=== PATIENT | female | born 1945 | race Caucasian/White ===

== ENCOUNTER 2020-01-22 08:00 | Outpatient (CLI) | payer MEDICARE, BC, SELFPAY ==
--- NOTE | ~2020-01-22 | US_ITS ---
US arterial ankle brachial ind INDICATION: Disorder of the capillaries TECHNIQUE: Segmental pressures and plethysmographic and Doppler waveforms of the brachial and lower e xtremity arteries were obtained. COMPARISON: 12/21/2014 FINDINGS: Right and left brachial artery pressures of 128 mm Hg and 135 mm Hg, respectively, are concordant (no rmal difference <= 30 mmHg). The right ankle-brachial index (JOHN) is 1.03 (normal >= 0.9-1.0). The right great toe-brachial index (TBI) is 0.84 (normal >= 0.60). The left JOHN is 1.14. The left TBI is 0.87. IMPRESSION: 1. Normal bilateral ankle and toe brachial indices. Reviewed, dictated and finalized at location A.
== END 2020-01-22 08:01 | disposition home or self-care (01) ==
LOC: ANHIMG 08:08
PROVIDERS: PCP Nurse Practitioner Adult Health; Visit Provider Nurse Practitioner Adult Health
DX: I79.8 Other disorders of arteries, arterioles and capillaries in diseases classified elsewhere (principal)
CPT/HCPCS: 93922

== ENCOUNTER 2020-10-03 10:18 | Inpatient (IN) | payer MEDICARE, BC, SELFPAY ==
[2020-10-03] VITALS (15 sets, daily range): BP systolic 99–150; BP diastolic 41–82; PULSE 56–70; RESP 16–29; TEMP 36.2–36.6; O2SAT 95–100
--- NOTE | ~2020-10-03 | US_ITS ---
EXAMINATION: US right upper quadrant EXAM DATE: 10/03/2020 12:43 INDICATION: N/V, transaminitis. TECHNIQUE: Multiple grayscale and Doppler images of the abdomen right upper quadrant were obtained (b y a technologist who performed the scan) and subsequently reviewed. There is no prior study for richa charles. FINDINGS: The pancreatic head and body are normal in appearance. The pancreatic tail is not visualized. The l iver has normal echogenicity and contour. There are no focal liver lesions identified. There is no evidence of intrahepatic biliary duct dilation. Portal venous flow was seen in the hepatopedal, nor mal direction and has normal Doppler waveform. No right-sided hydronephrosis. Common bile duct measures 4 mm, which is normal. The gallbladder fossa is unremarkable. IMPRESSION: 1. Unremarkable abdominal ultrasound exam. Reviewed, dictated and finalized at location A. RVISOR STONE
--- NOTE | ~2020-10-03 | CT_ITS ---
EXAMINATION: CTA chest PE protocol EXAM DATE: 10/03/2020 13:53 INDICATION: shortness of breath, elevated dimer, covid +. TECHNIQUE: Spiral CTA of the chest (pulmonary arteries) was performed with 100 cc Omnipaque 350 intr avenous contrast injection. Images were acquired during the pulmonary arterial phase. Coronal maxi mum intensity projection 3D-reconstructions were created by the technologist on dedicated workstation . Axial, coronal and sagittal reformatted images were reviewed. The dose-length product (DLP) for t his examination was 266.79 mGy-cm. The exposure was tailored according to patient size (auto mA exp osure control), and iterative reconstruction (ASIR) was used as additional dose reduction technique. There is no prior study for comparison. FINDINGS: There are no pulmonary emboli in the 1st through 3rd order (central and interlobar) pulmon gilbert arteries. Some loss of attenuation in the segmental pulmonary arteries due to respiratory motion , but no intraluminal filling defects suspected. No thoracic aortic dissection. Small to moderate bilateral patchy groundglass opacities Appearance is typical of early stage COVID 19. Less likely acute possibilities include influenza, pulmonary edema or hemorrhage. There are no pleural or pericardial effusions. Tracheobronchial tree is patent. There is no media stinal, hilar or axillary lymphadenopathy. There is no pneumothorax. Heart normal in size. Ther e is mild to moderate coronary arterial calcification, arterial sclerosis. There is small sliding gas troesophageal hiatal hernia. There is thoracic spondylosis without osteoblastic or osteolytic lesion s identified. IMPRESSION: 1. Limited segmental evaluation, but no pulmonary emboli are suspected. 2. Small to moderate amount of bilateral acute ground glass airspace disease, most likely COVID-19 p neumonia. Reviewed, dictated and finalized at location A. GHT CAR BUILDER IMPRESSION: 1. Limited segmental evaluation, but no pulmonary emboli are suspected. 2. Small to moderate amount of bilateral acute ground glass airspace disease, most likely COVID-19 pneumonia.
--- NOTE | ~2020-10-03 | XR_ITS ---
EXAMINATION: XR chest 1V portable DATE: 10/05/2020 15:42 INDICATION: Pneumonia presenting with cough and shortness of breath TECHNIQUE: frontal view of the chest was obtained. COMPARISON: Chest radiograph dated 10/03/2020 and 12/12/2016 FINDINGS: Chronic elevation of the anterior right hemidiaphragm. Interval increase in patchy bilateral airspace opacities throughout both lungs consistent with worsening pneumonia. The cardiomediastinal silhouett e is normal. Peripherally calcified 1.8 cm diameter fusiform splenic artery aneurysm without signific ant change since 12/12/2016. IMPRESSION: 1. Interval progression of patchy bilateral lung disease consistent with worsening pneumonia. 2. Chronic splenic artery aneurysm. Reviewed, dictated and finalized at location H. SAFETY ASSISTANT IMPRESSION: 1. Interval progression of patchy bilateral lung disease consistent with worsen ing pneumonia. 2. Chronic splenic artery aneurysm.
--- NOTE | ~2020-10-03 | US_ITS ---
EXAMINATION: US right upper quadrant DATE: 10/08/2020 09:29 INDICATION: Abnormal liver function tests. TECHNIQUE: Multiple grayscale and Doppler ultrasound images of the abdomen were obtained. COMPARISON: Ultrasound 10/03/2020, chest CT 10/03/2020 FINDINGS: The visualized portions of the head and body of the pancreas are normal. The liver is pascual l without focal lesion. There is normal flow in main portal vein. The gallbladder is absent. The comm on duct is normal and measures 7 mm. IMPRESSION: 1. Normal right upper quadrant ultrasound status post cholecystectomy. Reviewed, dictated and finalized at location A. TOGRAPHIC MACHINE OPERATOR
--- NOTE | ~2020-10-03 | US_ITS ---
EXAMINATION: US venous doppler LE EXAM DATE: 10/03/2020 13:17 INDICATION: Elevated d-dimer, shortness of breath. COVID exposure. TECHNIQUE: Multiple grayscale, color flow and Doppler images of the lower extremity deep venous syste ms bilaterally were obtained and reviewed. There is no prior study for comparison. FINDINGS: Right side: The right common femoral, femoral and profunda veins demonstrate normal color flow, respi ratory variation, augmentation and compressibility. Compressibility, color flow confirmed within the right popliteal, posterior tibial, peroneal, and greater saphenous veins. Left side: The left common femoral, femoral and profunda veins demonstrate normal color flow, respira tory variation, augmentation and compressibility. Compressibility, color flow confirmed within the l eft popliteal, posterior tibial, peroneal, and greater saphenous veins. IMPRESSION: No lower extremity deep venous thrombosis bilaterally. Reviewed, dictated and finalized at location A. AGE PICK UP MAN
--- NOTE | ~2020-10-03 | XR_ITS ---
EXAMINATION: XR chest 1V portable EXAM DATE: 10/03/2020 11:39 INDICATION: Shortness of breath. COVID + . TECHNIQUE: Portable AP frontal chest x-ray was obtained. Comparison is made to prior examination from 12/12/2016. FINDINGS: Small amount of somewhat linear bilateral midlung zone atelectasis or infection. The lungs are otherwise clear. There are no pleural effusions. The cardiomediastinal silhouette is within nor mal limits. There is no pneumothorax suspected. The bones and soft tissues are unremarkable. Chroni tino elevated right hemidiaphragm. IMPRESSION: Small amount of bilateral midlung zone atelectasis and/or infection. Reviewed, dictated and finalized at location A. TRIC ARC WELDER IMPRESSION: Small amount of bilateral midlung zone atelectasis and/or infection .
--- NOTE | ~2020-10-03 | XR_ITS ---
EXAMINATION: XR chest 1V portable DATE: 10/08/2020 09:35 INDICATION: COVID-19 pneumonia. TECHNIQUE: A single frontal view of the chest was obtained. COMPARISON: Chest single view 10/05/2020, 03/14/2012, chest CT 10/03/2020 FINDINGS: Again seen is eventration of anterior right hemidiaphragm. There are patchy airspace opacit ies in all lung zones bilaterally with a peripheral predominance with architectural distortion. No pl eural effusion or pneumothorax. The heart size is normal. There is a 1.9 cm rim calcified saccular an eurysm of splenic artery. IMPRESSION: 1. Diffuse lung disease with interval improvement, consistent with pneumonia. 2. 1.9 cm saccular aneurysm of splenic artery, stable from 03/14/2012. Reviewed, dictated and finalized at location A. RNMENT SERVICE EXECUTIVE
--- NOTE | 2020-10-03 10:26 | PC.NURSE ---
Tess Grewal. Daughter phone number ([phone])
--- NOTE | 2020-10-03 11:18 | ECG_ITS ---
Measurements Intervals [place] Rate: 60 P: 23 IL: 139 QRS: 15 QRSD: 81 T: 36 QT: 409 QTc: 411 Interpretive Statements SINUS RHYTHM BORDERLINE ST-T WAVE ABNORMALITY- ANTEROLAT/INF LEADS BASELINE ARTIFACT- I, II, III, AVR, AVL, AVF, V1-V6 BORDERLINE ECG Electronically Signed On 10-03-2020 17:13:05 PROCESS MECHANIC by Alex Garber D.O.
[2020-10-03 11:42] LABS: Basophils Percent Auto 0.5 % (0.2-1.2); Eosinophils Percent Auto 0.5 % (0-4.4); Hematocrit 40.3 % (37.0-47.0); Hemoglobin 13.7 g/dL (12.0-15.0); Immature Granulocyte Absolute 0.05 K/mm3 (0.00-0.031); Immature Granulocyte Percent A 0.9 % (0-0.5); Lymphocytes Absolute Auto 0.71 K/mm3 (0.9-3.2); Lymphocytes Percent Auto 12.9 % (18.3-44.2); Mean Corpuscular Hemoglobin 32.2 pg (26-34); Mean Corpuscular Volume 94.8 fl (80-100); Mean Platelet Volume 11.7 fl (7.4-10.4); Monocytes Absolute Auto 0.8 K/mm3 (0.1-0.6); Monocytes Percent Auto 13.6 % (2.6-8.5); Neutrophils Percent Auto 71.6 % (45.5-73.1); Platelet Count Result 161 k/mm3 (150-375); Red Blood Count 4.25 M/mm3 (4.2-5.4); Red Cell Distribution Width 14.9 % (11.5-14.5); White Blood Count 5.5 K/mm3 (4.5-10.0)
[2020-10-03 11:46] LABS: Carboxyhemoglobin 0.7 % THb (0-2.0); Fractional Inspired Oxygen 21 %; HCO3 ABG 21.6 mEq/l (22.0-26.0); Oxygen Content ABG 17.4 %vol (16.0-22.0); Oxygen Saturation ABG 92.8 % (95.0-100.0); Oxyhemoglobin 91.5 % THb (90.0-100.0); PCO2 ABG 33.4 mmHg (35.0-45.0); PO2 ABG 62.7 mmHg (80.0-100.0); PO2 FiO2 Ratio Arterial Blood 2.99 %; Reduced Hemoglobin 7.8 %THb (0-5.0); Total Hemoglobin 13.5 g/dL (12.0-18.0); pH ABG 7.428 (7.350-7.450)
[2020-10-03 11:47] LABS: Device ROOM AIR; Modified Allen's Test Pass; Site Drawn RIGHT RADIAL
[2020-10-03 11:51] LABS: INR 0.9; Prothrombin Time 12.8 Seconds (11.1-14.7)
[2020-10-03 11:52] LABS: Partial Thromboplastin Time 26.7 SECONDS (22.3-36.8)
[2020-10-03 11:54] LABS: Lactic Acid Reflex 0.9 mmol/L (0.7-2.1)
--- NOTE | 2020-10-03 11:54 | PC.NURSE ---
Called chemistry Rosalba added on bnp at 11:54.
--- NOTE | 2020-10-03 11:55 | ED.SOB ---
HPI - SOB/Dyspnea General Chief Complaint: Shortness of Breath/Dyspnea Stated Complaint: COVID +, SOB Time Seen by Provider: 10/03/20 11:21 Source: patient Mode of arrival: EMS Limitations: no limitations History of Present Illness HPI Narrative: This is a 74 year old female that present to the ER for weakness. Reports she was diagnosed with COVID about 8 days ago. Reports she was seen at an urgent care for this and has finished 5 days of steroid and a Z pac. Reports she has been weak, is having fever, cough and congestion. Also reports shortness of breath. She lives at home alone. Denies chest pain. Related Data Home Medications Medication Instructions Recorded Confirmed albuterol sulfate [ProAir HFA] INHALATION 10/03/20 10/03/20 amitriptyline 10/03/20 atorvastatin 10/03/20 benzonatate mg PO 10/03/20 ergocalciferol (vitamin D2) 10/03/20 esomeprazole magnesium mg 10/03/20 folic acid 10/03/20 irbesartan mg 10/03/20 montelukast mg 10/03/20 oxybutynin chloride mg PO 10/03/20 paroxetine HCl mg PO 10/03/20 Allergies Allergy/AdvReac Type Severity Reaction Status Date / Time latex Allergy Severe REDNESS,BLISTERS, Verified 10/03/20 11:20 RASH bacitracin Allergy Unknown RASH, Verified 10/03/20 11:20 REDNESS codeine Allergy Unknown THROAT Verified 10/03/20 11:20 SWEELING polymyxin B Allergy Unknown RASH, Verified 10/03/20 11:20 REDNESS buspirone AdvReac Mild STOMACH Verified 10/03/20 11:20 UPSET rofecoxib AdvReac Mild NAUSEA Verified 10/03/20 11:20 celecoxib AdvReac Unknown NAUSEA Verified 10/03/20 11:20 gabapentin AdvReac Unknown Verified 10/03/20 11:21 Review of Systems Review of Systems: Narrative: CONSTITUTIONAL: Reports fever ENT: Reports congestion, sore throat CARDIOVASCULAR: Denies chest pain or edema. RESPIRATORY: Reports cough and dyspnea. GASTROINTESTINAL: Reports nausea, vomiting GENITOURINARY: Denies dysuria NEUROLOGIC: Reports generalized weakness. All systems reviewed & are unremarkable except as noted in HPI and below PMFSH Past Medical History Medical History (Updated 10/03/20 @ 15:12 by Mouna Baker PA-C) History of coronary artery disease History of gastroesophageal reflux (GERD) History of hyperlipidemia History of hypertension Family History Family History (Updated 10/03/20 @ 16:16 by Melissa Guaman RN) Father Lung cancer Mother Alzheimer disease Social History Social History (Updated 10/03/20 @ 12:01 by Mouna Baker PA-C) Smoking status: Never smoker Alcohol intake: current Drinks per week: 1 Substance use: never Gender identity (if verbalized by the patient): Female Spiritual care concerns: No Exam Narrative: Exam Narrative: GENERAL: Elderly, well-nourished, and in no acute distress. HEAD: Normocephalic, atraumatic. EYES: PERRLA and EOMI. ENT: Nares clear, no rhinorrhea or epistaxis. Mucous membranes moist. Oropharynx without tonsillar hypertrophy exudate or other lesions. Bilateral TMs pearly bustos non-bulging NECK: Supple. No adenopathy or masses. CHEST: Clear to auscultation. No respiratory distress. No wheezes rales or rhonchi HEART: Regular rate and rhythm. No murmur heard. Normal peripheral pulses. ABDOMEN: Soft, nontender, nondistended, normal active bowel sounds. EXTREMITIES: Normal range of motion. No edema. SKIN: Warm, dry, no rash. NEURO: No focal deficits. Alert and oriented x3. PSYCH: Normal mood and affect Course Consultations Consultation #1: Spoke with hospitalist about patient and work-up accepts admission Date: 10/03/20 Time: 16:22 Vital Signs Vital signs: Vital Signs Temperature 97.1 F L 10/03/20 10:45 Pulse Rate 70 10/03/20 10:45 Respiratory Rate 26 H 10/03/20 10:45 Blood Pressure 150/61 H 10/03/20 10:45 Pulse Oximetry 97 10/03/20 10:45 Temperature 97.1 F L 10/03/20 10:45 Pulse Rate 65 10/03/20 15:25 Respiratory Rate 16 10/03/20 15:25 Blood Pressure 140/62
[2020-10-03 11:56] LABS: Anion Gap 8 mmol/L (8-16); Blood Urea Nitrogen 21 mg/dL (7-17); Calcium 8.8 mg/dL (8.4-10.2); Carbon Dioxide 28 mmol/L (22-30); Chloride 103 mmol/L (98-107); Estimated CRCL calculation 57 ml/min; Estimated Glomerular Filt Rate > 60; Glucose 117 mg/dL (65-105); Sodium 139 mmol/L (137-145)
[2020-10-03 11:57] LABS: Alanine Aminotransferase 152 U/L (4-35); Albumin Level 3.8 g/dL (3.5-5.1); Alkaline Phosphatase 187 U/L (38-126); Aspartate Amino Transferase 142 U/L (14-36); Bilirubin,Total 1.1 mg/dL (0.2-1.3); CRP 6.6 mg/dL (<1.0); Lactate Dehydrogenase 860 U/L (313-618)
--- NOTE | 2020-10-03 11:59 | PC.NURSE ---
called heme, Rose Marie, added on D Dimer [id number]
[2020-10-03] MEDS: ONDANSETRON INJ 4 MG/2 ML VIAL IV PUSH (12:15)
[2020-10-03] MEDS: SODIUM CHLORIDE 0.9% IV 500 ML BAG IV CONT (12:15)
[2020-10-03 12:17] LABS: D Dimer 0.82 ug/mL (<0.48)
[2020-10-03 12:27] LABS: NT Pro B Type Natriuretic Pept 136 PG/ML (5-100)
[2020-10-03] MEDS: DEXAMETHASONE SOD PHOS INJ 4 MG/ML VIAL 6 MG IV PUSH (15:07)
[2020-10-03] MEDS: ENOXAPARIN 40 MG/0.4 ML SYRINGE SUB-Q (15:08)
--- NOTE | 2020-10-03 16:05 | ADMGEN ---
This patient, Renee Fernandez, was admitted to 3 [facility] Surg Room 327-01. Patient/family oriented to hospital policies and general routines including ID bracelet, bed and alarms, visiting hours, pain management, procedures, bathroom and other care routines, personal items, smoking policy, room service/diet, and visiting hours. Information on how to activate the Rapid Response Team has been discussed. Patient/Family are encouraged to report perceived risks to care and to ask questions if they do not understand what they are told or what they should do.
--- NOTE | 2020-10-03 18:15 | PM.IMHP ---
H&P: HPI History of Present Illness Date/Time: 10/03/20 18:15 Chief complaint: COVID Pneumonia, Acute resp failure with hypoxia Narrative: Renee Fernandez is a 74 year old female with a past medical history of coronary artery disease hypertension GERD patient was initially seen at an urgent care 8 days ago and was positive for COVID-19 patient was started on short course of steroid and azithromycin completed 5 day course, patient states today she felt more tired short of breath and difficulty taking patient deep breath, presented emergency depart to further evaluate patient had a CTA of the chest is negative for pulmonary emboli but does show ground-glass appeared consistent with COVID-19, lower extremity Doppler was negative for DVT. Patient is started on dexamethasone, currently patient does not have fever, and requiring 2 L of oxygen per nasal cannula, will continue to monitor Review of Systems Review of Systems: All systems reviewed & are unremarkable except as noted in HPI and below PMFSH Past Medical History Medical History (Updated 10/03/20 @ 18:23 by Meliton Arrington MD) History of coronary artery disease History of gastroesophageal reflux (GERD) History of hyperlipidemia History of hypertension Family History Family History (Updated 10/03/20 @ 16:16 by Melissa Guaman RN) Father Lung cancer Mother Alzheimer disease Social History Social History (Updated 10/03/20 @ 12:01 by Mouna Baker PA-C) Smoking status: Never smoker Alcohol intake: current Drinks per week: 1 Substance use: never Gender identity (if verbalized by the patient): Female Spiritual care concerns: No Meds Home Medications and Allergies Home Medications Medication Instructions Recorded Confirmed Type albuterol sulfate [ProAir HFA] 2 puff INHALATION QID PRN 10/03/20 10/03/20 History alprazolam [Xanax] 0.25 mg PO DAILY PRN 10/03/20 10/03/20 History atorvastatin 10 mg PO DAILY 10/03/20 10/03/20 History esomeprazole magnesium 40 mg PO DAILY 10/03/20 10/03/20 History folic acid 1 mg PO DAILY 10/03/20 10/03/20 History irbesartan 300 mg PO DAILY 10/03/20 10/03/20 History methotrexate sodium 12.5 mg PO BID 10/03/20 10/03/20 History montelukast 10 mg PO DAILY 10/03/20 10/03/20 History oxybutynin chloride 5 mg PO DAILY 10/03/20 10/03/20 History paroxetine HCl 40 mg PO DAILY 10/03/20 10/03/20 History Allergies Allergy/AdvReac Type Severity Reaction Status Date / Time latex Allergy Severe REDNESS,BLISTERS, Verified 10/03/20 11:20 RASH bacitracin Allergy Unknown RASH, Verified 10/03/20 11:20 REDNESS codeine Allergy Unknown THROAT Verified 10/03/20 11:20 SWEELING polymyxin B Allergy Unknown RASH, Verified 10/03/20 11:20 REDNESS buspirone AdvReac Mild STOMACH Verified 10/03/20 11:20 UPSET rofecoxib AdvReac Mild NAUSEA Verified 10/03/20 11:20 celecoxib AdvReac Unknown NAUSEA Verified 10/03/20 11:20 gabapentin AdvReac Unknown Verified 10/03/20 11:21 Vital Signs Vital Signs - 24 hr 10/03/20 10:45 10/03/20 12:00 10/03/20 12:01 Temperature 97.1 F L Pulse Rate 70 62 62 Respiratory Rate 26 H Blood Pressure 150/61 H 116/81 118/60 Pulse Oximetry 97 10/03/20 12:02 10/03/20 12:16 10/03/20 13:01 Temperature Pulse Rate 64 61 63 Respiratory Rate 18 29 H Blood Pressure 101/59 L 113/55 L 150/65 H Pulse Oximetry 100 96 10/03/20 13:59 10/03/20 14:01 10/03/20 15:01 Temperature Pulse Rate 64 64 64 Respiratory Rate 23 H 22 H 29 H Blood Pressure 136/68 140/62 99/82 L Pulse Oximetry 99 100 10/03/20 15:25 10/03/20 16:45 10/03/20 16:53 Temperature 97.7 F Pulse Rate 65 56 L Respiratory Rate 16 18 Blood Pressure 140/62 142/41 H Pulse Oximetry 98 98 95 Exam Narrative: Exam Narrative: Patient is comfortable, NAD HEENT: eyes are clear and none icteric LUNGS: Bilateral fair entry with rhonchi HEART: RR S1S2 ABD: BS+, Soft and nontender Lower extremities: no
[2020-10-04] VITALS (11 sets, daily range): BP systolic 116–150; BP diastolic 59–72; PULSE 52–80; RESP 16–20; TEMP 36.4–37.2; O2SAT 93–97
[2020-10-04] MEDS: DEXAMETHASONE SOD PHOS INJ 4 MG/ML VIAL 6 MG IV PUSH (09:00)
[2020-10-04] MEDS: ENOXAPARIN 40 MG/0.4 ML SYRINGE SUB-Q (09:00)
[2020-10-04] MEDS: PARoxetine 20 MG TABLET 40 MG PO (09:02)
[2020-10-04] MEDS: FOLIC ACID 1 MG TABLET PO (09:02)
[2020-10-04] MEDS: PANTOPRAZOLE 40 MG TABLET PO (09:02)
[2020-10-04] MEDS: MONTELUKAST SODIUM 10 MG TABLET PO (09:03)
[2020-10-04] MEDS: ACETAMINOPHEN 325 MG TABLET 650 MG PO (13:44)
--- NOTE | 2020-10-04 15:12 | PM.IMPN ---
Progress Note: A&P Assessment and Plan (1) Pneumonia due to COVID-19 virus: Code(s): U07.1 - COVID-19; J12.89 - Other viral pneumonia Status: Acute Assessment and Plan: 10/04/20 15:12 Renee Fernandez is a 74 year old female with a past medical history of coronary artery disease hypertension GERD patient was initially seen at an urgent care 9 days ago and was positive for COVID-19 patient was started on short course of steroid and azithromycin completed 5 day course, patient stated upon arrival, she felt more tired, short of breath and difficulty taking patient deep breath, presented emergency depart to further evaluate patient had a CTA of the chest is negative for pulmonary emboli but does show ground-glass appeared consistent with COVID-19, lower extremity Doppler was negative for DVT. Patient is started on dexamethasone, today patient is stable feeling little better not as short of breath, currently patient does not have fever, and requiring 2 L of oxygen per nasal cannula, will continue to monitor, will have a PT OT evaluate the patient (2) History of hypertension: Code(s): Z86.79 - Personal history of other diseases of the circulatory system Status: Inactive Assessment and Plan: Will continue home regimen and monitor (3) History of gastroesophageal reflux (GERD): Code(s): Z87.19 - Personal history of other diseases of the digestive system Status: Inactive Assessment and Plan: Will continue PPI (4) History of coronary artery disease: Code(s): Z86.79 - Personal history of other diseases of the circulatory system Status: Inactive Assessment and Plan: Patient is clinically stable no complaint of chest pain Subjective Date/time seen: 10/04/20 15:12 Renee Fernandez is a 74 year old female with a past medical history of coronary artery disease hypertension GERD patient was initially seen at an urgent care 9 days ago and was positive for COVID-19 patient was started on short course of steroid and azithromycin completed 5 day course, patient stated upon arrival, she felt more tired, short of breath and difficulty taking patient deep breath, presented emergency depart to further evaluate patient had a CTA of the chest is negative for pulmonary emboli but does show ground-glass appeared consistent with COVID-19, lower extremity Doppler was negative for DVT. Patient is started on dexamethasone, today patient is stable feeling little better not as short of breath, currently patient does not have fever, and requiring 2 L of oxygen per nasal cannula, will continue to monitor, will have a PT OT evaluate the patient Review of Systems Review of Systems: All systems reviewed & are unremarkable except as noted in HPI and below Exam Narrative: Exam Narrative: Patient is comfortable, NAD HEENT: eyes are clear and none icteric LUNGS: Bilateral fair entry with rhonchi HEART: RR S1S2 ABD: BS+, Soft and nontender Lower extremities: no edema SKIN: nonjaundiced Neuro: grossly intact. Objective Data Vital Signs Vital Signs: Vital Signs - 24 hr 10/03/20 15:25 10/03/20 16:45 10/03/20 16:53 Temperature 97.7 F Pulse Rate 65 56 L Respiratory Rate 16 18 Blood Pressure 140/62 142/41 H Pulse Oximetry 98 98 95 10/03/20 20:00 10/03/20 21:44 10/04/20 00:00 Temperature 97.8 F 97.6 F Pulse Rate 65 61 60 Respiratory Rate 18 16 Blood Pressure 128/61 150/70 H Pulse Oximetry 96 96 93 10/04/20 04:00 10/04/20 08:00 10/04/20 09:00 Temperature 98.1 F 97.8 F Pulse Rate 57 L 63 Respiratory Rate 18 18 Blood Pressure 125/65 140/59 L Pulse Oximetry 97 97 97 10/04/20 11:07 10/04/20 12:00 10/04/20 13:00 Temperature 98.0 F Pulse Rate 70 Respiratory Rate 20 Blood Pressure 129/59 L Pulse Oximetry 93 96 96 Intake/Output Intake/Output: Intake & Output 10/01/20 10/02/20 10/03/20 10/04/20 23:59 23:59 23:59 23:59 Intake Total 540 240 Outp
[2020-10-04] MEDS: ATORVASTATIN 10 MG TABLET PO (20:04)
[2020-10-04] MEDS: IRBESARTAN 150 MG TABLET 300 MG PO (20:05)
[2020-10-04 23:12] LABS: Add Urine Microscopic? YES; Appearance Urine Clear (Clear); Bacteria Urine Trace /hpf; Bilirubin Urine Negative (Negative); Blood Urine Negative (Negative); Color Urine Yellow (Yellow); Glucose Urine UA Negative (Negative); Ketones Urine Negative (Negative); Leukocyte Esterase Ur Negative LEU/UL (Negative); Mucus Urine Rare /lpf; Nitrate Urine Negative (Negative); Protein Urine 2+ mg/dL (Negative); RBC Urine 0-2 /hpf (0-2); Squamous Epithelial Cell Urine Few /hpf (Few); WBC Urine 0-3 /hpf
[2020-10-04 23:17] LABS: Specific Grav Ur 1.031 (1.001-1.035)
[2020-10-04] MEDS: diphenhydrAMINE HCl INJ 50 MG/ML VIAL 25 MG IV PUSH (23:49)
[2020-10-05] VITALS (12 sets, daily range): BP systolic 105–145; BP diastolic 46–77; PULSE 58–77; RESP 16–22; TEMP 36.6–38.8; O2SAT 93–96
[2020-10-05] MEDS: ALPRAZolam (*CRX) 0.25 MG TABLET PO (00:27)
[2020-10-05] MEDS: ACETAMINOPHEN 325 MG TABLET 650 MG PO ×2 (01:12→08:25)
[2020-10-05 07:57] LABS: Basophils Percent Auto 0.3 % (0.2-1.2); Eosinophils Percent Auto 0.2 % (0-4.4); Hematocrit 32.3 % (37.0-47.0); Hemoglobin 11.1 g/dL (12.0-15.0); Immature Granulocyte Absolute 0.05 K/mm3 (0.00-0.031); Immature Granulocyte Percent A 0.8 % (0-0.5); Lymphocytes Absolute Auto 0.83 K/mm3 (0.9-3.2); Lymphocytes Percent Auto 12.9 % (18.3-44.2); Mean Corpuscular HGB Conc 34.4 g/dl (32-36); Mean Corpuscular Hemoglobin 32.4 pg (26-34); Mean Corpuscular Volume 94.2 fl (80-100); Mean Platelet Volume 11.2 fl (7.4-10.4); Monocytes Absolute Auto 0.7 K/mm3 (0.1-0.6); Monocytes Percent Auto 11.3 % (2.6-8.5); Neutrophils Absolute Auto 4.8 K/mm3 (1.3-6.7); Neutrophils Percent Auto 74.5 % (45.5-73.1); Platelet Count Result 159 k/mm3 (150-375); Red Blood Count 3.43 M/mm3 (4.2-5.4); Red Cell Distribution Width 14.6 % (11.5-14.5); White Blood Count 6.4 K/mm3 (4.5-10.0)
[2020-10-05 08:15] LABS: Alanine Aminotransferase 96 U/L (4-35); Albumin Level 3.1 g/dL (3.5-5.1); Alkaline Phosphatase 128 U/L (38-126); Anion Gap 5 mmol/L (8-16); Aspartate Amino Transferase 71 U/L (14-36); Bilirubin,Total 0.7 mg/dL (0.2-1.3); Blood Urea Nitrogen 26 mg/dL (7-17); CRP 3.9 mg/dL (<1.0); Calcium 8.3 mg/dL (8.4-10.2); Carbon Dioxide 31 mmol/L (22-30); Chloride 102 mmol/L (98-107); Estimated CRCL calculation 52 ml/min; Estimated Glomerular Filt Rate > 60; Glucose 89 mg/dL (65-105); Potassium 3.7 mmol/L (3.4-5.0); Sodium 138 mmol/L (137-145)
[2020-10-05] MEDS: ENOXAPARIN 40 MG/0.4 ML SYRINGE SUB-Q (08:27)
[2020-10-05] MEDS: DEXAMETHASONE SOD PHOS INJ 4 MG/ML VIAL 6 MG IV PUSH (08:27)
[2020-10-05] MEDS: PARoxetine 20 MG TABLET 40 MG PO (08:28)
[2020-10-05] MEDS: MONTELUKAST SODIUM 10 MG TABLET PO (08:28)
[2020-10-05] MEDS: FOLIC ACID 1 MG TABLET PO (08:28)
[2020-10-05] MEDS: PANTOPRAZOLE 40 MG TABLET PO (08:28)
[2020-10-05] MEDS: ONDANSETRON INJ 4 MG/2 ML VIAL IV PUSH (09:00)
--- NOTE | 2020-10-05 09:23 | PCOTNOTE ---
OT evaluation attempted. Per RN, hold this AM due to patient increased O2 needs and not feeling will. Will attempt as appropriate at later time.
--- NOTE | 2020-10-05 09:28 | PCPTNOTE ---
PT evaluation attempted. Per RN, hold this AM due to patient increased O2 needs and fever. Will attempt as appropriate at later time.
--- NOTE | 2020-10-05 14:53 | PM.IMPN ---
Progress Note: A&P Assessment and Plan (1) Pneumonia due to COVID-19 virus: Code(s): U07.1 - COVID-19; J12.89 - Other viral pneumonia Status: Acute Assessment and Plan: 10/05/20 14:53 Renee Fernandez is a 74 year old female with a past medical history of coronary artery disease hypertension GERD patient was initially seen at an urgent care 11 days ago and was positive for COVID-19 patient was started on short course of steroid and azithromycin completed 5 day course, patient stated upon arrival, she felt more tired, short of breath and difficulty taking patient deep breath, presented emergency depart to further evaluate patient had a CTA of the chest is negative for pulmonary emboli but does show ground-glass appeared consistent with COVID-19, lower extremity Doppler was negative for DVT. Patient is started on dexamethasone, on 10/04 patient complained of fever and was requiring 2 L of oxygen patient was started on azithromycin and Rocephin for possible secondary bacterial pneumonia, apparently patient developed rash and itchiness upon receiving Rocephin patient was given Benadryl, stopped Rocephin this morning patient still states feeling tired shortness of breath, denies any fever or chills, will repeat chest x-ray will continue present management, most likely patient is having slow recovery from COVID-19. (2) History of hypertension: Code(s): Z86.79 - Personal history of other diseases of the circulatory system Status: Inactive Assessment and Plan: Will continue home regimen and monitor (3) History of gastroesophageal reflux (GERD): Code(s): Z87.19 - Personal history of other diseases of the digestive system Status: Inactive Assessment and Plan: Will continue PPI (4) History of coronary artery disease: Code(s): Z86.79 - Personal history of other diseases of the circulatory system Status: Inactive Assessment and Plan: Patient is clinically stable no complaint of chest pain Subjective Date/time seen: 10/05/20 14:53 Renee Fernandez is a 74 year old female with a past medical history of coronary artery disease hypertension GERD patient was initially seen at an urgent care 11 days ago and was positive for COVID-19 patient was started on short course of steroid and azithromycin completed 5 day course, patient stated upon arrival, she felt more tired, short of breath and difficulty taking patient deep breath, presented emergency depart to further evaluate patient had a CTA of the chest is negative for pulmonary emboli but does show ground-glass appeared consistent with COVID-19, lower extremity Doppler was negative for DVT. Patient is started on dexamethasone, on 10/04 patient complained of fever and was requiring 2 L of oxygen patient was started on azithromycin and Rocephin for possible secondary bacterial pneumonia, apparently patient developed rash and itchiness upon receiving Rocephin patient was given Benadryl, stopped Rocephin this morning patient still states feeling tired shortness of breath, denies any fever or chills, will repeat chest x-ray will continue present management, most likely patient is having slow recovery from COVID-19. Review of Systems Review of Systems: All systems reviewed & are unremarkable except as noted in HPI and below Exam Narrative: Exam Narrative: Patient is comfortable, NAD HEENT: eyes are clear and none icteric LUNGS: Bilateral fair entry with rhonchi HEART: RR S1S2 ABD: BS+, Soft and nontender Lower extremities: no edema SKIN: nonjaundiced Neuro: grossly intact. Objective Data Vital Signs Vital Signs: Vital Signs - 24 hr 10/04/20 16:00 10/04/20 20:00 10/04/20 20:04 Temperature 98.9 F Pulse Rate 71 64 Respiratory Rate 20 Blood Pressure 124/62 Pulse Oximetry 94 95 10/04/20 20:25 10/05/20 00:00 10/05/20 01:12 Temperature 97.9 F 99.7 F H 101.8 F H Pulse Rate 80 77 Respiratory Rate 20 22 H Blood P
[2020-10-05] MEDS: ATORVASTATIN 10 MG TABLET PO (20:02)
[2020-10-05] MEDS: IRBESARTAN 150 MG TABLET 300 MG PO (20:02)
[2020-10-06] VITALS (9 sets, daily range): BP systolic 117–131; BP diastolic 47–81; PULSE 54–68; RESP 16–20; TEMP 36.6–38.1; O2SAT 94–98
[2020-10-06] MEDS: ACETAMINOPHEN 325 MG TABLET 650 MG PO ×3 (03:12→21:30)
[2020-10-06 07:55] LABS: Basophils Percent Auto 0.4 % (0.2-1.2); Eosinophils Percent Auto 0.1 % (0-4.4); Hematocrit 30.4 % (37.0-47.0); Hemoglobin 10.3 g/dL (12.0-15.0); Immature Granulocyte Absolute 0.05 K/mm3 (0.00-0.031); Immature Granulocyte Percent A 0.7 % (0-0.5); Lymphocytes Absolute Auto 0.75 K/mm3 (0.9-3.2); Lymphocytes Percent Auto 10.9 % (18.3-44.2); Mean Corpuscular HGB Conc 33.9 g/dl (32-36); Mean Corpuscular Hemoglobin 31.7 pg (26-34); Mean Corpuscular Volume 93.5 fl (80-100); Mean Platelet Volume 11.4 fl (7.4-10.4); Monocytes Absolute Auto 0.9 K/mm3 (0.1-0.6); Monocytes Percent Auto 13.4 % (2.6-8.5); Neutrophils Absolute Auto 5.1 K/mm3 (1.3-6.7); Neutrophils Percent Auto 74.5 % (45.5-73.1); Platelet Count Result 162 k/mm3 (150-375); Red Blood Count 3.25 M/mm3 (4.2-5.4); Red Cell Distribution Width 14.6 % (11.5-14.5); White Blood Count 6.9 K/mm3 (4.5-10.0)
[2020-10-06 08:18] LABS: Alanine Aminotransferase 123 U/L (4-35); Albumin Level 2.9 g/dL (3.5-5.1); Alkaline Phosphatase 118 U/L (38-126); Anion Gap 6 mmol/L (8-16); Aspartate Amino Transferase 89 U/L (14-36); Bilirubin,Total 0.7 mg/dL (0.2-1.3); Blood Urea Nitrogen 24 mg/dL (7-17); CRP 5.5 mg/dL (<1.0); Calcium 8.3 mg/dL (8.4-10.2); Carbon Dioxide 27 mmol/L (22-30); Chloride 105 mmol/L (98-107); Estimated CRCL calculation 57 ml/min; Estimated Glomerular Filt Rate > 60; Glucose 109 mg/dL (65-105); Sodium 138 mmol/L (137-145)
[2020-10-06] MEDS: DEXAMETHASONE SOD PHOS INJ 4 MG/ML VIAL 6 MG IV PUSH (08:41)
[2020-10-06] MEDS: ENOXAPARIN 40 MG/0.4 ML SYRINGE SUB-Q ×2 (08:41→21:28)
[2020-10-06] MEDS: FOLIC ACID 1 MG TABLET PO (08:41)
[2020-10-06] MEDS: MONTELUKAST SODIUM 10 MG TABLET PO (08:42)
[2020-10-06] MEDS: PARoxetine 20 MG TABLET 40 MG PO (08:42)
[2020-10-06] MEDS: PANTOPRAZOLE 40 MG TABLET PO (08:42)
[2020-10-06 09:07] LABS: Potassium 3.4 mmol/L (3.4-5.0)
[2020-10-06] MEDS: POTASSIUM CHLORIDE 20 MEQ PACKET (FOR LIQUID) 40 MEQ PO (12:42)
--- NOTE | 2020-10-06 13:25 | PM.IMPN ---
Progress Note: A&P Assessment and Plan (1) Pneumonia due to COVID-19 virus: Code(s): U07.1 - COVID-19; J12.89 - Other viral pneumonia Status: Acute Assessment and Plan: 10/06/20 13:25 Renee Fernandez is a 74 year old female with a past medical history of coronary artery disease hypertension GERD patient was initially seen at an urgent care 12 days ago and was positive for COVID-19 patient was started on short course of steroid and azithromycin completed 5 day course, patient stated upon arrival, she felt more tired, short of breath and difficulty taking patient deep breath, presented emergency depart to further evaluate patient had a CTA of the chest is negative for pulmonary emboli but does show ground-glass appeared consistent with COVID-19, lower extremity Doppler was negative for DVT. Patient is started on dexamethasone, on 10/04 patient complained of fever and was requiring 2 L of oxygen patient was started on azithromycin and Rocephin for possible secondary bacterial pneumonia, apparently patient developed rash and itchiness upon receiving Rocephin patient was given Benadryl, stopped Rocephin this morning patient still states feeling tired shortness of breath, denies any fever or chills. Patient still complains of fever and shortness of breath, is states was not able to sleep, patient has a low-grade intermittent fever is only requiring 2 L of oxygen, repeat x-ray 10/05 showed infiltrate patient was started on Levaquin patient is on dexamethasone, most likely patient is having slow recovery from COVID-19, patient also has history of rheumatoid arthritis and on methotrexate, patient was diagnosed 12 days ago, since patient was diagnosed with COVID-19, its too late now to start the patient on remdesivir will continue dexamethasone, levofloxcin and and monitor oxygen and fever and further recommendation to follow, I spoke with the patient's daughter and answered all her questions. (2) History of hypertension: Code(s): Z86.79 - Personal history of other diseases of the circulatory system Status: Inactive Assessment and Plan: Will continue home regimen and monitor (3) History of gastroesophageal reflux (GERD): Code(s): Z87.19 - Personal history of other diseases of the digestive system Status: Inactive Assessment and Plan: Will continue PPI (4) History of coronary artery disease: Code(s): Z86.79 - Personal history of other diseases of the circulatory system Status: Inactive Assessment and Plan: Patient is clinically stable no complaint of chest pain Subjective Date/time seen: 10/06/20 13:25 Renee Fernandez is a 74 year old female with a past medical history of coronary artery disease hypertension GERD patient was initially seen at an urgent care 12 days ago and was positive for COVID-19 patient was started on short course of steroid and azithromycin completed 5 day course, patient stated upon arrival, she felt more tired, short of breath and difficulty taking patient deep breath, presented emergency depart to further evaluate patient had a CTA of the chest is negative for pulmonary emboli but does show ground-glass appeared consistent with COVID-19, lower extremity Doppler was negative for DVT. Patient is started on dexamethasone, on 10/04 patient complained of fever and was requiring 2 L of oxygen patient was started on azithromycin and Rocephin for possible secondary bacterial pneumonia, apparently patient developed rash and itchiness upon receiving Rocephin patient was given Benadryl, stopped Rocephin this morning patient still states feeling tired shortness of breath, denies any fever or chills. Patient still complains of fever and shortness of breath, is states was not able to sleep, patient has a low-grade intermittent fever is only requiring 2 L of oxygen, repeat x-ray 10/05 showed infiltrate patient was started on Levaquin patient is on dexamethasone, most likely patie
[2020-10-06] MEDS: IRBESARTAN 150 MG TABLET 300 MG PO (21:28)
[2020-10-06] MEDS: ALPRAZolam (*CRX) 0.25 MG TABLET PO (21:28)
[2020-10-06] MEDS: ATORVASTATIN 10 MG TABLET PO (21:28)
[2020-10-06] MEDS: guaiFENesin/DEXTROMETHORPHAN 10 ML UDC PO (22:20)
[2020-10-06] MEDS: MELATONIN 5 MG TABLET PO (22:20)
[2020-10-07] VITALS (8 sets, daily range): BP systolic 95–135; BP diastolic 40–81; PULSE 54–801; RESP 16–28; TEMP 36.3–37.7; O2SAT 96–97
[2020-10-07] MEDS: guaiFENesin/DEXTROMETHORPHAN 10 ML UDC PO ×3 (02:24→17:43)
[2020-10-07] MEDS: ACETAMINOPHEN 325 MG TABLET 650 MG PO (05:05)
[2020-10-07 07:09] LABS: Basophils Percent Auto 0.2 % (0.2-1.2); Hematocrit 30.6 % (37.0-47.0); Hemoglobin 10.5 g/dL (12.0-15.0); Immature Granulocyte Absolute 0.08 K/mm3 (0.00-0.031); Lymphocytes Absolute Auto 0.65 K/mm3 (0.9-3.2); Mean Corpuscular HGB Conc 34.3 g/dl (32-36); Mean Corpuscular Hemoglobin 32.1 pg (26-34); Mean Corpuscular Volume 93.6 fl (80-100); Mean Platelet Volume 11.7 fl (7.4-10.4); Monocytes Absolute Auto 0.6 K/mm3 (0.1-0.6); Monocytes Percent Auto 7.2 % (2.6-8.5); Neutrophils Absolute Auto 6.8 K/mm3 (1.3-6.7); Neutrophils Percent Auto 83.6 % (45.5-73.1); Platelet Count Result 174 k/mm3 (150-375); Red Blood Count 3.27 M/mm3 (4.2-5.4); Red Cell Distribution Width 14.6 % (11.5-14.5); White Blood Count 8.1 K/mm3 (4.5-10.0)
[2020-10-07 07:42] LABS: Alanine Aminotransferase 178 U/L (4-35); Albumin Level 2.8 g/dL (3.5-5.1); Alkaline Phosphatase 134 U/L (38-126); Anion Gap 4 mmol/L (8-16); Aspartate Amino Transferase 123 U/L (14-36); Bilirubin,Total 0.8 mg/dL (0.2-1.3); Blood Urea Nitrogen 22 mg/dL (7-17); CRP 7.6 mg/dL (<1.0); Calcium 8.5 mg/dL (8.4-10.2); Carbon Dioxide 30 mmol/L (22-30); Chloride 104 mmol/L (98-107); Estimated CRCL calculation 57 ml/min; Estimated Glomerular Filt Rate > 60; Glucose 80 mg/dL (65-105); Potassium 3.6 mmol/L (3.4-5.0); Sodium 138 mmol/L (137-145)
[2020-10-07] MEDS: ALPRAZolam (*CRX) 0.25 MG TABLET PO ×2 (09:00→17:43)
[2020-10-07] MEDS: ENOXAPARIN 40 MG/0.4 ML SYRINGE SUB-Q ×2 (09:06→21:08)
[2020-10-07] MEDS: FOLIC ACID 1 MG TABLET PO (09:07)
[2020-10-07] MEDS: MONTELUKAST SODIUM 10 MG TABLET PO (09:07)
[2020-10-07] MEDS: PANTOPRAZOLE 40 MG TABLET PO (09:08)
[2020-10-07] MEDS: PARoxetine 20 MG TABLET 40 MG PO (09:09)
[2020-10-07] MEDS: DEXAMETHASONE SOD PHOS INJ 4 MG/ML VIAL 6 MG IV PUSH (11:23)
--- NOTE | 2020-10-07 15:25 | PM.IMPN ---
Progress Note: A&P Assessment and Plan (1) Pneumonia due to COVID-19 virus: Code(s): U07.1 - COVID-19; J12.89 - Other viral pneumonia Status: Acute Assessment and Plan: 10/07/20 15:25 Renee Fernandez is a 74 year old female with a past medical history of coronary artery disease hypertension GERD patient was initially seen at an urgent care 12 days ago and was positive for COVID-19 patient was started on short course of steroid and azithromycin completed 5 day course, patient stated upon arrival, she felt more tired, short of breath and difficulty taking patient deep breath, presented emergency depart to further evaluate patient had a CTA of the chest is negative for pulmonary emboli but does show ground-glass appeared consistent with COVID-19, lower extremity Doppler was negative for DVT. Patient is started on dexamethasone, on 10/04 patient complained of fever and was requiring 2 L of oxygen patient was started on azithromycin and Rocephin for possible secondary bacterial pneumonia, apparently patient developed rash and itchiness upon receiving Rocephin patient was given Benadryl, stopped Rocephin this morning patient still states feeling tired shortness of breath, denies any fever or chills. Patient still complains of fever and shortness of breath, is states was not able to sleep, patient has a low-grade intermittent fever is only requiring 2 L of oxygen, repeat x-ray 10/05 showed infiltrate patient was started on Levaquin patient is on dexamethasone, most likely patient is having slow recovery from COVID-19, patient also has history of rheumatoid arthritis and on methotrexate, patient was diagnosed 12 days ago, since patient was diagnosed with COVID-19, its too late now to start the patient on remdesivir will continue dexamethasone, levofloxcin and and monitor oxygen and fever and further recommendation to follow, I spoke with the patient's daughter and answered all her questions. today 10/07 patient has been fever free for 2 days now and only requiring 2 L of oxygen, however patient has history of anxiety and goes into panic attacks with tachypnea, patient after talking to her family, we have started the patient on Xanax 0.25 mg every 8 hours as needed, patient is liver enzymes are elevated most likely secondary to COVID-19 inflammation will order acute hepatitis pain and liver ultrasound, will continue to monitor, will continue to monitor if she remains clinically stable, possibly discharge patient home tomorrow will do the home O2 eval. (2) History of hypertension: Code(s): Z86.79 - Personal history of other diseases of the circulatory system Status: Inactive Assessment and Plan: Will continue home regimen and monitor (3) History of gastroesophageal reflux (GERD): Code(s): Z87.19 - Personal history of other diseases of the digestive system Status: Inactive Assessment and Plan: Will continue PPI (4) History of coronary artery disease: Code(s): Z86.79 - Personal history of other diseases of the circulatory system Status: Inactive Assessment and Plan: Patient is clinically stable no complaint of chest pain Subjective Date/time seen: 10/07/20 15:25 Renee Fernandez is a 74 year old female with a past medical history of coronary artery disease hypertension GERD patient was initially seen at an urgent care 12 days ago and was positive for COVID-19 patient was started on short course of steroid and azithromycin completed 5 day course, patient stated upon arrival, she felt more tired, short of breath and difficulty taking patient deep breath, presented emergency depart to further evaluate patient had a CTA of the chest is negative for pulmonary emboli but does show ground-glass appeared consistent with COVID-19, lower extremity Doppler was negative for DVT. Patient is started on dexamethasone, on 10/04 patient complained of fever and was requiring 2 L of oxygen patient was sta
[2020-10-07] MEDS: MELATONIN 5 MG TABLET PO (21:08)
[2020-10-07] MEDS: IRBESARTAN 150 MG TABLET 300 MG PO (21:08)
[2020-10-07] MEDS: ATORVASTATIN 10 MG TABLET PO (21:08)
[2020-10-08] VITALS (11 sets, daily range): BP systolic 100–112; BP diastolic 41–61; PULSE 55–69; RESP 16–22; TEMP 36.4–37.7; O2SAT 85–98
[2020-10-08 06:37] LABS: Basophils Percent Auto 0.2 % (0.2-1.2); Eosinophils Percent Auto 0.2 % (0-4.4); Hematocrit 30.9 % (37.0-47.0); Hemoglobin 10.6 g/dL (12.0-15.0); Immature Granulocyte Percent A 1.1 % (0-0.5); Lymphocytes Absolute Auto 0.86 K/mm3 (0.9-3.2); Lymphocytes Percent Auto 9.8 % (18.3-44.2); Mean Corpuscular HGB Conc 34.3 g/dl (32-36); Mean Corpuscular Hemoglobin 32.6 pg (26-34); Mean Corpuscular Volume 95.1 fl (80-100); Monocytes Absolute Auto 0.8 K/mm3 (0.1-0.6); Monocytes Percent Auto 8.7 % (2.6-8.5); Platelet Count Result 197 k/mm3 (150-375); Red Blood Count 3.25 M/mm3 (4.2-5.4); Red Cell Distribution Width 14.6 % (11.5-14.5); White Blood Count 8.8 K/mm3 (4.5-10.0)
[2020-10-08 06:55] LABS: Alanine Aminotransferase 148 U/L (4-35); Albumin Level 2.8 g/dL (3.5-5.1); Alkaline Phosphatase 135 U/L (38-126); Anion Gap 5 mmol/L (8-16); Aspartate Amino Transferase 83 U/L (14-36); Bilirubin,Total 0.9 mg/dL (0.2-1.3); Blood Urea Nitrogen 23 mg/dL (7-17); Calcium 8.6 mg/dL (8.4-10.2); Carbon Dioxide 29 mmol/L (22-30); Chloride 103 mmol/L (98-107); Estimated CRCL calculation 57 ml/min; Estimated Glomerular Filt Rate > 60; Glucose 79 mg/dL (65-105); Potassium 3.9 mmol/L (3.4-5.0); Sodium 137 mmol/L (137-145)
[2020-10-08 07:03] LABS: CRP 12.5 mg/dL (<1.0)
[2020-10-08 07:53] LABS: Hepatitis B Surface Antigen Negative (Negative)
[2020-10-08 07:59] LABS: HAV RESULT Negative (Negative); Hepatitis B Core IgM Result Negative (Negative)
[2020-10-08 08:10] LABS: Hepatitis C Virus Antibody Negative (Negative)
[2020-10-08] MEDS: FOLIC ACID 1 MG TABLET PO (08:55)
[2020-10-08] MEDS: ENOXAPARIN 40 MG/0.4 ML SYRINGE SUB-Q (08:55)
[2020-10-08] MEDS: DEXAMETHASONE SOD PHOS INJ 4 MG/ML VIAL 6 MG IV PUSH (08:55)
[2020-10-08] MEDS: MONTELUKAST SODIUM 10 MG TABLET PO (08:56)
[2020-10-08] MEDS: guaiFENesin/DEXTROMETHORPHAN 10 ML UDC PO (08:56)
[2020-10-08] MEDS: PANTOPRAZOLE 40 MG TABLET PO (08:56)
[2020-10-08] MEDS: PARoxetine 20 MG TABLET 40 MG PO (08:56)
--- NOTE | 2020-10-08 13:06 | HOMEO2EVAL ---
Home Oxygen Evaluation RC: Home Oxygen (O2) Evaluation Start: 10/08/20 08:23 Freq: ONCE Status: Active Protocol: RPE Activity Type Activity Date Activity User E-Sign Co-Sign Detail Recorded Client Recorded Date Recorded By Document 10/08/20 11:00 [email or web address] 10/08/20 13:06 HARVEY Document 10/08/20 11:03 [email or web address] [email or web address] 10/08/20 13:06 HARVEY Document 10/08/20 11:05 [email or web address] [email or web address] 10/08/20 13:06 HARVEY Document 10/08/20 11:07 [email or web address] [email or web address] 10/08/20 13:06 HARVEY Document 10/08/20 11:09 [email or web address] [email or web address] 10/08/20 13:06 HARVEY Document 10/08/20 11:11 [email or web address] [email or web address] 10/08/20 13:06 HARVEY Document 10/08/20 11:15 [email or web address] [email or web address] 10/08/20 13:06 HARVEY 10/08/20 10/08/20 10/08/20 11:00 11:03 11:05 Home O2 Evaluation Test Phase Resting Resting Resting Oxygen Delivery Room Air High Flow Nasal High Flow Nasal Cannula Cannula Oxygen Flow Rate (L/min) 2 3 Pulse Oximetry (90-100 %) 85 L 86 L 90 Home Oxygen Evaluation Comments 10/08/20 10/08/20 10/08/20 11:07 11:09 11:11 Home O2 Evaluation Test Phase Exercise Exercise Exercise Oxygen Delivery High Flow Nasal High Flow Nasal High Flow Nasal Cannula Cannula Cannula Oxygen Flow Rate (L/min) 3 4 5 Pulse Oximetry (90-100 %) 87 L 87 L 90 Home Oxygen Evaluation Comments 10/08/20 11:15 Home O2 Evaluation Test Phase Resting Oxygen Delivery High Flow Nasal Cannula Oxygen Flow Rate (L/min) 3 Pulse Oximetry (90-100 %) Home Oxygen Evaluation Comments PT REQUIRES 3 L REST AND 5L WITH EXERTION
--- NOTE | 2020-10-08 14:01 | PM.DS ---
DS: Admitting Diagnosis Admitting Diagnosis Admitting Diagnosis: COVID Pneumonia, Acute resp failure with hypoxia DS: Discharge Diagnosis Discharge Diagnosis (1) Pneumonia due to COVID-19 virus: Code(s): U07.1 - COVID-19; J12.89 - Other viral pneumonia Status: Acute Assessment and Plan: 10/07/20 15:25 Renee Fernandez is a 74 year old female with a past medical history of coronary artery disease hypertension GERD patient was initially seen at an urgent care 12 days ago and was positive for COVID-19 patient was started on short course of steroid and azithromycin completed 5 day course, patient stated upon arrival, she felt more tired, short of breath and difficulty taking patient deep breath, presented emergency depart to further evaluate patient had a CTA of the chest is negative for pulmonary emboli but does show ground-glass appeared consistent with COVID-19, lower extremity Doppler was negative for DVT. Patient is started on dexamethasone, on 10/04 patient complained of fever and was requiring 2 L of oxygen patient was started on azithromycin and Rocephin for possible secondary bacterial pneumonia, apparently patient developed rash and itchiness upon receiving Rocephin patient was given Benadryl, stopped Rocephin this morning patient still states feeling tired shortness of breath, denies any fever or chills. Patient still complains of fever and shortness of breath, is states was not able to sleep, patient has a low-grade intermittent fever is only requiring 2 L of oxygen, repeat x-ray 10/05 showed infiltrate patient was started on Levaquin patient is on dexamethasone, most likely patient is having slow recovery from COVID-19, patient also has history of rheumatoid arthritis and on methotrexate, patient was diagnosed 12 days ago, since patient was diagnosed with COVID-19, its too late now to start the patient on remdesivir will continue dexamethasone, levofloxcin and and monitor oxygen and fever and further recommendation to follow, I spoke with the patient's daughter and answered all her questions. today 10/07 patient has been fever free for 2 days now and only requiring 2 L of oxygen, however patient has history of anxiety and goes into panic attacks with tachypnea, patient after talking to her family, we have started the patient on Xanax 0.25 mg every 8 hours as needed, patient is liver enzymes are elevated most likely secondary to COVID-19 inflammation will order acute hepatitis pain and liver ultrasound, will continue to monitor, will continue to monitor if she remains clinically stable, possibly discharge patient home tomorrow will do the home O2 eval. (2) History of hypertension: Code(s): Z86.79 - Personal history of other diseases of the circulatory system Status: Inactive Assessment and Plan: Will continue home regimen and monitor (3) History of gastroesophageal reflux (GERD): Code(s): Z87.19 - Personal history of other diseases of the digestive system Status: Inactive Assessment and Plan: Will continue PPI (4) History of coronary artery disease: Code(s): Z86.79 - Personal history of other diseases of the circulatory system Status: Inactive Assessment and Plan: Patient is clinically stable no complaint of chest pain DS: Summary Hospital Course Reason for hospitalization: Chief complaint: COVID Pneumonia, Acute resp failure with hypoxia Narrative: Renee Fernandez is a 74 year old female with a past medical history of coronary artery disease hypertension GERD patient was initially seen at an urgent care 8 days ago and was positive for COVID-19 patient was started on short course of steroid and azithromycin completed 5 day course, patient states today she felt more tired short of breath and difficulty taking patient deep breath, presented emergency depart to further evaluate patient had a CTA of the chest is negative for pulmonary emboli but does show ground-glass
--- NOTE | 2020-10-08 14:38 | HOMEO2EVAL ---
Home Oxygen Evaluation RC: Home Oxygen (O2) Evaluation Start: 10/08/20 08:23 Freq: ONCE Status: Active Protocol: RPE Activity Type Activity Date Activity User E-Sign Co-Sign Detail Recorded Client Recorded Date Recorded By Document 10/08/20 11:00 [email or web address] [email or web address] 10/08/20 13:06 AHRVEY Document 10/08/20 11:03 [email or web address] [email or web address] 10/08/20 13:06 HARVEY Document 10/08/20 11:05 [email or web address] [email or web address] 10/08/20 13:06 HARVEY Document 10/08/20 11:07 [email or web address] [email or web address] 10/08/20 13:06 HARVEY Document 10/08/20 11:09 [email or web address] [email or web address] 10/08/20 13:06 HARVEY Document 10/08/20 11:11 [email or web address] [email or web address] 10/08/20 13:06 HARVEY Document 10/08/20 11:15 [email or web address] [email or web address] 10/08/20 13:06 HARVEY 10/08/20 10/08/20 10/08/20 11:00 11:03 11:05 Home O2 Evaluation Test Phase Resting Resting Resting Oxygen Delivery Room Air High Flow Nasal High Flow Nasal Cannula Cannula Oxygen Flow Rate (L/min) 2 3 Pulse Oximetry (90-100 %) 85 L 86 L 90 Home Oxygen Evaluation Comments 10/08/20 10/08/20 10/08/20 11:07 11:09 11:11 Home O2 Evaluation Test Phase Exercise Exercise Exercise Oxygen Delivery High Flow Nasal High Flow Nasal High Flow Nasal Cannula Cannula Cannula Oxygen Flow Rate (L/min) 3 4 5 Pulse Oximetry (90-100 %) 87 L 87 L 90 Home Oxygen Evaluation Comments 10/08/20 11:15 Home O2 Evaluation Test Phase Resting Oxygen Delivery High Flow Nasal Cannula Oxygen Flow Rate (L/min) 3 Pulse Oximetry (90-100 %) Home Oxygen Evaluation Comments PT REQUIRES 3 L REST AND 5L WITH EXERTION
--- NOTE | 2020-10-08 14:38 | PCRCNOTE ---
HOME O2 EVAL DONE, PT NEEDS 3 AT REST AND 5 WITH ACTIVITY. TANK IN ROOM AND READY FOR DISCHARGE. DME AWARE PT IS STAYING WITH DAUGHTER IN [place] AND THEY HAVE ADDRESS.
== END 2020-10-08 17:30 | disposition home or self-care (01) | DRG 177 ==
LOC: ANHED 15:12 → ANH3MEDSUR 15:12
PROVIDERS: Physician Assistant; Admitting Provider Family Medicine; Emergency Provider Emergency Medicine; PCP Nurse Practitioner Adult Health; Visit Provider Family Medicine
DX: U07.1 COVID-19 (principal); J96.01 Acute respiratory failure with hypoxia; J12.89 Other viral pneumonia; I10 Essential (primary) hypertension; I25.10 Atherosclerotic heart disease of native coronary artery without angina pectoris; E78.5 Hyperlipidemia, unspecified; K21.9 Gastro-esophageal reflux disease without esophagitis; M06.9 Rheumatoid arthritis, unspecified; F41.0 Panic disorder [episodic paroxysmal anxiety]; R74.8 Abnormal levels of other serum enzymes; Z79.899 Other long term (current) drug therapy
CPT/HCPCS: 36415; 36600; 71045; 71275; 76705; 80048; 80053; 80074; 80076; 81001; 82375; 82728; 82805; 83050; 83605; 83615; 83880; 85025; 85380; 85610; 85730; 86140; 93005; 93970; 96374; 97161; 97165; 99285; A9270; J0456; J0696; J1100; J1200; J1650; J1956; J2405; J7040; Q9967

== ENCOUNTER 2020-11-01 12:43 | Outpatient (CLI) | payer MEDICARE, BC, SELFPAY ==
--- NOTE | 2020-11-01 | ECHO_ITS ---
Patient Info Name: Renee Fernandez Age: 75 years : 1945 Gender: Female Ht: 65 in Wt: 185 lbs BSA: 1.99 m2 HR: 65 bpm BP: 138 / 58 mmHg Heart Rhythm: Sinus Rhythm Technical Quality: Fair Exam Date: 11/01/2020 1:03 PM Exam Location: [facility] Patient Status: Outpatient Admit Date: 11/01/2020 Staff Ordering Physician: FabianoMarti NP Lan Analyst: Marian Madera RDCS Attending Provider: BerryMarti NP Exam Type: CA echo doppler color flow Study Info Indications U07.1 - COVID 19 Complete two-dimensional, color flow and Doppler transthoracic echocardiogram is performed. Summary 1. Complete two-dimensional, color flow and Doppler transthoracic echocardiogram is performed. 2. Normal left and right ventricular systolic function. 3. Moderate left atrial enlargement. 4. Small amount of mitral and tricuspid regurgitation. 5. Enlarged right ventricle. Left Ventricle Left ventricular chamber dimension is normal. Left ventricular systolic function is normal, estimated at 60-65%. The left ventricular diastolic function is grade I diastolic dysfunction. Right Ventricle Right ventricular chamber dimension is mildly enlarged. Left Atria Left atrial chamber dimension is moderately enlarged. Right Atria Right atrial chamber dimension is normal. Aortic Valve The aortic valve is trileaflet. There is mild aortic valve sclerosis. Pulmonic Valve The pulmonic valve is normal. Mitral Valve The mitral valve has normal leaflets. There is trace mitral valve regurgitation. Tricuspid Valve The tricuspid valve leaflets are normal. Pericardium/Pleural The pericardium appears normal. Aorta The aortic root size at the sinus of Valsalva is normal. Left Ventricular Outflow Tract Name Value Normal LVOT 2D LVOT Diameter 2.0 cm LVOT Doppler LVOT Peak Gradient 7 mmHg LVOT Mean Gradient 4 mmHg LVOT VTI 29 cm LVOT VTI/AV VTI Ratio 0.8 LVOT Stroke Volume 90 ml LVOT CO 5.7 l/min LVOT CI 2.9 l/min/m2 Pulmonic Valve Name Value Normal RVOT Doppler RVOT Peak Gradient 2 mmHg PV Doppler PV Peak Gradient 3 mmHg Mitral Valve Name Value Normal MV Doppler MV Decel Freestone 624 cm/s2 MV PHT 38 ms
--- NOTE | ~2020-11-01 | US_ITS ---
EXAMINATION: US venous doppler [facility] DATE: 11/01/2020 14:11 INDICATION: Left lower limb pain TECHNIQUE: Paris scale images without and with compression and Doppler images of the left lower extrem ity veins were obtained. COMPARISON: 10/03/2020 FINDINGS: The left common femoral vein, profunda femoral vein, femoral vein, popliteal vein, peroneal trunk, posterior tibial veins, and greater saphenous vein are patent. IMPRESSION: 1. Patent left lower extremity veins. No evidence of deep venous thrombosis. Reviewed, dictated and finalized at location A. SCOPIC ENGINEERING TECHNICIAN
--- NOTE | ~2020-11-01 | CT_ITS ---
EXAMINATION: CTA chest PE protocol DATE: 11/01/2020 14:50 INDICATION: Shortness of breath, recovery from COVID 19 TECHNIQUE: Computed tomography angiography (CTA) of the chest was performed with 100 mL Omnipaque-350 intravenous contrast timed to evaluate the pulmonary arteries. Coronal maximum intensity projection 3D-reconstructions were created by the technologist. The dose-length product (DLP) was 344.83 mGy-cm. Automated exposure control and iterative reconstruction technique were employed. COMPARISON: 10/03/2020 FINDINGS: The pulmonary arteries are well-opacified. No pulmonary embolism is identified. Patchy grou ndglass opacities are present which demonstrate interval improvement compared to the prior CT, consis tent with resolving COVID 19 pneumonia. No new superimposed airspace opacities are identified. There is no pleural effusion or pneumothorax. The heart size is normal. There is improved right hilar lymph adenopathy, likely reactive. Calcified coronary artery atherosclerosis is noted. Punctate calcificati ons in an otherwise normal spleen likely represent healed granulomatous disease. The gallbladder is s urgically absent. There is mild enlargement of the common bile duct and central intrahepatic ducts wh ich is likely due to post cholecystectomy state. There is a 1.6 cm cyst of the liver. There is mild t horacic spondylosis. IMPRESSION: 1. No pulmonary embolism or acute cardiopulmonary abnormality. 2. Findings consistent with resolving COVID 19 pneumonia. Reviewed, dictated and finalized at location A. RANS REHABILITATION COUNSELOR
== END 2020-11-01 12:44 | disposition home or self-care (01) ==
LOC: ANHCARD 12:44
PROVIDERS: PCP Nurse Practitioner Adult Health; Visit Provider Nurse Practitioner Adult Health
DX: U07.1 COVID-19 (principal); R06.02 Shortness of breath; I51.7 Cardiomegaly
CPT/HCPCS: 71275; 93306; 93971; Q9967

== ENCOUNTER 2020-11-19 12:34 | Outpatient (CLI) | payer MEDICARE, BC, SELFPAY ==
--- NOTE | 2020-11-20 14:03 | WPDSIXMINUTE ---
Six Minute Walk This is a 6 minutes walk for exertional dyspnea. Findings: The patient's resting room air oxygen saturation measured by pulse oximetry was 97% and her heart rate was 59 bpm. Patient ambulated for 365.7 meters and oxygen saturation remained 89 to 95%. Heart rate at the end of the study was 71 bpm. There are no prior studies for comparison.
--- NOTE | 2020-11-20 14:06 | P.PCNPFT_ITS ---
PFT Interpretation This is a pulmonary function test with pre and post-bronchodilator spirometry, plethysmography and diffusing capacity. The test was performed and results interpreted in accordance with the 2019 and 2005 ATS/ERS Task Force guidelines respectively using the Félix/Isauro reference equations. Findings: Spirometry: The contour of the inspiratory and expiratory flow tracing are normal. The pre-bronchodilator FVC is 4.63 L, 94% predicted. The pre- bronchodilator FEV1 is 3.38 L, 89% predicted. The FEV1:FVC ratio is 73%. The post bronchodilator FVC is 4.71 L, representing a 2% increase. The post bronchodilator FEV1 is 3.53 L, representing a 4% increase. Plethysmography: The total lung capacity is 5.21 L, 80% predicted. The functional residual capacity is 2.23 L, 65% predicted. The residual volume is 0.59 L, 32% predicted Diffusing capacity: The absolute diffusing capacity is 26.1, 93% predicted. The diffusing capacity corrected for alveolar volume is 4.85, 110% predicted. Impression: The spirometry is normal without evidence of an obstructive abnormality. There is no significant improvement after inhaling a single dose of albuterol. There is a reduction in the residual volume and functional residual capacity with a normal total lung capacity. This is an abnormal but nonspecific lung volume pattern. The diffusing capacity is normal. There are no prior studies for comparison
--- NOTE | 2020-11-20 14:10 | PFT_ITS ---
The below report was completed in error on this patient and should be disregarded. PFT Interpretation This is a pulmonary function test with pre and post-bronchodilator spirometry, plethysmography and diffusing capacity. The test was performed and results interpreted in accordance with the 2019 and 2005 ATS/ERS Task Force guidelines respectively using the Félix/Polkoeb reference equations. Findings: Spirometry: The contour of the inspiratory and expiratory flow tracing are normal. The pre-bronchodilator FVC is 4.63 L, 94% predicted. The pre- bronchodilator FEV1 is 3.38 L, 89% predicted. The FEV1:FVC ratio is 73%. The post bronchodilator FVC is 4.71 L, representing a 2% increase. The post bronchodilator FEV1 is 3.53 L, representing a 4% increase. Plethysmography: The total lung capacity is 5.21 L, 80% predicted. The functional residual capacity is 2.23 L, 65% predicted. The residual volume is 0.59 L, 32% predicted Diffusing capacity: The absolute diffusing capacity is 26.1, 93% predicted. The diffusing capacity corrected for alveolar volume is 4.85, 110% predicted. Impression: The spirometry is normal without evidence of an obstructive abnormality. There is no significant improvement after inhaling a single dose of albuterol. There is a reduction in the residual volume and functional residual capacity with a normal total lung capacity. This is an abnormal but nonspecific lung volume pattern. The diffusing capacity is normal. There are no prior studies for comparison Report Initialized date/time: José Ann MD 11/20/20 / 0 Electronically signed by: José Ann MD 11/20/20 141 [facility]
== END 2020-11-19 12:35 | disposition home or self-care (01) ==
PROVIDERS: PCP Nurse Practitioner Adult Health; Visit Provider Nurse Practitioner Adult Health
DX: Z99.81 Dependence on supplemental oxygen (principal)
CPT/HCPCS: 94618

== ENCOUNTER 2021-02-18 08:52 | Outpatient (CLI) | payer MEDICARE, BC, SELFPAY ==
--- NOTE | ~2021-02-18 | CT_ITS ---
EXAMINATION: CT diagnostic chest wo con EXAM DATE: 02/18/2021 09:14 INDICATION: Dyspnea. Shortness of breath since COVID in September 2020. Cough. History of skin cancer. TECHNIQUE: Spiral CT of the chest without contrast. Axial, coronal and sagittal images were reviewe d. Coronal maximum intensity pixel images of chest reviewed. The dose-length product (DLP) for this examination was 210.59 mGy-cm. The exposure was tailored according to patient size (auto mA exposur e control), and iterative reconstruction (ASIR) was used as additional dose reduction technique. Comp arison is made to prior examination from 11/01/2020. FINDINGS: Resolution of previously seen COVID pneumonia. There is mild bronchiectasis and emphysema. There are several right upper lobe nodules measuring up to 3 mm in size unchanged, noncalcified gran ulomata. Trace pericardial effusion. Tracheobronchial tree is patent. There is no mediastinal, hil ar or axillary lymphadenopathy. There is no pneumothorax. Heart normal in size. There is modera te coronary arterial calcification, arterial sclerosis. There is small sliding gastroesophageal hiata l hernia. 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 There is mild thoracic spondylosis without osteoblastic or osteolytic lesions identified. IMPRESSION: 1. 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 2. Resolution of previously seen COVID pneumonia. 3. Mild emphysema and bronchiectasis. Reviewed, dictated and finalized at location A. IMPRESSION: 1. Splenic artery 2.2 cm saccular aneurysm, large enough to consider prophylac tic treatment. 2. Resolution of previously seen COVID pneumonia. 3. Mild emphysema and bronchiectasis.
== END 2021-02-18 08:53 | disposition home or self-care (01) ==
PROVIDERS: PCP Nurse Practitioner Adult Health; Visit Provider Nurse Practitioner Adult Health
DX: R06.00 Dyspnea, unspecified (principal); I72.8 Aneurysm of other specified arteries; J43.9 Emphysema, unspecified; J47.9 Bronchiectasis, uncomplicated; Z86.16 Personal history of COVID-19
CPT/HCPCS: 71250

== ENCOUNTER 2021-05-24 16:56 | Emergency (ER) | payer MEDICARE, BC, SELFPAY ==
--- NOTE | ~2021-05-24 | CT_ITS ---
EXAMINATION: CT abdomen pelvis w con EXAM DATE: 05/24/2021 19:12 INDICATION: Abdominal pain. Bilateral lower abdominal pain, cramping. Generalized weakness, dry heavi ng. Known aneurysm. TECHNIQUE: Spiral CT of the abdomen and pelvis was performed following intravenous injection of 100 m L Omnipaque 350. Axial, coronal and sagittal images of the abdomen and pelvis were reviewed. The do se-length product (DLP) for this examination was 932.63 mGy-cm. The exposure was tailored according to patient size (auto mA exposure control), and iterative reconstruction (ASIR) was used as additiona l dose reduction technique. Correlation is made to pulmonary CT 11/01/2020. FINDINGS: There is a 2.0 cm splenic artery aneurysm, does not appear changed compared to a pulmonary CT from last year. The liver, spleen, adrenal glands and pancreas are unremarkable. There are cholec ystectomy clips. Portal and splenic veins are patent. Kidneys enhance symmetrically. There is no h ydronephrosis. There is a punctate 2 mm left inferior calyceal stone. The uterus is unremarkable. The bladder is undistended at time of imaging. There is no retroperitoneal or pelvic lymphadenopathy . There is mild scattered arteriosclerotic disease. There are no findings to suggest appendicitis. Moderate sigmoid diverticulosis and possible mild unco mplicated diverticulitis. There is small sliding gastroesophageal hiatal hernia. There is expected a mount of colonic stool. No free intraperitoneal gas. The heart is normal in size. There are no p ericardial or pleural effusions. The lung bases are unremarkable. There are no osteoblastic or oste olytic lesions identified. IMPRESSION: 1. Moderate sigmoid diverticulosis with possible acute uncomplicated diverticulitis.. 2. Stable 2 cm splenic artery aneurysm. 3. Small hiatal hernia. 4. Punctate left nephrolithiasis. Reviewed, dictated and finalized at location A. IMPRESSION: 1. Moderate sigmoid diverticulosis with possible acute uncomplicated diverticu litis.. 2. Stable 2 cm splenic artery aneurysm. 3. Small hiatal hernia. 4. Punctate left nephrolithiasis.
[2021-05-24 17:07] VITALS: BP 124/69; PULSE 69; RESP 18; TEMP 36.4; O2SAT 96
--- NOTE | 2021-05-24 17:30 | ED.GENADULT ---
HPI - General Adult General Chief complaint: Abdominal Pain Stated complaint: abd pain Time Seen by Provider: 05/24/21 17:25 Source: patient History of Present Illness HPI narrative: Patient is a 75 y/o female complaining of intermittent lower abdominal pain for several months. She describes her pain as sharp and rates it as 8/10. She states that having a BM sometimes helps with her abdominal pain. She has no vomiting, diarrhea or dysuria. She states that her pain was so severe early today that she felt like she could not drive. She had to call her daughter for help. Related Data Home Medications Medication Instructions Recorded Confirmed alprazolam [Xanax] 0.25 mg PO DAILY PRN 10/03/20 10/03/20 atorvastatin 10 mg PO DAILY 10/03/20 10/03/20 esomeprazole magnesium 40 mg PO DAILY 10/03/20 10/03/20 folic acid 1 mg PO DAILY 10/03/20 10/03/20 irbesartan 300 mg PO DAILY 10/03/20 10/03/20 montelukast 10 mg PO DAILY 10/03/20 10/03/20 oxybutynin chloride 5 mg PO DAILY 10/03/20 10/03/20 paroxetine HCl 40 mg PO DAILY 10/03/20 10/03/20 aspirin 81 mg tablet,delayed 81 mg PO DAILY 11/22/20 release biotin 10,000 mcg capsule mcg PO 11/22/20 loratadine 10 mg tablet 10 mg PO DAILY 11/22/20 Allergies Allergy/AdvReac Type Severity Reaction Status Date / Time latex Allergy Severe REDNESS,BLISTERS, Verified 05/24/21 17:38 RASH ceftriaxone [From Rocephin] Allergy Intermediate Itching Verified 05/24/21 17:38 bacitracin Allergy Unknown RASH, Verified 05/24/21 17:38 REDNESS codeine Allergy Unknown THROAT Verified 05/24/21 17:38 SWEELING polymyxin B Allergy Unknown RASH, Verified 05/24/21 17:38 REDNESS buspirone AdvReac Mild STOMACH Verified 05/24/21 17:38 UPSET rofecoxib AdvReac Mild NAUSEA Verified 05/24/21 17:38 celecoxib AdvReac Unknown NAUSEA Verified 05/24/21 17:38 gabapentin AdvReac Unknown Verified 05/24/21 17:38 Review of Systems Constitutional: Constitutional: Denies chills, Denies fever(s), Denies headache(s) and Denies weakness Eyes: Eyes: Denies blurry vision ENT: Denies headache(s) and Denies neck pain Cardiovascular: Cardiovascular: Denies chest pain and Denies dyspnea Respiratory: Respiratory: Denies cough and Denies dyspnea Gastrointestinal: Gastrointestinal: Reports abdominal pain, Denies diarrhea, Denies nausea and Denies vomiting Genitourinary: Genitourinary: Denies hematuria and Denies dysuria Musculoskeletal: Musculoskeletal: Denies back pain and Denies neck pain Neurologic: Denies headache(s) and Denies weakness PMFSH Past Medical History Medical History History of coronary artery disease History of gastroesophageal reflux (GERD) History of hyperlipidemia History of hypertension Family History Family History Father Lung cancer Mother Alzheimer disease Social History Social History Smoking status: Never smoker Alcohol intake: current Drinks per week: 1 Substance use: never Gender identity (if verbalized by the patient): Female Spiritual care concerns: No Exam Const: General: no acute distress and well developed Orientation/consciousness: oriented to person, oriented to place, oriented to time and patient oriented x3 HENMT: Head: normocephalic Ears: external ears normal General nose exam: Normal external nose present Eyes: General: appearance normal, both eyes and all related structures Conjunctivae: conjunctivae normal Neck: Neck: normal visual inspection and full ROM Chest: Chest palpation & inspection: normal inspection of the chest and no tenderness Resp: Effort & Inspection: normal respiratory effort Auscultation: clear to auscultation bilaterally Cardio: Rate: regular rate Rhythm: regular rhythm GI: GI Palp: No abdominal tenderness and Yes Soft to palpation Skin: General skin exam
[2021-05-24 17:32] VITALS: BP 138/61; PULSE 73; RESP 22; TEMP 37; O2SAT 100
[2021-05-24 18:05] LABS: Hematocrit 41.9 % (37.0-47.0); Hemoglobin 13.4 g/dL (12.0-15.0); Immature Platelet Fraction Pct 8.6 % (0.9-11.2); Mean Corpuscular Hemoglobin 31.6 pg (26-34); Mean Corpuscular Volume 98.8 fl (80-100); Mean Platelet Volume 11.3 fl (7.4-10.4); Platelet Count Result 128 k/mm3 (150-375); Red Blood Count 4.24 M/mm3 (4.2-5.4); White Blood Count 13.1 K/mm3 (4.5-10.0)
[2021-05-24] MEDS: DICYCLOMINE HCL INJ 20 MG/2 ML VIAL IM (18:13)
[2021-05-24 18:24] LABS: Alanine Aminotransferase 18 U/L (4-35); Albumin Level 4.2 g/dL (3.5-5.1); Alkaline Phosphatase 117 U/L (38-126); Anion Gap 6 mmol/L (8-16); Aspartate Amino Transferase 37 U/L (14-36); Blood Urea Nitrogen 22 mg/dL (7-17); Calcium 9.5 mg/dL (8.4-10.2); Carbon Dioxide 23 mmol/L (22-30); Chloride 108 mmol/L (98-107); Estimated CRCL calculation 47 ml/min; Estimated Glomerular Filt Rate 54; Glucose 150 mg/dL (65-105); Lipase 202 U/L (23-300); Potassium 4.7 mmol/L (3.4-5.0); Sodium 137 mmol/L (137-145)
[2021-05-24 18:35] LABS: Band Neutrophils Percent 3 % (0-6); Lymphocytes Absolute Manual 0.91 K/mm3 (1.1-4.5); Monocytes Absolute Manual 0.65 K/mm3 (0.1-0.90); Monocytes Percent Manual 5 % (3-9); Neutrophils Absolute Manual 11.52 K/mm3 (1.7-7.2); Neutrophils Percent Manual 85 % (46-73); Total Cells Counted 100
[2021-05-24 18:36] LABS: Platelet Estimate Decreased (Adequate)
[2021-05-24 18:56] LABS: Add Urine Microscopic? YES; Amorphous Sediment Urine Moderate; Appearance Urine Cloudy (Clear); Bacteria Urine 3+ /hpf; Bilirubin Urine 1+ (Negative); Blood Urine 1+ (Negative); Color Urine Amber (Yellow); Glucose Urine UA Negative (Negative); Ketones Urine Trace mg/dL (Negative); Leukocyte Esterase Ur 1+ LEU/UL (Negative); Mucus Urine Rare /lpf; Nitrate Urine Negative (Negative); Protein Urine 2+ mg/dL (Negative); Squamous Epithelial Cell Urine Occasional /hpf (Few); WBC Urine 16-20 /hpf
[2021-05-24 19:16] VITALS: BP 142/57; PULSE 81; RESP 19; O2SAT 100
[2021-05-24 21:28] VITALS: BP 144/65; PULSE 70; RESP 20; TEMP 36.7; O2SAT 100
== END 2021-05-24 21:29 | disposition home or self-care (01) ==
PROVIDERS: Emergency Provider Emergency Medicine; PCP Nurse Practitioner Adult Health
DX: N39.0 Urinary tract infection, site not specified (principal); K57.92 Diverticulitis of intestine, part unspecified, without perforation or abscess without bleeding; I25.10 Atherosclerotic heart disease of native coronary artery without angina pectoris; K21.9 Gastro-esophageal reflux disease without esophagitis; E78.5 Hyperlipidemia, unspecified; I10 Essential (primary) hypertension
CPT/HCPCS: 36415; 51701; 74177; 80053; 81001; 83690; 85025; 85055; 87077; 87086; 87088; 87186; 96372; 99284; J0500; Q9967

== ENCOUNTER 2021-06-13 09:22 | Outpatient (CLI) | payer MEDICARE, BC, SELFPAY ==
--- NOTE | ~2021-06-13 | US_ITS ---
EXAMINATION: US thyroid DATE: 06/13/2021 10:04 INDICATION: Abnormal thyroid function tests. Hypothyroidism. TECHNIQUE: Multiple ultrasound images of the thyroid were obtained. COMPARISON: None. FINDINGS: The right thyroid lobe measures 4.7 x 1.5 x 1.6 cm. The left thyroid lobe measures 4.4 x 1.7 x 1.3 c m. In the right thyroid lobe, there is a 5 mm almost completely cystic nodule (TI-RADS TR1). IMPRESSION: 1. Small thyroid nodule, likely not clinically significant. No follow-up is needed. Reviewed, dictated and finalized at location A. IMPRESSION: 1. Small thyroid nodule, likely not clinically significant. No follow-up is nee ded.
== END 2021-06-13 09:23 | disposition home or self-care (01) ==
PROVIDERS: PCP Nurse Practitioner Adult Health; Visit Provider Nurse Practitioner Adult Health
DX: R94.6 Abnormal results of thyroid function studies (principal); E04.1 Nontoxic single thyroid nodule
CPT/HCPCS: 76536

== ENCOUNTER 2021-08-27 17:56 | Emergency (ER) | payer MEDICARE, BC, SELFPAY ==
[2021-08-27] VITALS (17 sets, daily range): BP systolic 105–160; BP diastolic 50–100; PULSE 74–85; RESP 18–26; TEMP 37.4–37.8; O2SAT 91–100
--- NOTE | ~2021-08-27 | CT_ITS ---
EXAMINATION: CTA chest PE abdomen pel DATE: 08/28/2021 11:36 CDT INDICATION: Chest and back pain. Elevated d-dimer. TECHNIQUE: Computed tomographic angiography (CTA) of the chest was performed with 100 mL Omnipaque-35 0 intravenous contrast. The dose-length product was 1307.29 mGy-cm. Maximum intensity projection 3D-r econstructions of the aorta and other arteries were constructed by the technologist on a separate wor kstation. Automated exposure control and iterative reconstruction technique were employed. COMPARISON: CT dated 05/24/2021. FINDINGS: Study is technically adequate without evidence for pulmonary embolism. No evidence for thor acic aortic aneurysm or dissection. Cardiomegaly. There is atherosclerosis. No significant pleural or pericardial effusion. Mildly enlarged right hilar lymph node measures 12 mm, likely reactive. Small hiatal hernia. Bibasilar dependent atelectasis. No focal airspace consolidation. IMPRESSION: 1. No evidence for pulmonary embolism. No acute cardiopulmonary disease. Reviewed, dictated and finalized at location A.
--- NOTE | ~2021-08-27 | XR_ITS ---
EXAMINATION: XR chest 2V DATE: 08/27/2021 19:01 INDICATION: Fever and chills. Chest pain. TECHNIQUE: Frontal and lateral views of the chest were obtained. COMPARISON: Chest single view 10/08/2020 FINDINGS: There is chronic elevation of right hemidiaphragm. No pneumonia, pleural effusion, or pneum othorax. The heart size is normal. There are old healed right rib fractures. Again seen is a 1.9 cm r im calcified saccular aneurysm of splenic artery. IMPRESSION: 1. No acute cardiopulmonary disease. Reviewed, dictated and finalized at location A.
--- NOTE | 2021-08-27 18:13 | ECG_ITS ---
Measurements Intervals [place] Rate: 83 P: 59 KS: 140 QRS: 21 QRSD: 94 T: 45 QT: 360 QTc: 425 Interpretive Statements SINUS RHYTHM POSSIBLE LEFT ATRIAL ENLARGEMENT INCOMPLETE RIGHT BUNDLE BRANCH BLOCK BASELINE ARTIFACT- I, II, III, AVR, AVL, AVF, V3-V6 BORDERLINE ECG Electronically Signed On 08-28-2021 6:29:09 CDT by Alex Garber D.O.
[2021-08-27 18:55] LABS: Basophils Absolute Auto 0.1 K/mm3 (0.0-0.1); Basophils Percent Auto 0.6 % (0.2-1.2); Eosinophils Absolute Auto 0.1 K/mm3 (0-0.3); Eosinophils Percent Auto 1.1 % (0-4.4); Hematocrit 37.1 % (37.0-47.0); Hemoglobin 12.5 g/dL (12.0-15.0); Immature Granulocyte Absolute 0.05 K/mm3 (0.00-0.031); Immature Granulocyte Percent A 0.6 % (0-0.5); Lymphocytes Absolute Auto 0.32 K/mm3 (0.9-3.2); Lymphocytes Percent Auto 3.6 % (18.3-44.2); Mean Corpuscular HGB Conc 33.7 g/dl (32-36); Mean Corpuscular Hemoglobin 33.2 pg (26-34); Mean Corpuscular Volume 98.4 fl (80-100); Mean Platelet Volume 11.1 fl (7.4-10.4); Monocytes Absolute Auto 0.8 K/mm3 (0.1-0.6); Monocytes Percent Auto 8.5 % (2.6-8.5); Neutrophils Absolute Auto 7.6 K/mm3 (1.3-6.7); Neutrophils Percent Auto 85.6 % (45.5-73.1); Platelet Count Result 164 k/mm3 (150-375); Red Blood Count 3.77 M/mm3 (4.2-5.4); White Blood Count 8.9 K/mm3 (4.5-10.0)
[2021-08-27 19:06] LABS: INR 0.9
[2021-08-27 19:09] LABS: Anion Gap 7 mmol/L (8-16); Blood Urea Nitrogen 21 mg/dL (7-17); Calcium 9.6 mg/dL (8.4-10.2); Carbon Dioxide 30 mmol/L (22-30); Chloride 102 mmol/L (98-107); Estimated CRCL calculation 49 ml/min; Estimated Glomerular Filt Rate 54; Glucose 110 mg/dL (65-110); Potassium 4.7 mmol/L (3.4-5.0); Sodium 139 mmol/L (137-145)
[2021-08-27 19:13] LABS: Prothrombin Time 12.2 Seconds (11.1-14.7)
--- NOTE | 2021-08-27 19:17 | PC.NURSE ---
Report received from AARON Chavez. Assumed care of patient at this time.
[2021-08-27 19:20] LABS: Troponin I < 0.012 ng/mL (0.000-0.034)
[2021-08-27] MEDS: ONDANSETRON INJ 4 MG/2 ML VIAL IV PUSH (19:42)
[2021-08-27] MEDS: SODIUM CHLORIDE 0.9% IV 1,000 ML 999 ML IV CONT (19:42)
--- NOTE | 2021-08-27 19:46 | ED.GENADULT ---
HPI - General Adult General Chief complaint: Chest Pain Stated complaint: uti, chills, back pain, nausea Time Seen by Provider: 08/27/21 19:01 Source: patient, RN notes reviewed and old records reviewed Mode of arrival: ambulatory Limitations: no limitations History of Present Illness HPI narrative: This is a 75 year old female who presents for evaluation of epigastric pain and low back pain. Patient states approximately 2 months ago she developed epigastric pain and lower back pain. She was evaluated in ER at that time and she was diagnosed with diverticulitis. She states she had improvement in her back pain and epigastric pain after treatment but she still has this pain intermittent. She developed severe mid back pain today after she was raking the leaves. She is unsure if her back pain is worse or better with anything. She denies lower abdominal pain with her back pain but she has been having intermittent epigastric pain. This pain has been occurring intermittently for weeks. She last experienced epigastric pain 30 minutes ago and she states it lasted 5 minutes. She denies pain worse with exertion. She has noticed she had subjective fever today, and she was found to have fever in triage. She also complains of dysuria, increased frequency and urgency for 1 week, and she was started macrobid yesterday. She has chronic cough since her diagnosis of covid pneumonia in September 2020. She denies chest pain or shortness of breath. she does have nausea. Related Data Home Medications Medication Instructions Recorded Confirmed alprazolam [Xanax] 0.25 mg PO DAILY PRN 10/03/20 10/03/20 atorvastatin 10 mg PO DAILY 10/03/20 10/03/20 esomeprazole magnesium 40 mg PO DAILY 10/03/20 10/03/20 folic acid 1 mg PO DAILY 10/03/20 10/03/20 irbesartan 300 mg PO DAILY 10/03/20 10/03/20 montelukast 10 mg PO DAILY 10/03/20 10/03/20 oxybutynin chloride 5 mg PO DAILY 10/03/20 10/03/20 paroxetine HCl 40 mg PO DAILY 10/03/20 10/03/20 aspirin 81 mg tablet,delayed 81 mg PO DAILY 11/22/20 release biotin 10,000 mcg capsule mcg PO 11/22/20 loratadine 10 mg tablet 10 mg PO DAILY 01/11/21 Allergies Allergy/AdvReac Type Severity Reaction Status Date / Time latex Allergy Severe REDNESS,BLISTERS, Verified 05/24/21 17:38 RASH ceftriaxone [From Rocephin] Allergy Intermediate Itching Verified 05/24/21 17:38 bacitracin Allergy Unknown RASH, Verified 05/24/21 17:38 REDNESS codeine Allergy Unknown THROAT Verified 05/24/21 17:38 SWEELING polymyxin B Allergy Unknown RASH, Verified 05/24/21 17:38 REDNESS buspirone AdvReac Mild STOMACH Verified 05/24/21 17:38 UPSET rofecoxib AdvReac Mild NAUSEA Verified 05/24/21 17:38 celecoxib AdvReac Unknown NAUSEA Verified 05/24/21 17:38 gabapentin AdvReac Unknown Verified 05/24/21 17:38 Review of Systems Review of Systems: All systems reviewed & are unremarkable except as noted in HPI and below PMFSH Past Medical History Medical History (Updated 08/28/21 @ 02:21 by Lauryn Daly MD) DVT (deep venous thrombosis) History of coronary artery disease History of gastroesophageal reflux (GERD) History of hyperlipidemia History of hypertension Pulmonary embolism Surgical History Surgical History (Updated 08/27/21 @ 19:55 by Lauryn Daly MD) History of coronary artery stent placement Family History Family History Father Lung cancer Mother Alzheimer disease Social History Social History Smoking status: Never smoker Alcohol intake: current Drinks per week: 1 Substance use: never Gender identity (if verbalized by the patient): Female Spiritual care concerns: No Exam Const: General: alert; No diaphoretic Orientation/consciousness: patient oriented x3 Other: appears uncomfortable HENMT: Head: normocephalic and atraumatic Face and sinus: face symme
[2021-08-27 20:03] LABS: Lactic Acid Reflex 2.2 mmol/L (0.7-2.1)
[2021-08-27 20:14] LABS: Alanine Aminotransferase 24 U/L (4-35); Albumin Level 4.3 g/dL (3.5-5.1); Alkaline Phosphatase 128 U/L (38-126); Aspartate Amino Transferase 39 U/L (14-36); Bilirubin,Total 0.7 mg/dL (0.2-1.3); Lipase 140 U/L (23-300); Magnesium 1.8 mg/dL (1.6-2.3)
[2021-08-27 20:35] LABS: D Dimer 10.11 ug/mL (<0.48)
[2021-08-27 20:59] LABS: Add Urine Microscopic? YES; Appearance Urine Clear (Clear); Bacteria Urine Trace /hpf; Bilirubin Urine Negative (Negative); Blood Urine Negative (Negative); Color Urine Yellow (Yellow); Glucose Urine UA Negative (Negative); Ketones Urine Negative (Negative); Leukocyte Esterase Ur 1+ LEU/UL (Negative); Nitrate Urine Negative (Negative); Protein Urine Negative (Negative); RBC Urine 0-2 /hpf (0-2); Specific Grav Ur 1.013 (1.001-1.035); Squamous Epithelial Cell Urine Rare /hpf (Few)
[2021-08-27 22:11] LABS: Troponin I < 0.012 ng/mL (0.000-0.034)
[2021-08-27 22:48] LABS: Reflex Lactic Acid Yes or No Add Lactic
[2021-08-28] VITALS (8 sets, daily range): BP systolic 104–117; BP diastolic 81–95; PULSE 70–79; RESP 20–25; TEMP 36.7; O2SAT 92–95
[2021-08-28 00:49] LABS: Lactic Acid 0.9 mmol/L (0.7-2.1)
[2021-08-28 01:27] LABS: Troponin I < 0.012 ng/mL (0.000-0.034)
[2021-08-28] MEDS: ONDANSETRON INJ 4 MG/2 ML VIAL IV PUSH (01:48)
[2021-08-28] MEDS: traMADol HCL (*CRX) 50 MG TABLET PO (01:48)
[2021-08-29 18:52] LABS: SARS-CoV-2 RNA PCR Negative
== END 2021-08-28 02:43 | disposition home or self-care (01) ==
PROVIDERS: Emergency Provider General Practice; PCP Nurse Practitioner Adult Health
DX: N39.0 Urinary tract infection, site not specified (principal); M79.10 Myalgia, unspecified site; R10.13 Epigastric pain; Z20.822 Contact with and (suspected) exposure to COVID-19; I25.10 Atherosclerotic heart disease of native coronary artery without angina pectoris; K21.9 Gastro-esophageal reflux disease without esophagitis; E78.5 Hyperlipidemia, unspecified; I10 Essential (primary) hypertension; Z86.718 Personal history of other venous thrombosis and embolism; Z86.711 Personal history of pulmonary embolism; Z95.5 Presence of coronary angioplasty implant and graft; I45.10 Unspecified right bundle-branch block; R94.31 Abnormal electrocardiogram [ECG] [EKG]; Z79.01 Long term (current) use of anticoagulants
CPT/HCPCS: 36415; 71046; 71275; 74177; 80048; 80076; 81001; 83605; 83690; 83735; 84484; 85025; 85380; 85610; 85730; 87086; 87088; 93005; 96361; 96374; 96375; 96376; 99284; A9270; C9803; J0131; J2405; J7030; Q9967; U0003; U0005

== ENCOUNTER 2021-10-03 14:48 | Outpatient (CLI) | payer MEDICARE, BC, SELFPAY ==
--- NOTE | ~2021-10-03 | US_ITS ---
EXAMINATION: US venous doppler [facility] DATE: 10/03/2021 15:24 INDICATION: Left lower limb pain. TECHNIQUE: Grayscale ultrasound images without and with compression and Doppler ultrasound images of the left lower extremity veins were obtained. COMPARISON: Ultrasound 11/01/2020 FINDINGS: The visualized portions of left common femoral vein, profunda (deep) femoral vein, femoral vein, popl iteal vein, peroneal veins, posterior tibial veins, and greater saphenous vein outflow are patent. Th ere is thrombus in a superficial vein in the medial calf. IMPRESSION: 1. No deep venous thrombosis. 2. Thrombosis of a superficial vein in medial left calf. Reviewed, dictated and finalized at location B. ALS REFEREE
== END 2021-10-03 14:49 | disposition home or self-care (01) ==
LOC: ANHIMG 14:54
PROVIDERS: PCP Nurse Practitioner Adult Health; Visit Provider Nurse Practitioner Adult Health
DX: R22.40 Localized swelling, mass and lump, unspecified lower limb (principal); I82.812 Embolism and thrombosis of superficial veins of left lower extremity
CPT/HCPCS: 93971

== ENCOUNTER 2022-05-01 00:35 | Day surgery (SDC) | payer MEDICARE, BC, SELFPAY ==
[2022-04-14 13:22] VITALS: BMI 31.3
--- NOTE | 2022-04-28 14:14 | PM.HPGS ---
History of Present Illness History of Present Illness Consent: Risks, benefits, and alternatives have been discussed and questions answered. Patient agrees to proceed with procedure. Chief complaint: esophageal obstruction, hx of colon polyps Narrative: Renee Fernandez is a 76 year old female with dysphagia. About 3 years ago she was investigated for dysphagia for pills and sometimes choking on solid food. She has s Recently had a great difficulty getting pills to go down. Food is not so much of a problem, but at times she will have both diarrhea and in a twisting feeling in her epigastric area. When that happens she may vomit or bring up a large amount of air, belching.There were no abnormality seen on the modified barium swallow that she states she had many years ago. She also has a history of colon polyps. No new polyps were seen at the time of her last colonoscopy which was 5 years ago. Review of Systems Review of Systems: All systems reviewed & are unremarkable except as noted in HPI and below PMFSH Past Medical History Medical History DVT (deep venous thrombosis) History of coronary artery disease History of gastroesophageal reflux (GERD) History of hyperlipidemia History of hypertension Pulmonary embolism Surgical History Surgical History History of coronary artery stent placement History of tubal ligation Family History Family History Father Lung cancer Mother Alzheimer disease Social History Social History Smoking status: Never smoker Alcohol intake: current Drinks per week: 2 Substance use: current Substance use type: marijuana Other substance usage details: topical cream Living arrangements: alone Gender identity (if verbalized by the patient): Female Spiritual care concerns: No Meds Home Medications and Allergies Home Medications Medication Instructions Recorded Confirmed Type atorvastatin 10 mg tablet 10 mg PO DAILY 10/03/20 04/14/22 History esomeprazole magnesium 40 mg 40 mg PO DAILY 10/03/20 04/14/22 History capsule,delayed release irbesartan 300 mg tablet 300 mg PO DAILY 10/03/20 04/14/22 History montelukast 10 mg tablet 10 mg PO DAILY 10/03/20 04/14/22 History oxybutynin chloride 5 mg 5 mg PO DAILY 10/03/20 04/14/22 History tablet,extended release 24 hr paroxetine HCl 40 mg tablet 40 mg PO DAILY 10/03/20 04/14/22 History aspirin 81 mg tablet,delayed 81 mg PO DAILY 11/22/20 04/14/22 History release sodium sul 1.479 gram-potas ch See Rx Instructions PO PER PKG DIR 03/28/22 Rx 0.188 gram-magnes sul 0.225 gram #24 tabs tablet (Sutab) amitriptyline 50 mg tablet 50 mg PO DAILY 04/14/22 04/14/22 History estradiol 0.01% (0.1 mg/gram) 1 applic vaginal DAILY PRN other 04/14/22 04/14/22 History vaginal cream lemborexant 5 mg tablet (Dayvigo) 5 mg PO DAILY 04/14/22 04/14/22 History mirabegron 25 mg tablet,extended 25 mg PO DAILY 04/14/22 04/14/22 History release 24 hr (Myrbetriq) Allergies Allergy/AdvReac Type Severity Reaction Status Date / Time latex Allergy Severe REDNESS,BLISTERS, Verified 05/01/22 09:44 RASH ceftriaxone [From Rocephin] Allergy Intermediate Itching Verified 05/01/22 09:44 bacitracin Allergy Unknown RASH, Verified 05/01/22 09:44 REDNESS codeine Allergy Unknown THROAT Verified 05/01/22 09:44 SWEELING polymyxin B Allergy Unknown RASH, Verified 05/01/22 09:44 REDNESS pregabalin [From Lyrica] Allergy Rash Verified 05/01/22 09:44 buspirone AdvReac Mild STOMACH Verified 05/01/22 09:44 UPSET rofecoxib AdvReac Mild NAUSEA Verified 05/01/22 09:44 celecoxib AdvReac Unknown NAUSEA Verified 05/01/22 09:44 gabapentin AdvReac Unknown Verified 05/01/22 09:44 Exam Const: General: alert Orientat
--- NOTE | 2022-05-01 07:21 | WPDANESEPPF ---
Anes - Initial Pre Proc Eval Procedure: Operation Date: 05/01/22 09:30 Proposed Procedures p Esophagogastroduodenoscopy & Screening Colonoscopy - Nelson Norris MD Date/Time: 05/01/22 07:21 Surgeon: Nelson Norris MD Pre Op Diagnosis: esophageal obstruction, hx of colon polyps Patient Data Age: 76 Gender: F Height: 1.68 m Weight: 88 kg Allergies Allergy/AdvReac Type Severity Reaction Status Date / Time latex Allergy Severe REDNESS,BLISTERS, Verified 05/01/22 09:44 RASH ceftriaxone [From Rocephin] Allergy Intermediate Itching Verified 05/01/22 09:44 bacitracin Allergy Unknown RASH, Verified 05/01/22 09:44 REDNESS codeine Allergy Unknown THROAT Verified 05/01/22 09:44 SWEELING polymyxin B Allergy Unknown RASH, Verified 05/01/22 09:44 REDNESS pregabalin [From Lyrica] Allergy Rash Verified 05/01/22 09:44 buspirone AdvReac Mild STOMACH Verified 05/01/22 09:44 UPSET rofecoxib AdvReac Mild NAUSEA Verified 05/01/22 09:44 celecoxib AdvReac Unknown NAUSEA Verified 05/01/22 09:44 gabapentin AdvReac Unknown Verified 05/01/22 09:44 Home Medications Medication Instructions Recorded Confirmed Type atorvastatin 10 mg tablet 10 mg PO DAILY 10/03/20 04/14/22 History esomeprazole magnesium 40 mg 40 mg PO DAILY 10/03/20 04/14/22 History capsule,delayed release irbesartan 300 mg tablet 300 mg PO DAILY 10/03/20 04/14/22 History montelukast 10 mg tablet 10 mg PO DAILY 10/03/20 04/14/22 History oxybutynin chloride 5 mg 5 mg PO DAILY 10/03/20 04/14/22 History tablet,extended release 24 hr paroxetine HCl 40 mg tablet 40 mg PO DAILY 10/03/20 04/14/22 History aspirin 81 mg tablet,delayed 81 mg PO DAILY 11/22/20 04/14/22 History release sodium sul 1.479 gram-potas ch See Rx Instructions PO PER PKG DIR 03/28/22 Rx 0.188 gram-magnes sul 0.225 gram #24 tabs tablet (Sutab) amitriptyline 50 mg tablet 50 mg PO DAILY 04/14/22 04/14/22 History estradiol 0.01% (0.1 mg/gram) 1 applic vaginal DAILY PRN other 04/14/22 04/14/22 History vaginal cream lemborexant 5 mg tablet (Dayvigo) 5 mg PO DAILY 04/14/22 04/14/22 History mirabegron 25 mg tablet,extended 25 mg PO DAILY 04/14/22 04/14/22 History release 24 hr (Myrbetriq) Patient hx anesthesia problems: none Family hx anesthesia problems: none Results Review: All pre-operative results and documents have been reviewed as part of the pre-operative evaluation. PMFSH Past Medical History Medical History DVT (deep venous thrombosis) History of coronary artery disease History of gastroesophageal reflux (GERD) History of hyperlipidemia History of hypertension Pulmonary embolism Surgical History Surgical History History of coronary artery stent placement History of tubal ligation Family History Family History Father Lung cancer Mother Alzheimer disease Social History Social History Smoking status: Never smoker Alcohol intake: current Drinks per week: 2 Substance use: current Substance use type: marijuana Other substance usage details: topical cream Living arrangements: alone Gender identity (if verbalized by the patient): Female Spiritual care concerns: No Anes - Eval Final PreProcedure Day of Procedure 05/01/22 07:21 Patient weight: obese Heart: regular rate and rhythm Lungs: clear to auscultation Airway: Mallampati scale class II Neurological: alert and oriented Last oral intake: >/= 8 hours ASA classification: III Emergent: no Anesthetic plan: proceed Anesthesia type and monitoring: general GIVS and standard monitoring Results Review: All pre-operative results and documents have been reviewed as part of the pre-operative evaluation. Informed Consent: The patient's anesthetic pl
[2022-05-01 09:45] VITALS: BP 132/81; PULSE 65; RESP 20; TEMP 36.6; O2SAT 99
[2022-05-01] MEDS: LACTATED RINGERS 1,000 ML 150 ML IV CONT (10:03)
--- NOTE | 2022-05-01 10:13 | SUR.OPER ---
EGD: [id number] COLON: [id number]
[2022-05-01 10:46] VITALS: BP 146/77; PULSE 72; RESP 22; O2SAT 97
[2022-05-01 10:56] VITALS: BP 128/67; PULSE 69; RESP 26; O2SAT 98
[2022-05-01 11:06] VITALS: BP 124/66; PULSE 72; RESP 22; O2SAT 97
== END 2022-05-01 11:17 | disposition home or self-care (01) ==
PROVIDERS: PCP Nurse Practitioner Adult Health; Visit Provider Internal Medicine Gastroenterology
PROC: 0DJ08ZZ Inspection of Upper Intestinal Tract, Via Natural or Artificial Opening Endoscopic (ICD-10-PCS; CPT 43235; principal; 2022-05-01 09:30)
DX: Z12.11 Encounter for screening for malignant neoplasm of colon (principal); K57.30 Diverticulosis of large intestine without perforation or abscess without bleeding; R13.10 Dysphagia, unspecified; Z86.010 Personal history of colon polyps; Z79.82 Long term (current) use of aspirin; Z86.718 Personal history of other venous thrombosis and embolism; Z95.5 Presence of coronary angioplasty implant and graft; I25.10 Atherosclerotic heart disease of native coronary artery without angina pectoris; K21.9 Gastro-esophageal reflux disease without esophagitis; E78.5 Hyperlipidemia, unspecified; I10 Essential (primary) hypertension; I26.99 Other pulmonary embolism without acute cor pulmonale; F12.90 Cannabis use, unspecified, uncomplicated; E66.9 Obesity, unspecified; Z68.32 Body mass index [BMI] 32.0-32.9, adult; R13.12 Dysphagia, oropharyngeal phase; K44.9 Diaphragmatic hernia without obstruction or gangrene
CPT/HCPCS: 43450; G0105; J2704; J7120

== ENCOUNTER 2023-01-23 08:45 | Outpatient (RCR) | payer MEDICARE, BC, SELFPAY ==
--- NOTE | 2023-01-03 14:09 | OTOPDC ---
Assessment and note entered by WHIT Orellana/Pastor, CHT Evaluation Information Assessment Status Evaluation & Discharge Diagnosis Ataxia Onset Unknown Subjective Information Patient reporting dropping items, such as cups. She states she tends to veer to the right when walking. Right hand dominant and reports no change in her handwriting. 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 She is off work right now, has been off since Nov 13, 2022, after she was hospitalized after a fall. Subjectively reports she feels weak. She reports she is scheduled for an EMG for her UEs to see if she has neuropathy. She has confirmed neuropathy in bilateral feet. Reported Pain Level Pain Score 0: Self Report Additional Pain Score Comments Reports low back pain with prolonged standing. Assessment OT Clinical Summary Renee is referred to outpatient OT with dx of ataxia. Assessments today reveal UE/hand strength and coordination that is symmetrical and WFL. She is currently independent with ADLs and household tasks. No further skilled OT indicated at this time. Plan of Care OT Services Indicated No
--- NOTE | 2023-01-03 14:45 | PTOPEVAL1 ---
Assessment and note entered by Cheryl Curtis, PT Evaluation Information Assessment Status Evaluation Diagnosis ataxia Onset Oct 2022 Subjective Information hospitalized in Nov 2022 due to RSV; have had 2 falls- feet got tangled up when she was walking in her home, dark and setting out her trash-lost balance; feel pretty steady with walking, no longer use the walker or cane; GOAL: to find out what is wrong with me and if this is something that can be fixed or not; be able to walk better and get back to working; Reported Pain Level Pain Score 0: Self Report Additional Pain Score Comments intermittent back pain Additional Pain Score Comments Reports low back pain with prolonged standing. Assessment PT Clinical Summary Ann-Marie has the diagnosis of ataxia. She has had a recent hospitalization due to RSV and 2 rounds of COVID. Her R side was weaker and when in the hospital, had MRI and all testing was negative for stroke, TIA; Does have neuropathy of her feet. In the past year has had 2 falls. She lives alone and is doing all her self and home care. Has not yet returned to work--which involves mostly sitting tasks. With the evaluation: she has decreased strength of R and L hip abduction and control with ankle circles; Baker balance score of 50/56 and 2 minute walking test distance of 450'. Skilled PT services are indicated to increase LE strength, balance and gait skills, to decrease risk for falls, increase activity level and be able to return to work. Education for home exercise progression and safety with mobility. Plan of Care Interventions Neuro Re-education,Patient/Caregiver Education, Therapeutic Activities,Therapeutic Exercise PT Services Indicated Yes Treatment Frequency and 2x/wk for 3 weeks Duration These treatments will address the objective and functional deficits as defined above. The patient will be advanced safely and appropriately in order for the patient to progress towards his/her prior level of function. Additional exercises will be introduced and as well as a comprehensive home exercise program upon discharge, if needed, ?to ensure carryover of functional gains achieved in the clinic. This treatment plan has been reviewed and agreement upon by the patient.
--- NOTE | 2023-01-23 09:31 | PTOPDC ---
Assessment and note entered by Cheryl Curtis, PT Evaluation Information Assessment Status Discharge Diagnosis ataxia Onset Oct 2022 Subjective Information Kaya reports: doing better, have not had any falls or trips, stronger; feel steady with walking, feel really good; doing all the exercises at home and they have helped alot; no problems on stairs any longer; ready for therapy to be done; Reported Pain Level Pain Score Self Report Assessment PT Clinical Summary Kaya has received 6 PT sessions. Compared to the initial evaluation: improved in all areas: strength of R and L LE; Baker balance score by 2 points; 2 minute walking test by 50'; dynamic gait balance; transfer from floor indep; she has not had any falls, is more comfortable with her stair and walking ability and has been educated on a home exercise program. Goals were all improved and were partially achieved. Discharge PT services. Plan of Care PT Services Indicated No
== END 2023-02-08 09:29 | disposition home or self-care (01) ==
LOC: ANHPT 08:45
PROVIDERS: PCP Nurse Practitioner Adult Health
DX: R27.0 Ataxia, unspecified (principal)
CPT/HCPCS: 97110; 97112; 97161; 97166; 97530

== ENCOUNTER 2023-10-22 16:45 | Outpatient (CLI) | payer MEDICARE, BC, SELFPAY ==
--- NOTE | ~2023-10-22 | XR_ITS ---
EXAMINATION: XR ribs LT 2V DATE: 10/22/2023 17:06 INDICATION: Pleurodynia TECHNIQUE: 3 views of the left ribs were obtained. COMPARISON: Chest CT dated 08/27/2021 FINDINGS: No rib fractures identified. Mild linear discoid atelectasis at the medial and lateral left lung base . Remainder of the left lung is clear. No pulmonary edema or left-sided pleural effusion or pneumotho rax. Heart size is normal. 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 IMPRESSION: 1. Mild left basilar atelectasis. No rib fracture or acute cardiopulmonary disease. 2. Unchanged rim calcified 2.2 cm splenic artery aneurysm. Reviewed, dictated and finalized at location A. AD DRAWER IMPRESSION: 1. Mild left basilar atelectasis. No rib fracture or acute cardiopulmonary dise ase. 2. Unchanged rim calcified 2.2 cm splenic artery aneurysm.
--- NOTE | ~2023-10-22 | XR_ITS ---
EXAMINATION: XR shoulder RT min 2V DATE: 10/22/2023 17:06 INDICATION: Right shoulder pain post fall TECHNIQUE: AP internally and externally rotated, AP oblique externally rotated and transscapular Y vi ews of the right shoulder were obtained. COMPARISON: None FINDINGS: Old healed fracture deformity of the right fifth rib. Alignment is otherwise normal. No acute fractur e..Mild right glenohumeral osteoarthritis with prominent marginal osteophytes along the posterior inf erior glenoid. 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 There are also small subacromial spurs. Visualized portion of the lungs are clear. So ft tissues are unremarkable. IMPRESSION: 1. Moderate to severe right acromio clavicular and mild glenohumeral osteoarthritis. 2. Chronic fracture deformity of the right fifth rib. No acute osseous abnormality. Reviewed, dictated and finalized at location A. EL WORKER IMPRESSION: 1. Moderate to severe right acromio clavicular and mild glenohumeral osteoarthr itis. 2. Chronic fracture deformity of the right fifth rib. No acute osseous abnormal ity.
== END 2023-10-22 16:46 | disposition home or self-care (01) ==
PROVIDERS: PCP Nurse Practitioner Adult Health; Visit Provider Nurse Practitioner Adult Health
DX: R07.81 Pleurodynia (principal); M25.511 Pain in right shoulder; M19.011 Primary osteoarthritis, right shoulder; W19.XXXA Unspecified fall, initial encounter; J98.11 Atelectasis; I72.8 Aneurysm of other specified arteries
CPT/HCPCS: 71100; 73030

== ENCOUNTER 2023-11-16 08:25 | Outpatient (CLI) | payer MEDICARE, BC, SELFPAY ==
--- NOTE | ~2023-11-16 | XR_ITS ---
EXAMINATION: XR fl inj shoulder RT - MR/CT DATE: 11/16/2023 10:09 INDICATION: Right shoulder pain post fall one month prior TECHNIQUE: A time-out was performed to verify the patient's name, date of , and procedure to b e performed. The procedure including the risks, benefits, and alternatives was discussed with the pat ient. Risks discussed included bleeding and infection. The patient understood the risks and agreed to proceed. The skin overlying the rotator cuff interval of the right glenohumeral joint was prepped a nd draped in usual sterile fashion. Anesthetic was administered with 1% lidocaine subcutaneously. A 22 G needle was advanced under fluoroscopic guidance into the joint. Injectate consisting of 9 mL of a 1:1:1 mixture of sterile saline:Omnipaque 240:1% lidocaine was injected with intra-articular admi nistration confirmed with intermittent fluoroscopy. The needle was removed and the entry site was miriam aned and dressed. There were no immediate complications. Fluoroscopy exposure time was 0.3 minutes. The total number of images was 4. FINDINGS: Real-time fluoroscopy demonstrates the needle in the right glenohumeral joint. IMPRESSION: 1. Successful right glenohumeral joint injection of an iodinated contrast mixture for subsequent CT a rthrogram which will be dictated separately. Reviewed, dictated and finalized at location A. TATION ASSOCIATE IMPRESSION: 1. Successful right glenohumeral joint injection of an iodinated contrast mixtu re for subsequent CT arthrogram which will be dictated separately.
--- NOTE | ~2023-11-16 | CT_ITS ---
EXAMINATION: CT shoulder RT w con DATE: 11/16/2023 10:00 INDICATION: Right shoulder pain post fall one month prior TECHNIQUE: High resolution computed tomography (CT) of the right shoulder was performed with intra-ar ticular contrast but without intravenous contrast. Details of the joint injection and contrast mixtur e have been dictated separately. Additional sagittal and coronal reconstructions were performed. Auto mated exposure control and iterative reconstruction technique were employed. The dose-length product was 361.16 mGy-cm. COMPARISON: Right shoulder radiographs dated 10/22/2023 FINDINGS: Old healed fracture deformities at the posterolateral right fifth-seventh ribs. Bone alignment is oth erwise normal. No acute fracture. Moderate to severe right acromioclavicular osteoarthritis with smal l inferiorly directed marginal osteophytes. The acromion undersurface is curved in morphology (type I I) with small anterior subacromial spur. Mild right glenohumeral osteoarthritis with mild partial-thi ckness cartilage loss along the superior glenoid and posterior inferior humeral head. There is subtle scattered chondral surface irregularity. Contrast extends into a tear at the 10:30-12:00 position of the posterosuperior glenoid labrum. There is a partial thickness articular sided tear of the suprasp inatus tendon with tear margin position approximately 2 cm medial to the superior facet footplate ove rlying the apex of the humeral head. At the level of the tear margin the tear measures 3 mm AP. The l ateral margin of the tear is unable to be identified, potentially tearing along the footplate. The te ar appears to involve no greater than one third of the tendon thickness. There is a thin plane of int rasubstance contrast extending posteriorly into the conjoined portion of the supraspinatus and more p osterior infraspinatus tendon. The intrasubstance contrast extends laterally to the level of the midd le facet footplate. There is mild fatty atrophy of the supraspinatus and infraspinatus muscle bellies . The intra-articular long head biceps tendon is not visualized and there appear to be a suture ancho rs at the cephalad aspect of the intertubercular groove location suggesting prior bicipital tenodesis . 5 mm right middle lobe nodule. No pathologically enlarged lymphadenopathy at the right axilla, righ t hilum or visualized right side of the mediastinum. IMPRESSION: 1. Mild right glenohumeral osteoarthritis with tear at the posterior superior glenoid labrum. 2. Small mild partial-thickness articular sided tear at the supraspinatus tendon with more posterior extension as an intrasubstance split tear in the distal infraspinatus and conjoined supraspinatus and infraspinatus tendons. 3. 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 Reviewed, dictated and finalized at location A. LING BOX PERSON IMPRESSION: 1. Mild right glenohumeral osteoarthritis with tear at the posterior superior g lenoid labrum. 2. Small mild partial-thickness articular sided tear at the supraspinatus tendo n with more posterior extension as an intrasubstance split tear in the distal i nfraspinatus and conjoined supraspinatus and infraspinatus tendons. 3. 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
[2023-11-16 11:03] LABS: Basophils Absolute Auto 0.1 K/mm3 (0.0-0.1); Eosinophils Absolute Auto 0.3 K/mm3 (0-0.3); Eosinophils Percent Auto 3.4 % (0-4.4); Hematocrit 42.8 % (37.0-47.0); Hemoglobin 13.4 g/dL (12.0-15.0); Immature Granulocyte Absolute 0.05 K/mm3 (0.00-0.031); Immature Granulocyte Percent A 0.6 % (0-0.5); Lymphocytes Absolute Auto 1.94 K/mm3 (0.9-3.2); Lymphocytes Percent Auto 21.9 % (18.3-44.2); Mean Corpuscular HGB Conc 31.3 g/dl (32-36); Mean Corpuscular Hemoglobin 30.8 pg (26-34); Mean Corpuscular Volume 98.4 fl (80-100); Monocytes Absolute Auto 0.9 K/mm3 (0.1-0.6); Monocytes Percent Auto 10.5 % (2.6-8.5); Neutrophils Absolute Auto 5.5 K/mm3 (1.3-6.7); Neutrophils Percent Auto 62.6 % (45.5-73.1); Platelet Count Result 259 k/mm3 (150-375); Red Blood Count 4.35 M/mm3 (4.2-5.4); Red Cell Distribution Width 13.2 % (11.5-14.5); White Blood Count 8.8 K/mm3 (4.5-10.0)
[2023-11-16 11:12] LABS: Appearance Urine Cloudy (Clear); Bacteria Urine Rare /hpf; Bilirubin Urine Negative (Negative); Blood Urine Negative (Negative); Color Urine Dark Yellow (Yellow); Glucose Urine UA Negative (Negative); Ketones Urine Negative (Negative); Leukocyte Esterase Ur 1+ LEU/UL (NEGATIVE); Nitrate Urine Negative (Negative); Non Pathogenic Casts 0-2; Protein Urine Trace mg/dL (Negative); RBC Urine 0-2 /hpf (0-2); Specific Grav Ur 1.024 (1.001-1.035); Squamous Epithelial Cell Urine Few /hpf (Few)
[2023-11-16 11:18] LABS: Anion Gap 12 mmol/L (8-16); Blood Urea Nitrogen 28 mg/dL (7-17); Calcium 9.1 mg/dL (8.4-10.2); Carbon Dioxide 24 mmol/L (22-30); Chloride 104 mmol/L (98-107); Cholesterol 157 mg/dL (0-200); Estimated Glomerular Filt Rate 48; Glucose 84 mg/dL (65-110); HDL Direct 61 mg/dL; Potassium 4.3 mmol/L (3.4-5.0); Sodium 140 mmol/L (137-145); Triglycerides 95 mg/dL (<150)
[2023-11-16 11:27] LABS: Add Urine Microscopic? YES
[2023-11-16 11:28] LABS: LDL Cholesterol Direct 69 mg/dL
== END 2023-11-16 08:26 | disposition home or self-care (01) ==
LOC: ANHIMG 08:43
PROVIDERS: PCP Nurse Practitioner Adult Health; Visit Provider Orthopaedic Surgery
DX: M19.011 Primary osteoarthritis, right shoulder (principal); S43.431A Superior glenoid labrum lesion of right shoulder, initial encounter; M75.101 Unspecified rotator cuff tear or rupture of right shoulder, not specified as traumatic; I10 Essential (primary) hypertension; R32 Unspecified urinary incontinence
CPT/HCPCS: 23350; 36415; 73201; 77002; 80048; 80061; 81001; 85025; Q9966; Q9967

== ENCOUNTER 2024-03-13 13:40 | Outpatient (CLI) | payer MEDICARE, BC, SELFPAY ==
[2024-03-13 19:30] LABS: Appearance Urine Clear (Clear); Bacteria Urine 1+ /hpf; Bilirubin Urine Negative (Negative); Blood Urine Negative (Negative); Color Urine Yellow (Yellow); Glucose Urine UA Negative (Negative); Ketones Urine Negative (Negative); Leukocyte Esterase Ur 2+ LEU/UL (Negative); Nitrate Urine Negative (Negative); Non Pathogenic Casts 0-2; Protein Urine Negative (Negative); RBC Urine 0-2 /hpf (0-2); Specific Grav Ur 1.017 (1.001-1.035); Squamous Epithelial Cell Urine Moderate /hpf (Few)
[2024-03-13 19:33] LABS: Add Urine Microscopic? YES
[2024-03-13 19:35] LABS: Anion Gap 6 mmol/L (4-12); Blood Urea Nitrogen 22 mg/dL (7-17); Calcium 9.2 mg/dL (8.4-10.2); Carbon Dioxide 28 mmol/L (22-30); Chloride 104 mmol/L (98-107); Estimated Glomerular Filt Rate 48; Glucose 83 mg/dL (65-110); Potassium 4.5 mmol/L (3.4-5.0); Sodium 138 mmol/L (137-145)
== END 2024-03-13 13:41 | disposition home or self-care (01) ==
PROVIDERS: PCP Nurse Practitioner Adult Health; Visit Provider Nurse Practitioner Adult Health
DX: R32 Unspecified urinary incontinence (principal); R39.9 Unspecified symptoms and signs involving the genitourinary system; N28.9 Disorder of kidney and ureter, unspecified
CPT/HCPCS: 36415; 80048; 81001; 87086; 87088

== ENCOUNTER 2024-04-17 10:37 | Outpatient (CLI) | payer MEDICARE, BC, SELFPAY ==
[2024-04-17 20:12] LABS: Appearance Urine Cloudy (Clear); Bacteria Urine 1+ /hpf; Bilirubin Urine Negative (Negative); Blood Urine Negative (Negative); Budding Yeast Urine Present /hpf; Color Urine Yellow (Yellow); Glucose Urine UA Negative (Negative); Ketones Urine Negative (Negative); Leukocyte Esterase Ur 1+ LEU/UL (Negative); Need Manual Microscopic Reviewed; Nitrate Urine Negative (Negative); Non Pathogenic Casts 0-2; Protein Urine Negative (Negative); RBC Urine 51-100 /hpf (0-2); Specific Grav Ur 1.017 (1.001-1.035); Squamous Epithelial Cell Urine Few /hpf (Few); Urobilinogen Urine 0.2 mg/dL (<2.0); pH Urine 6.5 (5.0-9.0)
[2024-04-17 20:18] LABS: Add Urine Microscopic? YES
== END 2024-04-17 10:38 | disposition home or self-care (01) ==
PROVIDERS: PCP Nurse Practitioner Adult Health; Visit Provider Nurse Practitioner Adult Health
DX: R32 Unspecified urinary incontinence (principal)
CPT/HCPCS: 81001

== ENCOUNTER 2024-04-29 13:46 | Outpatient (CLI) | payer MEDICARE, BC, SELFPAY ==
[2024-04-29 19:15] LABS: Appearance Urine Cloudy (Clear); Bacteria Urine 1+ /hpf; Bilirubin Urine Negative (Negative); Blood Urine Negative (Negative); Color Urine Yellow (Yellow); Glucose Urine UA Negative (Negative); Ketones Urine Negative (Negative); Leukocyte Esterase Ur 3+ LEU/UL (Negative); Need Manual Microscopic Reviewed; Nitrate Urine Negative (Negative); Protein Urine Trace mg/dL (Negative); RBC Urine 0-2 /hpf (0-2); Specific Grav Ur 1.015 (1.001-1.035); Squamous Epithelial Cell Urine Moderate /hpf (Few); Urobilinogen Urine 0.2 mg/dL (<2.0); WBC Urine 51-100 /hpf (0-3)
[2024-04-29 19:16] LABS: Add Urine Microscopic? NO
== END 2024-04-29 13:47 | disposition home or self-care (01) ==
PROVIDERS: PCP Nurse Practitioner Adult Health; Visit Provider Nurse Practitioner Adult Health
DX: R39.9 Unspecified symptoms and signs involving the genitourinary system (principal)
CPT/HCPCS: 81003; 87077; 87086; 87088; 87186

== ENCOUNTER 2024-08-06 15:01 | Outpatient (CLI) | payer MEDICARE, BC, SELFPAY ==
[2024-08-06 18:34] LABS: Basophils Absolute Auto 0.1 K/mm3 (0.0-0.1); Basophils Percent Auto 1.3 % (0.2-1.2); Eosinophils Absolute Auto 0.3 K/mm3 (0-0.3); Eosinophils Percent Auto 4.2 % (0-4.4); Hematocrit 40.5 % (37.0-47.0); Hemoglobin 13.1 g/dL (12.0-15.0); Immature Granulocyte Absolute 0.02 K/mm3 (0.00-0.031); Immature Granulocyte Percent A 0.3 % (0-0.5); Lymphocytes Absolute Auto 1.87 K/mm3 (0.9-3.2); Lymphocytes Percent Auto 30.4 % (18.3-44.2); Mean Corpuscular HGB Conc 32.3 g/dl (32-36); Mean Corpuscular Hemoglobin 31.3 pg (26-34); Mean Corpuscular Volume 96.7 fl (80-100); Mean Platelet Volume 11.8 fl (7.4-10.4); Monocytes Absolute Auto 0.7 K/mm3 (0.1-0.6); Monocytes Percent Auto 11.5 % (2.6-8.5); Neutrophils Absolute Auto 3.2 K/mm3 (1.3-6.7); Neutrophils Percent Auto 52.3 % (45.5-73.1); Platelet Count Result 218 k/mm3 (150-375); Red Blood Count 4.19 M/mm3 (4.2-5.4); Red Cell Distribution Width 13.5 % (11.5-14.5); White Blood Count 6.2 K/mm3 (4.5-10.0)
[2024-08-06 19:37] LABS: Alanine Aminotransferase 17 U/L (6-35); Albumin Level 4.1 g/dL (3.5-5.1); Alkaline Phosphatase 100 U/L (38-126); Anion Gap 9 mmol/L (4-12); Aspartate Amino Transferase 50 U/L (14-36); Bilirubin,Total 0.7 mg/dL (0.2-1.3); Blood Urea Nitrogen 21 mg/dL (7-17); Calcium 9.2 mg/dL (8.4-10.2); Carbon Dioxide 27 mmol/L (22-30); Chloride 102 mmol/L (98-107); Cholesterol 152 mg/dL (0-200); Estimated Glomerular Filt Rate 48; Glucose 106 mg/dL (65-110); HDL Direct 53 mg/dL; Potassium 4.5 mmol/L (3.4-5.0); Sodium 138 mmol/L (137-145); Triglycerides 113 mg/dL (<150)
[2024-08-06 19:49] LABS: LDL Cholesterol Direct 71 mg/dL
== END 2024-08-06 15:02 | disposition home or self-care (01) ==
LOC: ANHBWCLAB 15:03
PROVIDERS: PCP Nurse Practitioner Adult Health; Visit Provider Nurse Practitioner Adult Health
DX: E78.5 Hyperlipidemia, unspecified (principal)
CPT/HCPCS: 36415; 80053; 80061; 85025

== ENCOUNTER 2025-02-03 13:42 | Outpatient (CLI) | payer MEDICARE, BC, SELFPAY ==
--- NOTE | ~2025-02-03 | XR_ITS ---
XR hip BI wo pelvis 02/03/2025 14:23 Indication: Hip pain Procedure: 2 views each hip Comparison: No prior studies for comparison. Findings: There is moderate osteoarthritis of the hips. No fracture or traumatic malalignment. Pelvic structures are grossly unremarkable. No focal soft tissue abnormality. No foreign bodies. Impression: 1: Moderate osteoarthritis of the hips. Reviewed, dictated and finalized at location A. Impression: 1: Moderate osteoarthritis of the hips.
--- OUTSIDE RECORDS SUMMARY | 2025-02-03 15:58 | XMS_ITS | CONTINUITY OF CARE DOCUMENT ---
Author Name ana, ana Address Unknown Organization [facility] Address [address] [place] [address] Phone [phone] Care Team Providers Care Medical Transport Specialist Name Role Phone Nathan LE, Balwinder Unavailable Fabiano MARTINEZ, Carlos Unavailable Fabiano MARTINEZ, Carlos Unavailable PROBLEMS Condition Status Date Provider Notes Splenic aneurysm--CTA chest 1.6 cm 08/2023 active 2022 Dontae Granger Frequent falls active Balwinder Evans MD Mitral regurgitation, mild, Diast dysfn , RVSP 30 mm hg 04/2022 , nl sleep study 06/2021 active To sasha Evans MD Exposure to COVID-19 coronav irus - pneumonia , hospitalized , needed 02 active Balwinder Evans MD Fibromyalgia active Balwinder Evans MD CAD- s/p 2.5 by 12 resolute stent in LAD 2014, nml stress nuc 06/2021 active Balwinder Evans MD Former smoker, quit >30 yrs active Balwinder rojas MD Chronic pain active Balwinder Evans MD GERD active Balwinder Evans MD Anxiety active Balwinder Evans MD Anemia active Balwinder Evans MD Hyperlipidemia active Balwinder Evans MD Hypertension--Echo ef 60%, 04/2022 active Andrew joeyuday Milliedeb ENCOUNTERS Date Type Provider Location Encounter Diag nosis - In-person encounter Office Visit Balwinder Evans MD [facility] Splenic aneurysm--CTA chest 1.6 cm 08/2023 - In-person encounter Office Visit Balwinder Evans MD [facility] Frequent falls - In-person encounter Office Visit Balwinder Evans MD [facility] Mitral regurgitation, mild, Diast dysfn , RVSP 30 mm hg 04/2022 , nl sleep study 06/2021 - In-person encounter Office Visit Balwinder Evans MD [facility] Hypertension--Echo ef 60%, 04/2022 - In-person encounter Office Visit Balwinder Evans MD [facility] Hypertension--Echo ef 60%, 04/2022 - In-person encounter Office Visit Balwinder Evans MD [facility] - In-person encounter Office Visit Balwinder Evans MD [facility] CAD- s/p 2.5 by 12 resolute stent in LAD 2013, nml stress nuc 06/2021Mitral regurgitation, mild, Diast dysfn , RVSP 30 mm hg 04/2022 , nl sleep study 06/2021 - In-person encounter Office Visit Balwinder Evans MD [facility] Exposure to COVID-19 coronavirus - pneumonia , hospitalized , needed 02 - In-person encounter Office Visit Balwinder Evans MD [facility] Fibromyalgia - In-person encounter Office Visit Balwinder Evans MD [facility] Hypertension--Echo ef 60%, AD- s/p 2.5 by 12 resolute stent in LAD 2013, nml stress nuc 06/2021 - In-person encounter Office Visit Balwinder Evans MD [facility] Hypertension--Echo ef 60%, 04/2022Hyperlipidemia AnemiaAnxietyGERDChro chantale painFormer smoker, quit >30 yrsCAD- s/p 2.5 by 12 resolute stent in LAD 2013, nml stress nuc 06/2021 VITAL SIGNS Date Observation Value Provider Body Mass Index (Ratio) 33.11 kg/m2 Fabio Evans MD blood pressure, diastolic -1 mm[Hg] Scarlet middletonLoggonzalez blood pressure, systolic 148 mm[Hg] [facility] blood pressure, diastolic 59 mm[Hg] curt Sal blood pressure, systolic 148 mm[Hg] She rrhéctor Sal oxygen saturation, oximetry 95 % Abbey Sal weight E&M 199 [lb_av] Abbey Sal pulse rate 75 /min Abbey Sal respiratory rate E&M 18 /min Abbey Sal blood pressure, cuff size regular curt Sal height E&M 65 [in_i] Abbey Sal Body Mass Index (Ratio) 33.08 kg/m2 Fabio Evans MD blood pressure, cuff size regular curt Sal blood pressure, diastolic 82 mm[Hg] curt Sal blood pressure, systolic 128 mm[Hg] She rrhéctor Sal oxygen saturation, oximetry 98 % Abbey Sal pulse rate 66 /min Abbey Sal respiratory rate E&M 18 /min Abbey Sal weight E&M 198.8 [lb_av] Abbey Jonelle height E&M 65 [in_i] Abbey Jonelle Body Mass Index (Ratio) 33.54 kg/m2 Fabio Evans MD blood pressure, diastolic 69 mm[Hg] Scarlet middletonLoggonzalez blood pressure, systolic 141 mm[Hg] [facility], cuff size large Ayush Bhakta blood pressure, diastolic 69 mm[Hg] Ayush march [place] blood pressure, systolic 141 mm[Hg] Elgin montgomery [place] pulse rate 75 /min Isa [place] weight E&M 201.6 [lb_av] Isa [place] respiratory rate E&M 16 /min Isa [place] oxygen saturation, oximetry 96 % Isa [place] height E&M 65 [in_i] Isa [place] Body Mass Index (Ratio) 33.61 kg/m2 Fabio Evans MD blood pressure, systolic 153 mm[Hg] Keegan yudydenise Narvaez respiratory rate E&M 18 /min Keeganalexgregoria dejesus Brice pulse rate 65 /min Agnieszkajuanjelani hawkins oxygen saturation, oximetry 97 % Diamond Narvaez weight E&M 202 [lb_av] Diamond hawkins blood pressure, cuff size regular Radha Narvaez height E&M 65 [in_i] Diamond hawkins Body Mass Index (Ratio) 32.61 kg/m2 Fabio Evans MD blood pressure, cuff size large Ke rri Aj blood pressure, diastolic 72 mm[Hg] Ke rri Michaeluenedewayne blood pressure, systolic 112 mm[Hg] Ker ri Aj oxygen saturation, oximetry 98 % Rachel Aj respiratory rate E&M 16 /min Rachel G janice pulse rate 64 /min Rachel Odell bonner weight E&M 196 [lb_av] Rachel Grvijaynenfgregoria bonnerer height E&M 65 [in_i] Rachel Gruenenfgregoria [facility] Body Mass Index (Ratio) 32.98 kg/m2 Fabio Evans MD blood pressure, diastolic 70 mm[Hg] Scarlet nkLogic blood pressure, systolic 126 mm[Hg] Susu kLogic blood pressure, diastolic 70 mm[Hg] Melody Feliz blood pressure, systolic 126 mm[Hg] Laury Feliz oxygen saturation, oximetry 92 % Marcello Fleiz respiratory rate E&M 16 /min Marion Feliz pulse rate 64 /min Marcello moya weight E&M 198.2 [lb_av] Marcello magallaneson height E&M 65 [in_i] Marcello moya blood pressure, cuff size regular Ayush pompa Trell blood pressure, diastolic 76 mm[Hg] Ayush pompa Trell blood pressure, systolic 120 mm[Hg] Be montana Trell Body Mass Index (Ratio) 32.11 kg/m2 Fabio Evans MD blood pressure, diastolic 80 mm[Hg] Juan Lion blood pressure, systolic 122 mm[Hg] Madison Lion oxygen saturation, oximetry 97 % Aida Lion pulse rate 64 /min Aida Dias weight E&M 193 [lb_av] Aida Dias blood pressure, resting Yes Maik Lion height E&M 65 [in_i] Aidalayne Urbina- Arun Body Mass Index (Ratio) 32.28 kg/m2 Fabio Evans MD blood pressure, cuff size regular Cy cheo Cade blood pressure, diastolic 80 mm[Hg] Grupo Cade blood pressure, systolic 138 mm[Hg] Ashlee Cade oxygen saturation, oximetry 96 % Laura Cade respiratory rate E&M 16 /min Laura Cade pulse rate 65 /min Laura figueroa height E&M 65 [in_i] Laura figueroa weight E&M 194 [lb_av] Laura figueroa ALLERGIES Allergy Name Onset Date Reaction Criticality Status LYRICA Low Criticality active GABAPENTIN Low Criticality active LATEX GLOVES Low Criticality active NEOSPORIN ORIGINAL Low Criticality a ctive LOTENSIN Low Criticality active CODEINE SULFATE Low Criticality acti ve CELEBREX Low Criticality active HISTORY OF MEDICATION USE Medication Status Instructions Dates Provider Indications Com ments atorvastatin 10 mg tablet active TAKE 1 TABLET DAILY Dontae Granger atorvastatin 10 mg tablet completed Take 1 tablet by mouth once a day - Dontae Granger Gemtesa 75 mg tablet active Julita Ventimiglia PRACTICE PERFORMANCE MANAGER atorvastatin 10 mg tablet completed TAKE 1 TABLET DAILY - Rachel Rocha dicyclomine 10 mg capsule completed TAKE 1 CAPSULE BY MOUTH 4 TIMES A DAY NEEDED - Julita Ramirezmiglia PRACTICE PERFORMANCE MANAGER paroxetine HCl 40 mg tablet active Balwinder Evans MD folic acid 1 mg tablet completed - Balwinder Evans MD Dayvigo 5 mg tablet completed - Julita Ramirezctodell [facility] esomeprazole magnesium 40 mg capsule,delayed release(DR/EC) active Balwinder Evans MD amitriptyline 50 mg tablet active 1 tablet by mouth once a day Marcello Feliz #90, 90 days supply, Prescribed by CARLOS AMARAL, Filled 04/01/2019 ATORVASTATIN CALCIUM 10 MG ORAL TABLET completed one tab daily - Marcello Feliz VITAMIN D (CHOLECALCIFERO L) TABLET completed TAke 1 tab once a week - Marcello Feliz alprazolam 0.25 mg tablet,disinteg rating completed Take 1 tablet by mouth once a day - Julita Valladaresglia [facility] aspirin 81 mg tablet,delayed release (DR/EC) active Take 1 tablet by mouth once a day Laura Rayo irbesartan 300 mg tablet active Take 1 tablet by mouth once a day Laura Rayo Paxil 30 mg tablet completed Take 1 tablet by mouth once a day - Julitaclinton Ramirezmiglia PRACTICE PERFORMANCE MANAGER biotin 1 mg tablet completed Take 1 tablet by mouth once a day - Julita Ramirezmiglia PRACTICE PERFORMANCE MANAGER Nasonex 50 mcg/actuation spray,non-aeros ol active Take 2 spray into both nostrils once a day as needed Laura Rayo montelukast 10 mg tablet active Take 1 tablet by mouth once a day Laura Cade oxybutynin chloride 5 mg tablet completed Take 1 tablet by mouth once a day - Julitaclinton Ramirezmiglia [facility] SOCIAL HISTORY Date Observation Value Provider drug use no Julitaclinton Ramirezmig cristian [facility] alcohol use, average drinks per day social Julita Ventimiglia [facility] alcohol use yes Julitaclinton Ramirezmig cristian [facility] smoking status Never smoker Julita Richard igljoey [facility] social history reviewed E&M revi ewed - no changes required Dontae Granger smoking status Never smoker Abbey Sal social history reviewed E&M revi ewed - no changes required Dontae Granger smoking status Never smoker Isa Bhakta social history reviewed E&M revi ewed - no changes required Balwinder Evans MD social history reviewed E&M revi ewed - no changes required Dontae Granger Exercise counseling yes Fernando Narvaez social history reviewed E&M revi ewed - no changes required Dontae Granger social history reviewed E&M revi ewed - no changes required Dontae Svetlanaflako social history E&M S moking History: Anthony beltrán is a former smoker. Dontae Ahflako smoking history, tot al pack/day 1 PPD Rachel Tiannfelder cigarette use yes Rachel Tiannf elder smoking status Former smoker Rachel Tian nfelder social history reviewed E&M revi ewed - no changes required Balwinder Evans MD social history E&M S moking History: Anthony beltrán is a former smoker. Balwinder Evans MD social history reviewed E&M revi ewed - no changes required Balwinder Evans MD smoking history, tot al pack/day 1 PPD Marcello Feliz cigarette use yes Marcello rios smoking status Former smoker Marcello Ponce giselle social history E&M S moking History: Anthony beltrán is a former smoker. Mariaelena Cai smoking history, tot al pack/day 1 PPD Mariaelena Trell cigarette use yes Ayushewon Trell smoking status Former smoker Mariaelena Trell social history reviewed E&M revi ewed - no changes required Mariaelena Cai social history E&M S moking History: Anthony beltrán is a former smoker. Balwinder Evans MD smoking history, tot al pack/day 1 PPD Aida Urbina-Arun cigarette use yes Aida Urbina -Arun smoking status Former smoker Aida Daniels on-Arun social history reviewed E&M revi ewed - no changes required Aida Urbina-Arun social history E&M S moking History: Anthony beltrán is a former smoker. Balwinder Evans MD social history reviewed E&M revi ewed - no changes required Balwinder Evans MD smoking history, tot al pack/day 1 PPD Laura Rayo cigarette use yes Laura Saenz shiv smoking status Former smoker Laura casiano FUNCTIONAL STATUS Date Observation Value Provider HRA, CV Assess/Plan, Angina (inactive) Management Plan continue current therapy Julita Ventimiglia PRACTICE PERFORMANCE MANAGER HRA, CV Assess/Plan, Angina (inactive) Management Plan continue current therapy Dontae Ahmedzai HRA, CV Assess/Plan, Angina (inactive) Management Plan continue current therapy Dontae Ahmedzai HRA, CV Assess/Plan, Angina (inactive) Management Plan continue current therapy Dontae Ahmedzai HRA, CV Assess/Plan, Angina (inactive) Management Plan continue current therapy Dontae Ahmedzai HRA, CV Assess/Plan, Angina (inactive) Management Plan continue current therapy Dontae Ahmedzai HRA, CV Assess/Plan, Angina (inactive) Management Plan continue current therapy Dontae Ahmedzai HRA, CV Assess/Plan, Angina (inactive) Management Plan continue current therapy Balwinder Evans MD HRA, CV Assess/Plan, Angina (inactive) Management Plan continue current therapy Mariaelena Cai HRA, CV Assess/Plan, Angina (inactive) Management Plan continue current therapy Balwinder Evans MD INSURANCE PROVIDERS Payer name Policy type / Coverage type [place] red democrat ID [facility] [id number] 1 [place] Medicare [id number] ADVANCE DIRECTIVES Name Date DISCUSSED - NO DECISION MADE TREATMENT PLAN Date Name Performer [id number],S, Dontae Paredesza i [id number],S, Dontae Motamedza i [id number],S, Dontae Paredesza i [id number],S, Dontae Pinto i [id number],S, Dontae Paredesza i [id number],S, Julitaclinton foley [facility] [id number],S, [facility] ashleygrisel [facility] [id number],S,o n statin therpay H er updated medication list for this problem includes: Atorvastatin 10 Mg Tablet (Atorvastatin) ..... Take 1 tablet daily [facility] [id number],S,B P 148/59 w ill continue present medication regimen p atient will monitor BP at home H er updated medication list for this problem includes: Irbesartan 300 Mg Tablet (Irbesartan) ..... Take 1 tablet by mouth once a day Aspirin 81 Mg Tablet,delayed Release (dr/ec) (Aspirin) ..... Take 1 tablet by mouth once a day [facility] [id number],S,E F 60% on last echo w ill continue f/[facility] [id number],C,S he has chronic SOB post covid and RSV S he is increasing activity n o chest pain S tress test negative for ischemia and last echo normal EF W ill continue medical management at this time [facility] [id number],S, Dontae Motamedza i [id number],S, Dontae Svetlanamedza i [id number],S, Dontae Svetlanamedza i [id number],S, Dontae Svetlanamedza i [id number],S, Dontae Svetlanamedza i [id number],S, Dontae Svetlanamedza i [id number],S, Dontae Ahmedza i [id number],S, Dontae Ahmedza i [id number],S, Dontae Ahmedza i [id number],S, Dontae Ahmedza i [id number],S, Dontae Ahmedza i [id number],S, Dontae Ahmedza i [id number],S, Dontae Ahmedza i [id number],S, Dontae Ahmedza i [id number],S, Dontae Ahmedza i [id number],S, Dontae Ahmedza i [id number],S, Dontae medza i [id number],S, Dontae medza i [id number],S, Dontae medza i [id number],S, Dontae medza i [id number],S, Dontae medza i [id number],S, [facility] [id number],S, Balwinder Evans MD [id number],S, Balwinder Evans MD [id number],B, Balwinder Evans MD [id number],W, Balwinder Evans MD Telehealth Dontae Ahmedzai Telehealth Dontaeuday Paredeszadeb Telehealth Dontae Ahmedzai Telehealth Dontae Ahmedzai Telehealth Dnotae medzai Cardiology Julita Ventimigl ia PRACTICE PERFORMANCE MANAGER Cardiology Julita Ventimigl ia PRACTICE PERFORMANCE MANAGER Cardiology:on statin therpay H er updated medication list for this problem includes: Atorvastatin 10 Mg Tablet (Atorvastatin) ..... Take 1 tablet daily Julita Hernandez [facility] Cardiology:BP 148/59 w ill continue present medication regimen p atient will monitor BP at home H er updated medication list for this problem includes: Irbesartan 300 Mg Tablet (Irbesartan) ..... Take 1 tablet by mouth once a day Aspirin 81 Mg Tablet,delayed Release (dr/ec) (Aspirin) ..... Take 1 tablet by mouth once a day Julitaclinton Hernandez [facility] Cardiology:EF 60% on last echo w ill continue f/u echo Julitaclniton Hernandez [facility] Cardiology:She has c hronic SOB post covid and RSV S he is increasing activity n o chest pain S tress test negative for ischemia and last echo normal EF W ill continue medical management at this time Julita Hernandez [facility] Cardiology Dontae Ahmedzai Cardiology Dontae Ahmedzai Cardiology Dontae Ahmedzai Cardiology Dontae Ahmedzai Cardiology Dontae Ahmedzai Cardiology Dontae Ahmedzai Cardiology Dontae Ahmedzai Cardiology Dontae Ahmedzai Cardiology Dontae Ahmedzai Cardiology Dontae Ahmedzai Cardiology Dontae Ahmedzai Cardiology Dontae Ahmedzai Cardiology Dontae Ahmedzai Cardiology Dontae Ahmedzai Cardiology Dontae Ahmedzai Cardiology Dontae Ahmedzai Cardiology Dontae Ahmedzai Cardiology Dontae Ahmedzai Cardiology Dontae Ahmedzai Cardiology Dontae Ahmedzai Cardiology Dontae Ahmedzai Cardiology Dontae Granger Cardiology Balwinder Evans MD Cardiology Balwinder Evans MD Cardiology Balwinder Evans MD Cardiology Balwinder Evans MD Cardiology - review, cpoe, elham Evans MD Cardiology - review, cpoe, elham Evans MD Cardiology - review, cpoe, elham Evans MD Cardiology - review, cpoe, elham Evans MD Cardiology - review, cpoe, elham Evans MD Cardiology Balwinder Evans MD Cardiology Balwinder Evans MD Cardiology Balwinder Evans MD Cardiology Balwinder Evans MD Cardiology Balwinder Evans MD Cardiology New Patient Keyshawnielvie best MD Cardiology New Patient Toniya Shani best MD Cardiology New Patient Toniya Shani best MD Cardiology New Patient Keyshawnielvie best MD Cardiology New Patient Keyshawnielvie best MD Date Name CT Angio, abdomen an d pelvis CT Angio Chest (Aort a) Stress Regadenoson Complete Echo Sleep Study Home Stress Regadenoson Complete Echo Stress Regadenoson Complete Echo HISTORY OF PROCEDURES Procedure Date Procedure Name Provider Procedure Notes S tatus EKG Balwinder Evans MD completed EKG Balwinder Evans MD completed EKG Balwinder Evans MD completed Schedule Followup Balwinder Evans MD 1 year TS co mpleted Regadenoson, 4 units Balwinder Evans MD completed Cardiolite, 2 units Balwinder Evans MD completed SPECT Images Balwinder Evans MD complet ed Stress EKG Balwinder Evans MD completed EKG Balwinder Evans MD completed
--- OUTSIDE RECORDS SUMMARY | 2025-02-03 15:58 | XMS_ITS | Encounter Summary ---
Author Organization [facility] Address [address] [place] [address] Care Team Providers Care Spin Table Operator Name Role Phone Unavailable Primary Care Provider Unavailabl e Encounter Details Date Type Department Care Team (Late st Contact Info) Description 11/20/2024 Lab Requisition [facility] - DermPath Lab [address] [place] [address] Ellen Lui MD [address] [place] [address] Social History Tobacco Use Types Packs/Day Years Used Date Smoking Tobacco: Former Cigarettes 0.8 20 Smokeless Tobacco: Never Comments:quit 25 yrs ago Alcohol Use Standard Drinks/Week Comments Yes 0 (1 standard drink = 0.6 oz pur e alcohol) 1 per week Sex and Gender Information Value Date Recorded Sex Assigned at Not on file Gender Identity Female 09/28/2017 8:52 AM ETL SOFTWARE ENGINEER Sexual Orientation Not on file documented as of this encounter Plan of Treatment Not on file documented as of this encounter Procedures Procedure Name Priority Date/Time Associated Diagnosis Comments DERMATOPATHOLOGY Routine 11/20/2024 3:10 PM ETL SOFTWARE ENGINEER documented in this encounter Results * DERMATOPATHOLOGY (11/20/2024 3:10 PM ETL SOFTWARE ENGINEER) Case Report Dermatopathology Report Case: [id number] Authorizing Provider: Ellen Lui MD Collected: 11/20/2024 03:10 PM Ordering Location: [facility] - Received: 11/24/2024 01:32 PM [facility]erm[facility] Lab Pathologist: Pepito Landaverde MD Specimen: Skin, left distal lateral leg 3:27 PM [facility] Amended Report At the request of the clinician's office, the clinical history is changed from SCCIS proven to SCC . At the request of the clinician's office, the site is changed from Left distal leg to Left distal lateral leg 3:27 PM [facility] Final Diagnosis Specimen A. 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) NOT PRESENT AT MARGIN 3:27 PM ETL SOFTWARE ENGINEER DERMATOPATHOLOGY LABORATORY Amendment electronically signed by Pepito Landaverde MD on 12/03/2024 at 3:27 PM Amendment electronically signed by Pepito Landaverde MD on 11/28/2024 at 4:56 PM Clinical History SCC 3:27 PM [facility] Gross Description Specimen A: Received is one formalin filled container labeled with the patient's name and designated left distal lateral leg.The specimen consists of an ellipse measuring [id number] mm and is oriented with the suture/notch at the 12 o'clock position labeled on the requisition as notched. The 12 to 6 o'clock margin is inked green. The 6 o'clock to 12 o'clock margin is inked red. The 12 o'clock tip is submitted in cassette 1. The 6 o'clock tip is submitted in cassette 2. The remainder of the ellipse is serially sectioned and submitted in cassettes 3 -4. Jar 0. 3:27 PM [facility] Microscopic Description Specimen A. SKIN, left distal lateral leg: The epidermis shows parakeratosis, full thickness disorderly maturation of keratinocytes, mitoses at different levels, and dyskeratotic cells. This lesion is not present at the margin of the specimen. 3:27 PM [facility] Disclaimer An external and internal positive and negative controls are appropriate for the histochemical, immunohistochemical and immunofluorescence stain(s) in this case (if any), except where stated explicitly. The performance characteristics of the stain(s) cited in this report were developed and its performance characteristic determined by the Dermatopathology Laboratory at [facility], directed by Dr. Mateus Landaverde. These tests need not be, and therefore are not, approved by the [place] Food and Drug Administration. The tests are used for clinical purposes. Billing Codes Specimen Charges Stain Charges 51248 1 5 3:27 PM ETL SOFTWARE ENGINEER DERMATOPATHOLOGY LABORATORY Embedded Images 5 3:27 PM ETL SOFTWARE ENGINEER DERMATOPATHOLOGY LABORATORY Pathology/Cytolo gy TISSUE SPECIMEN FROM SKIN / Unknown 11/20/2024 3:10 PM ETL SOFTWARE ENGINEER 11/24/2024 1:32 PM ETL SOFTWARE ENGINEER Ellen Lui MD LAB - PATHOLOGY/CYTO LOGY ORDERABLES DERMATOPATHOLOGY LABORATORY [facility] - Department of Dermatology [facility] Medicine [address] [place] [address], [address] [phone] documented in this encounter Visit Diagnoses Not on filedocumented in this encounter
--- OUTSIDE RECORDS SUMMARY | 2025-02-03 15:58 | XMS_ITS | Clinical Summary ---
Author Organization [facility] Address [address] [place] [address] Care Team Providers Care Learning Support Aide Name Role Phone Bayron Rich MD Primary Care Provider [phone] Allergies Active Allergy Reactions Criticality Noted Date Comments Adhesive Tape-Silicones Rash,Other (See comments) Medium Reaction: Hypersensitivity, Rash, Gloves, Latex With Aloe Vera Rash Medium 04/28/2019 Benazepril Cough Low 08/12/2015 Reaction: Cough, Buspirone Nausea only,Nausea And Vomiting,Unknown Low 08/12/2015 Reaction: Nausea, Celecoxib Nausea only,Unknown,Other (See comments) Low 08/12/2015 Reaction: Nausea, Codeine Other (See comments),Anaphylax is High Reaction: Unknown, , , Reaction: Anaphylaxis, Gabapentin Unknown,Nausea only Low Latex Rash,Other (See comments) Medium 08/12/2015 Reaction: Unknown, , Reaction: Rash, Nitrofurantoin Other (See comments) High 03/18/2024 Elevated bili, LFTs, DILI Xcuhlvay-Ncxqhubuav-Dlaqb yxin Unknown,Hives Medium 08/12/2015 Neosporin (Neomycin-Polymyx) Hives Medium Reaction: Hives, Pregabalin Unknown Low Rofecoxib Nausea only,Unknown,Other (See comments) Low 08/12/2015 Reaction: Nausea, Medications nitroglycerin (NITROSTAT) 0.[address] 1 tablet (0.4 mg total) under the tongue every 5 (five) minutes as needed for chest pain Active PARoxetine (PAXIL) 40 mg tabletIndicatio ns:Anxiety Take 1 tablet (40 mg total) by mouth every morning 30 tablet 11 3 Active amitriptyline (ELAVIL) 75 mg tabletIndicatio ns:Peripheral nerve disease Take 1 tablet (75 mg total) by mouth nightly 90 tablet 3 3 Active Myrbetriq 25 mg tablet extended release 24 hr Take 1 tablet (25 mg total) by mouth daily [address] (NexIUM) 40 mg capsule Take 1 capsule (40 mg total) by mouth daily before breakfast 4 Active scopolamine 1 mg over 3 days patch [address] 1 patch on the skin once 4 Active aspirin 81 mg enteric coated tablet Take 1 tablet (81 mg total) by mouth nightly Active atorvastatin (LIPITOR) 10 mg tablet Take 1 tablet (10 mg total) by mouth nightly Active montelukast (SINGULAIR) 10 mg tablet Take 1 tablet (10 mg total) by mouth every morning Active docusate sodium (DOK) 100 mg tabletIndicatio ns:constipation Take 1 tablet (100 mg total) by mouth nightly Active benzocaine-ment hoL (CHLORASEPTIC) 6-10 mg lozenge Take 1 lozenge by mouth every 3 (three) hours as needed for sore throat 60 tablet 1 4 Active Additional Information Patient not taking.Reported on 05/19/2024 benzonatate (TESSALON) 100 mg capsuleIndicati ons:Cough Take 1 capsule (100 mg total) by mouth 3 (three) times a day as needed for cough 20 capsule 1 4 Active Additional Information Patient not taking.Reported on 05/19/2024 irbesartan (AVAPRO) 150 mg tablet Take 1 tablet (150 mg total) by mouth nightly 30 tablet 1 4 Active triamcinolone (KENALOG) 0.1 % cream Apply topically 2 (two) times a day as needed for irritation (itching related to stasis dermatitis) 30 g 1 4 Active furosemide (LASIX) 20 mg tablet Take 1 tablet (20 mg total) by mouth daily as needed (leg swelling) 14 tablet 1 4 Active oxyBUTYnin (DITROPAN) 5 mg tablet Take 1 tablet (5 mg total) by mouth 2 (two) times a day 4 Active ALPRAZolam (XANAX) 0.5 mg tablet Take 1 tablet (0.5 mg total) by mouth 2 (two) times a day as needed 4 Active benzonatate (TESSALON) 100 mg capsuleIndicati ons:Cough Take 1 capsule (100 mg total) by mouth every 8 (eight) hours 21 capsule 4 Active Active Problems Problem Noted Date Diagnosed Date Disorientation 03/17/2024 Lower extremity cellulitis 03/17/2024 Stroke-like symptoms 03/17/2024 Hypotension 03/17/2024 Transaminitis 04/27/2023 Overview (04/27/2023): Elevated liver enzymes while receiving antibiotics. Likely related to antibiotics as it down trended and continues to down trend, possibly related to some underlying RIZVI, or heart failure though recent CT scan did not show changes in hepatic architecture. -Repeat CMP today. Orthopnea 04/27/2023 Overview (04/27/2023): Endorses some dyspnea with exertion, orthopnea, and PND in the last several weeks. Denies chest pain. No edema in bilateral legs. Given elevated BMI and other ris factors will get TTE. If negative for heart failure will consider stress imaging for inducible ischemia. -TTE ordered Carpal tunnel syndrome 12/12/2022 Deep venous thrombosis of lower extremity 2022 Peripheral nerve disease 12/12/2022 Overview (12/12/2022): Unclear etiology of neuropathy. Reported to be confirmed by EMG studies but no records available from studies. Has negative SPEP, RPR, normal folate, normal B12, normal A1c, has low B6. Assessment & Plan (12/12/2022 2:02 PM TRESTLEMAN): [] Given phone number to make appointment with neurology [] EMG ordered [] Continuing amitriptyline for neuropathy [] PT/OT referral placed to assist in regaining functional skills with walking. Pulmonary embolism 12/12/2022 Urge incontinence of urine 12/12/2022 Vitamin D deficiency 12/12/2022 Overview (04/27/2023): History of Vit D deficiency requiring supplementation. Will send repeat VitD level due to recent fatigue. Ataxia 11/13/2022 Hypertension 08/31/2021 Overview (12/12/2022): History of HTN. On [id number] at home Assessment & Plan (12/12/2022 1:51 PM TRESTLEMAN): [] Refileld irbesartan Assessment & Plan (08/31/2021 4:32 AM CDT): A/P: continue home irbesartan 300 mg qdaily Thyroid nodule 10/22/2020 Anxiety 04/28/2019 Overview (12/12/2022): Significant anxiety and concern regarding her aging. On paroxetine 40 mg, amitriptyline 75 mg for mood and neuropathy symptoms. 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 Assessment & Plan (12/12/2022 1:53 PM TRESTLEMAN): [] Provided extensive counseling in the office visit with an attending [] WIll continue current regimen. Assessment & Plan (08/31/2021 4:31 AM CDT): A/P: continue home paxil, low dose PRN alprazolam, TCA Coronary arteriosclerosis 04/28/2019 Overview (12/12/2022): Stent to LAD in 2013. On Aspirin monotherapy Assessment & Plan (12/12/2022 1:54 PM TRESTLEMAN): [] Continue asa 81 and atorvastatin. Refills sent to pharmacy Gastroesophageal reflux disease 04/28/2019 Aneurysm of splenic artery 03/24/2019 History of nonmelanoma skin cancer 09/03/2017 Eczema 02/22/2017 Ascending aortic aneurysm 06/29/2016 Overview (12/12/2022): Thoracic aortic aneurysm without rupture Osteoarthritis 03/20/2016 Positive antinuclear antibody 01/07/2016 Overview (12/12/2022): Positive ISIS with negative autoimmune workup otherwise. Reportedly has a history of RA but this is unconfirmed Hand X ray negative for inflammatory joint disease Assessment & Plan (12/12/2022 2:00 PM TRESTLEMAN): [] ccp sent [] Hand X rays today Fibromyalgia 01/07/2016 Inflamed seborrheic keratosis 12/24/2015 Ascending aortic aneurysm 06/25/2015 Overview (02/16/2017): Ascending aortic aneurysm Basal cell carcinoma (BCC) of lower extremity Venous stasis dermatitis 11/16/2014 Actinic keratosis 10/03/2013 Squamous cell carcinoma of skin of lower extremi ty 04/29/2012 Basal cell carcinoma (BCC) of skin of lip 2011 Skin neoplasm 03/26/2012 Resolved Problems Problem Noted Date Diagnosed Date Resolved Date Drug-induced liver injury 09/04/2021 Overview (09/04/2021): Patient received macrobid for UTi as outpatient that resulted in DILI and rash. Both of which improved during stay. Non-intractable vomiting 08/31/2021 Fever 08/31/2021 12/12/2022 Assessment & Plan (08/31/2021 4:47 AM CDT): A: ongoing intermittently for weeks with several high grade temperatures over the last few days, Tm 102.7. Started prior to macrobid exposure. Also with weeks of intermittent abdominal pain (epigastric and lower abdominal), nausea, and now with 1 day of non-blanching erythematous macular rash on lower extremities, elevated LFTs. No evidence of lymphadenopathy on CT C/A/P and head/neck lymph nodes normal. Notes intermittent chest pain/dyspnea. Reports previous diagnosis with rheumatoid arthritis. History of esophageal strictures requiring intermittent dilation. Could represent subacute infectious endocarditis, other infections, lymphoma, vasculitis, etc. P: -Blood cultures X 2 sent in ED, urine culture sent, CT w/o evidence of PNA, RVP negative, hepatitis panel ordered -CRP, ESR ordered -If highly elevated and blood culture no growth consider autoimmune evaluation (C3, C4, ISIS, ANCA, cryoglobulins, RF/anti-CCP) -Consider TTE Abdominal pain 08/31/2021 03/17/2024 Assessment & Plan (08/31/2021 4:53 AM CDT): A: intermittent, sharp stabbing pain mid and upper abdomen. Currently with mild epigastric pain. Carnett sign positive (no reduction in abdominal pain with rectus abdominus activation). Reports distention and sensation of her intestines flipping with these episodes, symptoms typically improve after vomiting. Previously told she had diverticulitis. Could represent MSK pain, IBS, gastritis in setting of NSAID exposure, vasculitis, less likely due to chronic choledocholithiasis, volvulus, mesenteric ischemia, etc. P: -Monitor clinically, await infectious/inflammatory workup -Consider PPI trial if epigastric pain persists -If workup negative consider MRCP for evaluation of chronic biliary dilation (likely physiologic post-cholecystectomy), additional abdominal evaluation Chronic hypoxemic respiratory failure 08/31/2021 12/12/2022 Assessment & Plan (08/31/2021 4:24 AM CDT): A: requiring 1-2L NC at rest post-COVID P: continue 2L NC Dysuria 08/31/2021 03/17/2024 Assessment & Plan (08/31/2021 4:33 AM CDT): A: urinary frequency, dysuria, sensation of incomplete voiding, ongoing for weeks. Not improving with macrobid. CT with thick walled bladder. No hematuria. Remote smoking hx. Could represent MDR UTI, interstitial cystitis, bladder cancer, etc. P: -Awaiting urine culture -Continue CTX 1g q24h for now -Consider OP Urology evaluation if urine culture no growth/polymicrobial -Continue home oxybutinin 5 mg qdaily Elevated LFTs 08/31/2021 12/12/2022 Assessment & Plan (08/31/2021 4:29 AM CDT): A: largely hepatocellular pattern with AST/ALT 2X ULN and mild bilirubin elevation. In setting of recent exposure to macrobid. Ongoing non-blancing erythematous macular rash and intermittent fever. Not taking large amounts of tylenol. Could be chronic liver injury from NAFLD, acute injury due to macrobid but onset of liver injury relatively rapid for acute macrobid reaction. Other possibilities include viral hepatitis, autoimmune hepatitis, other systemic disease P: -Avoid macrobid, repeat LFTs -Acute hepatitis panel -If worsening and hepatitis panel negative consider sending autoimmune hepatitis labs Non-intractable vomiting 08/31/2021 Keratosis, senilis 09/03/2017 Pain in shoulder 02/21/2017 12/12/2022 Asteatotic eczema 02/01/2017 12/12/2022 Nummular eczema 12/24/2015 12/12/2022 Pain of foot 08/31/2015 12/12/2022 Pain in extremity 12/23/2014 12/12/2022 Overview (02/16/2017): Pain in limb Milia 02/12/2014 12/12/2022 Rash 03/03/2013 12/12/2022 Assessment & Plan (08/31/2021 4:21 AM CDT): A: 1 day of non-blanching, macular erythematous rash on BL LE. Also with faint, erythematous blanching macular rash over abdomen. May be drug reaction to macrobid, other possibilities include other drug reactions, vasculitis P: continue to monitor, consider Dermatology consult if worsening or labs consistent with vascultiis Dermatitis venenata 01/27/2013 12/12/19 23 Scar 07/04/2012 12/12/2022 Postoperative infection 05/20/201211/14 Immunizations Immunization Administration Dates Next Due Influenza, Quadrivalent, Hig h Dose, Preservative Free, Intrr 12/12/2022,09/02/2021 Surgical History Surgery Date Site/Laterality Comments OTHER SURGICAL HISTORY coronary artery disease: coronary stent CHOLECYSTECTOMY Cholecystectomy APPENDECTOMY Medical History Medical History Date Comments Hx Other Medical ascending aorti c aneurysm; Comments: [facility] 06/25/2015 - Hypertension Hypertension Hx Other Medical cataracts; Comm ents: [facility] 06/25/2015 - Hx Other Medical coronary artery disease; Comments: [facility] 06/25/2015 - Hypercholesterolemia High choles terol; Comments: [facility] 06/25/2015 - Hx Other Medical hx DVT; Comment s: [facility] 06/25/2015 - Hx Other Medical chronic sinus c ondition; Comments: [facility] 06/25/2015 - Arthritis Arthritis; Comme nts: [facility] 06/25/2015 - Family History Medical History Relation Name Comments Hypertension Son Hypertension; Relation Name Status Comments Son Social History Tobacco Use Types Packs/Day Years Used Date Smoking Tobacco: Former Smokeless Tobacco: Never Alcohol Use Standard Drinks/Week Comments Yes 0 (1 standard drink = 0.6 oz pur e alcohol) [facility] Utilities Answer Date Recorded In the past 12 months has e electric, gas, oil, or water company threatened to shut off services in your home? No 03/18/2024 Social Connection and Isolat ion Panel [NHANES] Answer Date Recorded In a typical week, how many times do you talk on the phone with family, friends, or neighbors? More than three times a week 03/18/2024 How often do you get togethe r with friends or relatives? More than three times a week 03/18/2024 How often do you attend chur ch or confucianism services? More than 4 times per year 03/18/2024 Do you belong to any clubs o r organizations such as confucianism groups, unions, fraternal or athletic groups, or school groups? No 03/18/2024 How often do you attend meet ings of the clubs or organizations you belong to? Never 03/18/2024 Are you , , di vorced, , never , or living with a partner? 03/18/2024 AUDIT-C Answer Date Recorded Q1: How often do you have a drink containing alc ohol? Never 11/14/2022 Average Number of Drinks Not on file 023 Q3: How often do you have si x or more drinks on one occasion? Never 11/14/2022 Overall Financial Resource Strain (CARDIA) Answe r Date Recorded How hard is it for you to pa y for the very basics like food, housing, medical care, and heating? Not very hard 03/18/2024 Hunger Vital Sign Answer Date Recorded Within the past 12 months, y ou worried that your food would run out before you got the money to buy more. Never true 03/18/20 24 Within the past 12 months, t he food you bought just didn't last and you didn't have money to get more. Never true 03/18/2024 PRAPARE - Transportation Answer Date Re corded In the past 12 months, has l ack of transportation kept you from medical appointments or from getting medications? No 05/2024 In the past 12 months, has l ack of transportation kept you from meetings, work, or from getting things needed for daily living? No 03/18/2024 Housing Stability Vital Sign Answer Shubham e Recorded In the last 12 months, was t here a time when you were not able to pay the mortgage or rent on time? No 03/18/2024 In the last 12 months, how many places have you lived? 1 03/18/2024 In the last 12 months, was t here a time when you did not have a steady place to sleep or slept in a fpc (including now)? No 03/18/2024 Personal Safety Answer Date Recorded Have you ever been in or are you currently in a harmful physical or emotional relationship or is someone making you feel afraid or unsafe? Denies 05/19/2024 Comments No Sex and Gender Information Value Date Recorded Sex Assigned at Not on file Legal Sex Female 2:25 AM TRESTLEMAN Gender Identity Not on file Sexual Orientation Not on file Obstetrics History Last Filed Vital Signs Vital Sign Reading Time Taken Comments Blood Pressure 150/100 05/19/2024 11:30 PM CDT Pulse 77 05/20/2024 12:10 AM CDT Temperature 36.7 C (98.1 F) 05/19/2024 6:58 PM CDT Respiratory Rate 27 05/20/2024 12:10 AM CDT Oxygen Saturation 92% 05/20/2024 12:10 AM CDT Inhaled Oxygen Concentration - - Weight 88.1 kg (194 lb 3.6 oz) 05/19/2024 6:58 P M CDT Height 165.1 cm (5' 5 ) 05/19/2024 5:24 PM CDT Body Mass Index 32.32 05/19/2024 5:24 PM CDT Plan of Treatment Health Maintenance Due Date Last Done Comments Depression Screening 1945 Osteoporosis Screening-Bone Density Scan 1945 Hepatitis B Screening 1963 Well Visit 65+ 2010 Zoster Vaccine (2 of 3) 01/29/2014 12/04/2013 Influenza Vaccine (#1) 2024 , 09/02/2021, 09/25/2019, Additional history exists Fall Risk Assessment 03/20/2025 03/20/2024 DTaP/Tdap/Td Vaccine (3 - Td or Tdap) 07/04/2026 07/04/2016, 10/17/2006 Pneumococcal vaccine 65+ Completed 09/06/2017, 12/2011 Hepatitis C Screening Completed 03/18/2024 , 04/18/2023, 09/01/2021, Additional history exists Procedures Procedure Name Priority Date/Time Associated Diagnosis Comments HEPATITIS PANEL, ACUTE Routine 03/18/2024 10:10 AM CDT from Last 3 Months or Most Recently Relevant to Health Maintenance Results * Hepatitis panel, acute Blood (03/18/2024 10:10 AM CDT) Hep A IgM Nonreactive Nonreactive Comment: Interpretive Data: If Hep A IgM Ab is reported as Equivocal, a new sample should be drawn in two weeks for testing. Current interpretive data was last revised on 20. Hep B core IgM Nonreactive Nonreactive [facility] Comment: Interpretive Data If HepB Core IgM Ab is reported as Equivocal, a new sample should be drawn in two weeks for testing. Current interpretive data was last revised on 20. Hep C Ab Nonreactive Nonreactive [facility] Comment: Antibodies to HCV not detected. Does NOT exclude the possibility of recent exposure to HCV. Current interpretive data was last revised on 22 Interpretive Data Nonreactive: Antibodies to HCV not detected. Does NOT exclude the possibility of recent exposure to HCV. Equivocal: Equivocal for HCV antibodies. Supplemental molecular testing will be automatically performed to determine infection status in accordance with current CDC screening recommendations. Reactive: Positive for HCV antibodies. This may represent current or past HCV infection. Supplemental molecular testing will be automatically performed to determine current infection status in accordance with current CDC screening recommendations. Interpretive data was last revised on 2020. HepBsAg Nonreactive Nonreactive [facility] Blood 03/18/2024 10:1 0 AM CDT 03/18/2024 12:38 PM CDT Florinda Atkinson MD LAB MICROBIOLOGY - GENERAL ORDER FERNANDO Final Result [facility] [address] [facility] Department [place] [address] from Last 3 Months or Most Recently Relevant to Health Maintenance Insurance MEDICARE [facility] MEDICARE [place] [employer] MEDICARE [employer] Advance Directives For more information, please contact: [phone] * Full Code (Latest Code Status on File) Date Activated Date Inactivated Comments 03/17/2024 11:29 PM 03/20/2024 9:21 PM * Full Code Date Activated Date Inactivated Comments 04/18/2023 5:37 PM 04/20/2023 6:38 PM * Full Code Date Activated Date Inactivated Comments 11/14/2022 7:41 PM 11/15/2022 10:07 PM * Full Code Date Activated Date Inactivated Comments 08/31/2021 5:07 AM 09/02/2021 9:50 PM Care Teams Learning Support Aide Relationship Specialty Start Date End Date Bayron Rich MD [address] [facility] [id number] [place] [address] PCP - General 05/03/24
--- OUTSIDE RECORDS SUMMARY | 2025-02-03 15:58 | XMS_ITS | Clinical Summary ---
Author Organization [facility] [address] [place] [address] Address [address] [place] [address] Care Team Providers Care Web Offset Press Feeder Name Role Phone Fabiano Marti SAJI Primary Care Provider [phone] Allergies Active Allergy Reactions Criticality Noted Date Comments Buspirone Unknown 01/27/2019 Celecoxib Unknown 01/27/2019 Medications amitriptyline (ELAVIL) 25 mg tablet Take 25 mg by mouth daily at bedtime. Active aspirin (ECOTRIN EC) 81 mg Tablet, Delayed Release (E.C.) Take 81 mg by mouth daily. Active saliva stimulant combo #2 (BIOTENE) Liquid 1 Squirt by Mouth/Throat route see administration instructions. Active fluticasone propionate (FLONASE) 50 mcg/spray [place], Suspension nasal inhaler Administer 2 Sprays in each nostril daily. Active Irbesartan (AVAPRO) 300 mg tablet Take 300 mg by mouth daily at bedtime. Active montelukast (SINGULAIR) 10 mg tablet Take 10 mg by mouth daily at bedtime. Active nitroglycerin (NITROSTAT) 0.4 mg Tablet, Sublingual Place 0.4 mg under tongue every 5 minutes as needed for Chest Pain. Active oxybutynin chloride (DITROPAN) 5 mg tablet Take 5 mg by mouth 3 times daily. Active PARoxetine HCl (PAXIL) 30 mg tablet Take 30 mg by mouth daily. Active cholecalcifero l 50,000 unit Capsule Take by mouth. Activ e ALPRAZolam (XANAX) 0.25 mg tablet Take 0.25 mg by mouth nightly as needed for Anxiety. Active Family History Medical History Relation Name Comments Cancer Brother Cancer Father Alzheimer's Disease Mother Relation Name Status Comments Brother prostate Father lung ca Mother Parkinson's Social History Tobacco Use Types Packs/Day Years Used Date Smoking Tobacco: Never Assessed Comments Unknown Sex and Gender Information Value Date Recorded Sex Assigned at Not on file Legal Sex Female 9:43 PM CDT Gender Identity Not on file Sexual Orientation Not on file Plan of Treatment Health Maintenance Due Date Last Done Comments DTAP/TDAP/TD VACCINES (1 - Tdap) 1964 PNEUMOCOCCAL VACCINE 50+ YEARS (1 of 1 - PCV) 10/23/19 95 ZOSTER VACCINE (1 of 2) 1995 OSTEOPOROSIS SCREENING 2010 RSV VACCINE (60+ or ) (1 - 1-dose 75+ series) 2020 INFLUENZA VACCINE (#1) 2024 Insurance MEDICARE PART A AND B [employer] ACCESS/TRUE investUP PPO Care Teams Web Offset Press Feeder Relationship Specialty Start Date End Date Marti Mario ANP [address] [id number] PCP - General NURSE PRACTITIONER 12/30/18
--- OUTSIDE RECORDS SUMMARY | 2025-02-03 15:58 | XMS_ITS | Encounter Summary ---
Author Organization [facility] Healthcare Address [address] [place] [address] Care Team Providers Care Domestic Cleaner Name Role Phone Carl Estrada MD Primary Care Provider Lizbeth Barros RN Unavailable Marti Mario NP Primary Care Provider [phone] Bayron Rich MD Primary Care Provider [phone] Encounter Details Date Type Department Care Team (Late st Contact Info) Description 01/24/[address] [facility] Primary Care Medicine Clinic [address] [facility] [address] [place] [address] Carl Estrada MD [address] [place], [place] [id number] Social History Tobacco Use Types Packs/Day Years Used Date Smoking Tobacco: Former Smokeless Tobacco: Never Alcohol Use Standard Drinks/Week Comments Yes 0 (1 standard drink = 0.6 oz pur e alcohol) Social Connection and Isolat ion Panel [NHANES] Answer Date Recorded In a typical week, how many times do you talk on the phone with family, friends, or neighbors? Three times a week 11/16/2022 How often do you get togethe r with friends or relatives? Three times a week 11/16/2022 How often do you attend chur or samaritan services? More than 4 times per year 11/16/2022 Do you belong to any clubs o r organizations such as sabianism groups, unions, fraternal or athletic groups, or school groups? No 11/16/2022 How often do you attend meet ings of the clubs or organizations you belong to? Never 11/16/2022 Are you , , di vorced, , never , or living with a partner? 11/16/2022 AUDIT-C Answer Date Recorded Q1: How often [...] medical care, and heating? Not very hard 11/16/2022 Hunger Vital Sign Answer Date Recorded Within the past 12 months, y ou worried that your food would run out before you got the money to buy more. Never true 11/16/19 23 Within the past 12 months, t he food you bought just didn't last and you didn't have money to get more. Never true 11/16/2022 PRAPARE - Transportation Answer Date Re corded In the past 12 months, has l ack of transportation kept you from medical appointments or from getting medications? No 03/2023 In the past 12 months, has l ack of transportation kept you from meetings, work, or from getting things needed for daily living? No 11/16/2022 Housing Stability Vital Sign Answer Shubham e Recorded In the last 12 months, was t here a time when you were not able to pay the mortgage or rent on time? No 11/16/2022 In the last 12 months, how many places have you lived? 1 11/16/2022 In the last 12 months, was t here a time when you did not have a steady place to sleep or slept in a jail (including now)? No 11/16/2022 Comments No Sex and Gender Information Value Date Recorded Sex Assigned at Not on file Legal Sex Female 2:25 AM MEDICAL SPECIALIST Gender Identity Not on file Sexual Orientation Not on file documented as of this encounter Plan of Treatment Not on file documented as of this encounter Visit Diagnoses Not on filedocumented in this encounter Additional Health Concerns Infection Onset Date Last Indicated Resolved Time COVID: Suspected 03/17/2024 03/17/2024 03/17/2024 4:30 PM CDT COVID: Suspected 03/18/2024 03/18/2024 03/18/2024 6:52 PM CDT COVID: Suspected 05/19/2024 05/19/2024 05/19/2024 6:23 PM CDT COVID19 05/19/2024 05/19/2024 05/29/2024 3:05 AM CDT documented as of this encounter Care Teams Domestic Cleaner Relationship Specialty Start Date End Date Carl Estrada MD PCP - General Internal Medicine 12/12/22 03/16/24 Marti Mario NP [address] [place] [address] PCP - General Nurse Practitioner 03/17/24 05/02/24 Bayron Rich MD [address] [id number] [place] [address] PCP - General 05/03/24 Lizbeth Barros, RN [address] [facility] [address] [place] [address] SHOP Outpatient Machine Precision Etcher 04/23/23 05/17/23 documented as of this encounter
--- OUTSIDE RECORDS SUMMARY | 2025-02-03 15:58 | XMS_ITS | Encounter Summary ---
Author Organization [facility] Healthcare Address [address] [place] [address] Care Team Providers Care Professor Of Business Administration Name Role Phone Carl Estrada MD Primary Care Provider Lizbeth Barros RN Unavailable Marti Mario NP Primary Care Provider [phone] Bayron Rich MD Primary Care Provider [phone] Encounter Details Date Type Department Care Team (Late st Contact Info) Description 01/04/2023 Telephone [facility] Primary Care Medicine Clinic [address] [facility] [address] [place] [address] Carl Estrada MD [address] [place], [place] [id number] Social History Tobacco Use Types Packs/Day Years [...] How often do you attend chur or christianity services? More than 4 times per year 11/16/2022 Do you belong to any clubs o r organizations such as mormon groups, unions, fraternal or athletic groups, or [...] place to sleep or slept in a intermediate (including now)? No 11/16/2022 Comments No Sex and Gender Information Value Date Recorded Sex Assigned at Not on file Legal Sex Female 2:25 AM PUPPY WALKER Gender Identity Not on file Sexual Orientation [...] documented as of this encounter Care Teams Professor Of Business Administration Relationship Specialty Start Date End Date Carl Estrada MD PCP - General Internal Medicine 12/12/22 03/16/24 Marti Mario NP [address] [place] [address] PCP - General Nurse Practitioner 03/17/24 05/02/24 Bayron Rich MD [address] [facility] [phone] [place] [address] PCP - General 05/03/24 Lizbeth Barros, RN [address] [facility] [address] [place] [address] SHOP Outpatient Demand Generation Manager 04/23/23 05/17/23 documented as of this encounter
--- OUTSIDE RECORDS SUMMARY | 2025-02-03 15:58 | XMS_ITS | Encounter Summary ---
Author Organization [facility] Address [address] [place] [address] Care Team Providers Care Cut Off Machine Unloader Name Role Phone Unavailable Primary Care Provider Unavailabl e Encounter Details Date Type Department Care Team (Late st Contact Info) Description 12/04/2024 Lab Requisition [facility] - DermPath Lab [address] [facility] [place] [address] Ellen Lui MD [address] [facility] [address] [place] [address] Social History Tobacco Use Types Packs/Day Years Used Date Smoking Tobacco: Former Cigarettes 0.8 20 Smokeless Tobacco: Never Comments:quit 25 yrs ago Alcohol Use Standard Drinks/Week Comments Yes 0 (1 standard drink = 0.6 oz pur e alcohol) 1 per week Sex and Gender Information Value Date Recorded Sex Assigned at Not on file Gender Identity Female 09/28/2017 8:52 AM ALUMINA REFINERY OPERATOR Sexual Orientation Not on file documented as of this encounter Plan of Treatment Not on file documented as of this encounter Procedures Procedure Name Priority Date/Time Associated Diagnosis Comments DERMATOPATHOLOGY Routine 12/04/2024 4:49 PM ALUMINA REFINERY OPERATOR documented in this encounter Results * DERMATOPATHOLOGY (12/04/2024 4:49 PM ALUMINA REFINERY OPERATOR) Case Report Dermatopathology Report Case: [id number] Authorizing Provider: Ellen Lui MD Collected: 12/04/2024 04:49 PM Ordering Location: [facility] - Received: 12/05/2024 01:41 PM DermPath Lab Pathologist: Cynthia Hernandez MD Specimen: Skin, left low leg 1:29 PM [facility] DERMATOPATHOLOGY LABORATORY Final Diagnosis Specimen A. SKIN, left low leg: ACTINIC KERATOSES, MULTIFOCAL (L57.0) DERMAL SCAR RESIDUAL SQUAMOUS CELL CARCINOMA NOT IDENTIFIED (L90.5) 1:29 PM [facility] DERMATOPATHOLOGY LABORATORY Clinical History R/O BX proven SCCIS 1:29 PM [facility] DERMATOPATHOLOGY LABORATORY Gross Description Specimen A: Received is one formalin filled container labeled with the patient's name and designated left low leg.The specimen consists of an ellipse measuring [id number] mm and is oriented with the suture/notch at the 12 o'clock position labeled on the requisition as notch. The 12 to 6 o'clock margin is inked green. The 6 o'clock to 12 o'clock margin is inked red. The 12 o'clock tip is submitted in cassette 1. The 6 o'clock tip is submitted in cassette 2. The remainder of the ellipse is serially sectioned and submitted in cassettes 3 -5. Jar 0. 1:29 PM [facility] DERMATOPATHOLOGY LABORATORY Microscopic Description Specimen A. SKIN, left low leg: There are multiple foci of parakeratosis, and the lower half of the epidermis shows disorderly maturation of keratinocytes with nuclear pleomorphism. This lesion is present at the margin of the specimen. There are fibroblasts and collagen bundles oriented parallel to the skin surface. There are elongated blood vessels, some of which are oriented perpendicular to the skin surface. No residual squamous cell carcinoma is identified. 1:29 PM [facility] DERMATOPATHOLOGY LABORATORY Disclaimer An external and internal positive and negative controls are appropriate for the histochemical, immunohistochemical and immunofluorescence stain(s) in this case (if any), except where stated explicitly. The performance characteristics of the stain(s) cited in this report were developed and its performance characteristic determined by the Dermatopathology Laboratory at [facility], directed by Dr. Mateus Landaverde. These tests need not be, and therefore are not, approved by the [place] Food and Drug Administration. The tests are used for clinical purposes. Billing Codes Specimen Charges Stain Charges 81874 1 5 1:29 PM ALUMINA REFINERY OPERATOR DERMATOPATHOLOGY LABORATORY Embedded Images 5 1:29 PM ALUMINA REFINERY OPERATOR DERMATOPATHOLOGY LABORATORY Pathology/Cytolo gy TISSUE SPECIMEN FROM SKIN / Unknown 12/04/2024 4:49 PM ALUMINA REFINERY OPERATOR 12/05/2024 1:41 PM ALUMINA REFINERY OPERATOR Ellen Lui MD LAB - PATHOLOGY/CYTO LOGY ORDERABLES DERMATOPATHOLOGY LABORATORY [facility] - Department of Dermatology [facility] [address] [place] [address], [address] [phone] documented in this encounter Visit Diagnoses Not on filedocumented in this encounter
--- OUTSIDE RECORDS SUMMARY | 2025-02-03 15:58 | XMS_ITS | Continuity of Care Document ---
Author Organization [facility] Address [address] [place] [address] Phone Care Team Providers Care Anatomy And Physiology Instructor Name Role Phone [facility] Unavailable Unavail able Unavailable Unavailable Unavailable Advance Directives Directive Yes / No Effective Date File Name No Information Encounters Encounter Description Practice Location Reason(s) For Visit Diagnoses Date Provider Providers Copied on Encounter [facility], [address], [place], [place], [id number], [place] tel:[phone] [facility] No Information [facility] [address], [address], [place], [place], [id number] , [place]. tel:[phone] Referring Provider: Cricket Chua, [address], [place], [address]. tel:[phone] Family History Family Member Type Diagnosis Age At Onset No Information Payers Payer name Insurance type Covered green party ID Authoriza tion(s) No Information Social History Type Description Quantity Date Captured Comments Sex Female Smoking Status No Information Chief Complaint And Reason For Visit No Information Reason For Referral Reason For Referral No Information History Of Present Illness Encounter Date Complaint History Of Prese nt Illness No Information Functional Status Date Functional Assessmen t No Information Instructions Date Instruction Additional Infor mation No Information Assessments Type Assessment Date No Information Patient Care Teams Name Effective Dates (start - stop) Status Members No Information
--- OUTSIDE RECORDS SUMMARY | 2025-02-03 15:58 | XMS_ITS | Clinical Summary ---
Author Organization [facility] Address [address] [place] [address] Care Team Providers Care Hand Cloth Cutter Name Role Phone Unavailable Primary Care Provider Unavailabl e Source Comments [facility],non-owned Affiliates and Associated Physician Practices is amultiple site organization consisting of ambulatory clinics and hospital sitesin [place], [place], [place] and [place]. This disclosure is being madepursuant to the Care Everywhere program and may not contain all information available regarding this patient. Last updated 18.[facility] Allergies Active Allergy Reactions Criticality Noted Date Comments Buspirone Nausea and/or Vomiting 08/12/2015 Celecoxib Other 08/12/2015 Codeine Anaphylaxis High 08/12/2015 Latex Rash Low 08/12/2015 Benazepril Cough 08/12/2015 Nbkaaprx-Djgtqqukst-Gspvarzna Other 2014 Rofecoxib Other 08/12/2015 Medications * Be aware that medications may not be up to date on this document. Alwaysverify current medications with the patient. Medication Sig Dispensed Refills Start Date End Date Status ALPRAZolam (XANAX) 0.25 MG tablet Take 0.25 mg by mouth 3 times daily as needed for Anxiety Active aspirin (ASPIRIN) 81 MG tablet Take 81 mg by mouth once daily Active diphenhydrAMINE (BENADRYL) 25 MG capsule Take 25 mg by mouth every 4 hours as needed for Itching Active biotin 2.5 MG tablets Take 2.5 mg by mouth once daily Active clopidogrel (PLAVIX) 75 MG tablet Take 75 mg by mouth once daily Active Boswellia-Glucosami ne-Vit D (GLUCOSAMINE COMPLEX PO) Reported on 01/29/2017 Ac tive hydrocodone-acetami nophen (NORCO) 5-325 MG tablet Take 1 Tab by mouth every 4 hours as needed for Pain Active irbesartan (AVAPRO) 300 MG tablet Take 300 mg by mouth once daily Active montelukast (SINGULAIR) 10 MG tablet Take 10 mg by mouth at bedtime Active nitroGLYCERIN (NITROSTAT) 0.4 MG tablet Dissolve 0.4 mg under the tongue every 5 minutes as needed for Angina Active acetaminophen (TYLENOL) 500 MG tablet Take 500 mg by mouth every 4 hours as needed for Fever or Pain Maximum allowable Acetaminophen amount = 4 Grams (4000 mg) / 24 hours. Active Ergocalciferol (VITAMIN D2 PO) Take 50,000 Caps by mouth every 7 days Active clobetasol (TEMOVATE) 0.05 % ointment 01/27/2017 Active imiquimod (ALDARA) 5 % cream 01/25/2017 Active Elastic Bandages & Supports (TENNIS ELBOW STRAP/GEL PAD) MISC Use 1 Packet once daily 1 Each 01/29/2017 Active Active Problems No known active problems Encounters Date Type Department Care Team Description 12/04/2024 Lab Requisition [facility] - DermPath Lab [address] [place] [phone] Ellen Lui MD 11/20/2024 Lab Requisition [facility] - DermPath Lab [address] [place] [phone] Ellen Lui MD from Last 3 Months Social History Tobacco Use Types Packs/Day Years Used Date Smoking Tobacco: Former Cigarettes 0.8 20 Smokeless Tobacco: Never Comments:quit 25 yrs ago Alcohol Use Standard Drinks/Week Comments Yes 0 (1 standard drink = 0.6 oz pur e alcohol) 1 per week Sex and Gender Information Value Date Recorded Sex Assigned at Not on file Gender Identity Female 09/28/2017 8:52 AM FOUNDRY METALLURGIST Sexual Orientation Not on file Last Filed Vital Signs Vital Sign Reading Time Taken Comments Blood Pressure 135/60 09/28/2017 9:33 AM FOUNDRY METALLURGIST Pulse 60 09/28/2017 9:33 AM FOUNDRY METALLURGIST Temperature - - Respiratory Rate 16 09/28/2017 9:33 AM FOUNDRY METALLURGIST Oxygen Saturation 97% 09/28/2017 9:33 AM FOUNDRY METALLURGIST Inhaled Oxygen Concentration - - Weight 85.7 kg (189 lb) 09/28/2017 9:33 AM FOUNDRY METALLURGIST Height 167.6 cm (5' 6 ) 01/29/2017 10:18 AM CDT Body Mass Index 30.51 01/29/2017 10:18 AM CDT Plan of Treatment Health Maintenance Due Date Last Done Comments BONE DENSITY TESTING 1945 MEDICARE AWV 12 MONTHS 1945 DTAP/TDAP/TD VACCINES (1 - Tdap) 1964 PNEUMOCOCCAL VACCINE 50+ (1 of 1 - PCV) 1995 ZOSTER VACCINE (1 of 2) 1995 Respiratory Syncytial Virus (RSV) Vaccine Pt: or over 60 yrs (1 - 1-dose 75+ series) 2020 COVID-19 VACCINE (1 - season) 2024 INFLUENZA VACCINE (#1) 2024 9, 09/17/2018, 09/16/2018, Additional history exists DEPRESSION SCREENING 11/12/2024 HEPATITIS B VACCINE Aged Out No longe r eligible based on patient's age to complete this topic HIB VACCINE Aged Out No longer eligi ble based on patient's age to complete this topic HPV VACCINE Aged Out No longer eligi ble based on patient's age to complete this topic MENINGOCOCCAL (Group B) VACCINE SHARED DECISION-MAKING Aged Out No longer eligible based on patient's age to complete this topic MENINGOCOCCAL GROUPS A/C/Y/W VACCINE Aged Out No longer eligible based on patient's age to complete this topic Procedures Procedure Name Priority Date/Time Associated Diagnosis Comments DERMATOPATHOLOGY Routine 12/04/2024 4:49 PM FOUNDRY METALLURGIST DERMATOPATHOLOGY Routine 11/20/2024 3:10 PM FOUNDRY METALLURGIST from Last 3 Months Results * DERMATOPATHOLOGY (12/04/2024 4:49 PM FOUNDRY METALLURGIST) Only the most recent of2 resultswithin the time period is included. Case Report Dermatopathology Report Case: [id number] Authorizing Provider: Ellen Lui MD Collected: 12/04/2024 04:49 PM Ordering Location: [facility] - Received: 12/05/2024 01:41 PM DermPath Lab Pathologist: Cynthia Hernandez MD Specimen: Skin, left low leg 1:29 PM [facility] DERMATOPATHOLOGY LABORATORY Final Diagnosis Specimen A. SKIN, left low leg: ACTINIC KERATOSES, MULTIFOCAL (L57.0) DERMAL SCAR RESIDUAL SQUAMOUS CELL CARCINOMA NOT IDENTIFIED (L90.5) 1:29 PM [facility] DERMATOPATHOLOGY LABORATORY Clinical History R/O BX proven SCCIS 1:29 PM [facility] DERMATOPATHOLOGY LABORATORY Gross Description Specimen A: Received is one formalin filled container labeled with the patient's name and designated left low leg.The specimen consists of an ellipse measuring [id number] mm and is oriented with the suture/notch [...] cassettes 3 -5. Jar 0. 1:29 PM [facility] DERMATOPATHOLOGY LABORATORY Microscopic [...] squamous cell carcinoma is identified. 1:29 PM [facility] DERMATOPATHOLOGY LABORATORY Disclaimer An external and internal positive and negative controls are appropriate for the histochemical, immunohistochemical and immunofluorescence stain(s) in this case (if any), except where stated explicitly. The performance characteristics of the stain(s) cited in this report were developed and its performance characteristic determined by the Dermatopathology Laboratory at [facility], directed by Dr. Mateus Landaverde. These tests need not be, and therefore are not, approved by the [place] Food and Drug Administration. The tests are used for clinical purposes. Billing Codes Specimen Charges Stain Charges 20853 1 5 1:29 PM FOUNDRY METALLURGIST DERMATOPATHOLOGY LABORATORY Embedded Images 5 1:29 PM FOUNDRY METALLURGIST DERMATOPATHOLOGY LABORATORY Pathology/Cytolo gy TISSUE SPECIMEN FROM SKIN / Unknown 12/04/2024 4:49 PM FOUNDRY METALLURGIST 12/05/2024 1:41 PM FOUNDRY METALLURGIST Ellen Lui MD LAB - PATHOLOGY/CYTO LOGY ORDERABLES DERMATOPATHOLOGY LABORATORY [facility] - Department of Dermatology [facility] Medicine [address] [place] [address], [address] [phone] from Last 3 Months
--- OUTSIDE RECORDS SUMMARY | 2025-02-03 15:58 | XMS_ITS | Encounter Summary ---
Author Organization [facility] Healthcare Address [address] [place] [address] Care Team Providers Care Dining Service Inspector Name Role Phone Carl Estrada MD Primary Care Provider Marti Mario NP Primary Care Provider Bayron Rich MD Primary Care Provider [phone] Encounter Details Date Type Department Care Team (Late st Contact Info) Description 07/10/2023 Telephone [facility] Primary Care Medicine Clinic [address] [facility] [address] [address] [place] [address] Carl Estrada MD [facility] [address] [place] [address] Social History Tobacco Use Types Packs/Day Years [...] neighbors? More than three times a week 04/23/2023 How often do you get togethe r with friends or relatives? More than three times a week 04/23/2023 How often do you attend chur ch or moravian services? More than 4 times per year 04/23/2023 Do you belong to any clubs o r organizations such as lutheran groups, unions, fraternal or athletic groups, or school groups? No 04/23/2023 How often do you attend meet ings of the clubs or organizations you belong to? Never 04/23/2023 Are you , , di vorced, , never , or living with a partner? 04/23/2023 AUDIT-C Answer Date Recorded Q1: How often [...] medical care, and heating? Not very hard 04/23/2023 Hunger Vital Sign Answer Date Recorded Within the past 12 months, y ou worried that your food would run out before you got the money to buy more. Never true 04/27/20 23 Within the past 12 months, t he food you bought just didn't last and you didn't have money to get more. Never true 04/27/2023 PRAPARE - Transportation Answer Date Re corded In the past 12 months, has l ack of transportation kept you from medical appointments or from getting medications? No 04/12 In the past 12 months, has l ack of transportation kept you from meetings, work, or from getting things needed for daily living? No 04/23/2023 Housing Stability Vital Sign Answer Shubham e Recorded In the last 12 months, was t here a time when you were not able to pay the mortgage or rent on time? No 04/23/2023 In the last 12 months, how many places have you lived? 1 04/23/2023 In the last 12 months, was t here a time when you did not have a steady place to sleep or slept in a prison (including now)? No 04/23/2023 Comments No Sex and Gender Information Value Date Recorded Sex Assigned at Not on file Legal Sex Female 2:25 AM EAP SPECIALIST Gender Identity Not on file Sexual [...] documented as of this encounter Care Teams Dining Service Inspector Relationship Specialty Start Date End Date Carl Estrada MD PCP - General Internal Medicine 12/12/22 03/16/24 Marti Mario NP [address] [place] [address] PCP - General Nurse Practitioner 03/17/24 05/02/24 Bayron Rich MD [address] [facility] [phone] [place] [address] PCP - General 05/03/24 documented as of this encounter
--- OUTSIDE RECORDS SUMMARY | 2025-02-03 15:58 | XMS_ITS | Encounter Summary ---
Author Organization [facility] Address [address] [facility] [place] [address] Care Team Providers Care Battery Assembler Dry Cell Name Role Phone Jose Tian MD Unavailable [phone] Encounter Details Date Type Department Care Team (Late st Contact Info) Description 08/12/2019 Lab Requisition [facility] Derm[facility] Lab [address] [facility], [place] [address] Sonia Ibanez DO [address] [place] [address] Social History Tobacco Use Types Packs/Day Years Used Date Smoking Tobacco: Former Cigarettes 0.8 20 Smokeless Tobacco: Never Comments:quit 25 yrs ago Alcohol Use Standard Drinks/Week Comments Yes 0 (1 standard drink = 0.6 oz pur e alcohol) 1 per week Sex and Gender Information Value Date Recorded Sex Assigned at Not on file Gender Identity Female 09/28/2017 8:52 AM CATERPILLAR OPERATOR Sexual Orientation Not on file documented as of this encounter Plan of Treatment Not on file documented as of this encounter Procedures Procedure Name Priority Date/Time Associated Diagnosis Comments DERMATOPATHOLOGY Routine 08/11/2019 12:0 0 AM CDT documented in this encounter Results * DERMATOPATHOLOGY (08/11/2019 12:00 AM CDT) Case Report Dermatopathology Report Case: [id number] Authorizing Provider: Sonia Ibanez DO Collected: 08/11/2019 12:00 AM Ordering Location: [facility] Received: 08/12/2019 07:38 AM Pathologist: Alisha Monae MD Specimen: Skin, left anterior LE 1:42 PM CDT DERMATOPATHOLOGY LABORATORY Final Diagnosis Specimen A. SKIN, left anterior LE: STASIS DERMATITIS (L30.8) 1:42 PM T DERMATOPATHOLOGY LABORATORY Clinical History Pruritic pink papules/plaques. Stasis vs LP vs ACD vs other. 1:42 PM CDT DERMATOPATHOLOGY LABORATORY Gross Description Specimen A: Received is one formalin filled container labeled with the patient's name and designated left anterior LE. The specimen consists of a shave measuring [id number]. Jar 0. 1:42 PM CDT DERMATOPATHOLOGY LABORATORY Microscopic Description Specimen A. SKIN, left anterior LE: There is focal spongiosis. The dermis shows a sparse, perivascular lymphocytic infiltrate surrounding dilated, thick-walled vessels, which are increased in number. 1:42 PM CDT DERMATOPATHOLOGY LABORATORY Disclaimer An external and internal positive and negative controls are appropriate for the histochemical, immunohistochemical and immunofluorescence stain(s) in this case (if any), except where stated explicitly. The performance characteristics of the stain(s) cited in this report were developed and its performance characteristic determined by the Dermatopathology Laboratory at [facility], directed by Dr. Mateus Landaverde. These tests need not be, and therefore are not, approved by the [place] Food and Drug Administration. The tests are used for clinical purposes. Billing Codes Specimen Charges Stain Charges 10084 1 1:42 PM CDT DERMATOPATHOLOGY LABORATORY Embedded Images 1:42 PM CDT DERMATOPATHOLOGY LABORATORY Pathology/Cytolog y TISSUE SPECIMEN FROM SKIN / Unknown 08/11/2019 08/12/2019 7:38 AM CDT Sonia Ibanez DO LAB - PATHOLOGY/C YTOLOGY ORDERABLES DERMATOPATHOLOGY LABORATORY [facility] - Department of Dermatology [facility] [facility], 5th Floor Lab B [address] [phone] documented in this encounter Visit Diagnoses Not on filedocumented in this encounter Care Teams Battery Assembler Dry Cell Relationship Specialty Start Date End Date Jose Tian MD [address] [facility] [address] [place] [address] PCP - Attributed-MSSP 05/28/18 02/15/20 documented as of this encounter
--- OUTSIDE RECORDS SUMMARY | 2025-02-03 15:58 | XMS_ITS | Encounter Summary ---
Author Organization [facility] Address [address] [facility] [place] [address] Care Team Providers Care Cdl Company Flatbed Driver Name Role Phone Unavailable Primary Care Provider Unavailabl e Encounter Details Date Type Department Care Team (Late st Contact Info) Description 09/30/2024 Lab Requisition [facility] - DermPath Lab [address] [facility], [place] [address] Ellen Lui MD [address] [facility] [address] [place] [address] Social History Tobacco Use Types Packs/Day Years Used Date Smoking Tobacco: Former Cigarettes 0.8 20 Smokeless Tobacco: Never Comments:quit 25 yrs ago Alcohol Use Standard Drinks/Week Comments Yes 0 (1 standard drink = 0.6 oz pur e alcohol) 1 per week Sex and Gender Information Value Date Recorded Sex Assigned at Not on file Gender Identity Female 09/28/2017 8:52 AM CENTRAL OFFICE TECHNICIAN Sexual Orientation Not on file documented as of this encounter Plan of Treatment Not on file documented as of this encounter Procedures Procedure Name Priority Date/Time Associated Diagnosis Comments DERMATOPATHOLOGY Routine 09/30/2024 10:2 1 AM CENTRAL OFFICE TECHNICIAN documented in this encounter Results * DERMATOPATHOLOGY (09/30/2024 10:21 AM CENTRAL OFFICE TECHNICIAN) Case Report Dermatopathology Report Case: [id number] Authorizing Provider: Ellen Lui MD Collected: 09/30/2024 10:21 AM Ordering Location: [facility] - Received: 10/01/2024 07:30 AM DermPath Lab Pathologist: Pepito Landaverde MD Specimens: A) - Skin, left lower leg B) - Skin, left distal lateral leg 12:13 PM [facility] DERMATOPATHOLOGY LABORATORY Final Diagnosis Specimen A. 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 SKIN, left distal lateral leg: SQUAMOUS CELL CARCINOMA, WELL DIFFERENTIATED (C44.729) 12:13 PM [facility] DERMATOPATHOLOGY LABORATORY Clinical History A: R/O SCC, pink papule B: SCC vs DF, pink papule 12:13 PM [facility] DERMATOPATHOLOGY LABORATORY Gross Description Specimen A: Received is one formalin filled container labeled with the patient's name and designated left lower leg. The specimen consists of a shave biopsy measuring 11x9x2 mm. Jar 0. Specimen B: Received is one formalin filled container labeled with the patient's name and designated left distal lateral leg. The specimen consists of a shave biopsy measuring 9x7x2 mm. Jar 0. 12:13 PM [facility] DERMATOPATHOLOGY LABORATORY Microscopic Description Specimen A. SKIN, left lower leg: The epidermis is acanthotic and shows full thickness disorderly maturation of keratinocytes, mitoses at different levels, and dyskeratotic cells. There is overlying parakeratosis and hyperkeratosis. Specimen B. SKIN, left distal lateral leg: Arising in the epidermis and extending into the dermis there are irregularly shaped aggregates of keratinocytes showing evidence of premature cornification. 12:13 PM [facility] DERMATOPATHOLOGY LABORATORY Disclaimer An external and internal positive and negative controls are appropriate for the histochemical, immunohistochemical and immunofluorescence stain(s) in this case (if any), except where stated explicitly. The performance characteristics of the stain(s) cited in this report were developed and its performance characteristic determined by the Dermatopathology Laboratory at [facility], directed by Dr. Mateus Landaverde. These tests need not be, and therefore are not, approved by the [place] Food and Drug Administration. The tests are used for clinical purposes. Billing Codes Specimen Charges Stain Charges 62597 70623 1 1 11/21/202 4 12:13 PM CENTRAL OFFICE TECHNICIAN DERMATOPATHOLOGY LABORATORY Embedded Images 4 12:13 PM CENTRAL OFFICE TECHNICIAN DERMATOPATHOLOGY LABORATORY Pathology/Cytology TISSUE SPECIMEN FROM SKIN / Unknown 09/30/2024 10:21 AM CENTRAL OFFICE TECHNICIAN 10/01/2024 7:30 AM CENTRAL OFFICE TECHNICIAN Miscellaneous samples (specimen) TISSUE SPECIMEN FROM SKIN / Unknown 09/30/2024 10:21 AM CENTRAL OFFICE TECHNICIAN 10/01/2024 7:30 AM CENTRAL OFFICE TECHNICIAN Ellen Lui MD LAB - PATHOLOGY/CYTO LOGY ORDERABLES DERMATOPATHOLOGY LABORATORY [facility] - Department of Dermatology [facility] Specialized Medicine [address] [place] [address], [address] [phone] documented in this encounter Visit Diagnoses Not on filedocumented in this encounter
--- OUTSIDE RECORDS SUMMARY | 2025-02-03 15:58 | XMS_ITS ---
Author Organization [facility] Address [address] [place] [address] Care Team Providers Care Television Agent Name Role Phone Bayron Rich MD Primary Care Provider [phone] Active Problems Problem Noted Date Diagnosed Date [...] B6. Assessment & Plan (12/12/2022 2:02 PM WATER GAS OPERATOR): [] Given phone number to make appointment [...] 08/31/2021 Overview (12/12/2022): History of HTN. On [id number] at home Assessment & Plan (12/12/2022 1:51 PM WATER GAS OPERATOR): [] Refileld irbesartan Assessment & Plan (08/31/2021 [...] boxes. Assessment & Plan (12/12/2022 1:53 PM WATER GAS OPERATOR): [] Provided extensive counseling in the office visit with an attending [] WIll continue current regimen. Assessment & Plan (08/31/2021 4:31 AM CDT): A/P: continue home paxil, low dose PRN alprazolam, TCA Coronary arteriosclerosis 04/28/2019 Overview (12/12/2022): Stent to LAD in 2013. On Aspirin monotherapy Assessment & Plan (12/12/2022 1:54 PM WATER GAS OPERATOR): [] Continue asa 81 and atorvastatin. Refills [...] disease Assessment & Plan (12/12/2022 2:00 PM WATER GAS OPERATOR): [] ccp sent [] Hand X rays today Fibromyalgia 01/07/2016 Inflamed seborrheic keratosis 12/24/2015 Ascending aortic aneurysm 06/25/2015 Overview (02/16/2017): Ascending aortic aneurysm Basal cell carcinoma (BCC) of lower extremity Venous stasis dermatitis 11/16/2014 Actinic keratosis 10/03/2013 Squamous cell carcinoma of skin of lower extremi ty 04/29/2012 Basal cell carcinoma (BCC) of skin of lip 2011 Skin neoplasm 03/26/2012 Current Treatment and Therapy Plans No current plan information found. Past Treatment and Therapy Plans No past plan information found. Lifetime Dose Tracking * Chemical Lifetime Dose Automatic Entry Manual Entr y DLP 3,502 mGycm 3,502 mGycm 0 mGycm Resolved Problems Problem Noted Date Diagnosed Date [...]
--- OUTSIDE RECORDS SUMMARY | 2025-02-03 15:59 | XMS_ITS | Referral Summary ---
Author Organization [facility] Address [address] [place] [address] Care Team Providers Care Rotor Plate Washer Name Role Phone Bayron Rich MD Primary Care Provider [phone] Allergies Active Allergy Reactions Criticality Noted Date [...] comments) High 03/18/2024 Elevated bili, LFTs, DILI Fvcnvjxq-Pdnsdewrly-Cslwv yxin Unknown,Hives Medium 08/12/2015 Neosporin (Neomycin-Polymyx) Hives [...] B6. Assessment & Plan (12/12/2022 2:02 PM CORPORATE STRATEGY INTERN): [] Given phone number to make appointment [...] 08/31/2021 Overview (12/12/2022): History of HTN. On [id number] at home Assessment & Plan (12/12/2022 1:51 PM CORPORATE STRATEGY INTERN): [] Refileld irbesartan Assessment & Plan (08/31/2021 [...] boxes. Assessment & Plan (12/12/2022 1:53 PM CORPORATE STRATEGY INTERN): [] Provided extensive counseling in the office visit with an attending [] WIll continue current regimen. Assessment & Plan (08/31/2021 4:31 AM CDT): A/P: continue home paxil, low dose PRN alprazolam, TCA Coronary arteriosclerosis 04/28/2019 Overview (12/12/2022): Stent to LAD in 2013. On Aspirin monotherapy Assessment & Plan (12/12/2022 1:54 PM CORPORATE STRATEGY INTERN): [] Continue asa 81 and atorvastatin. Refills [...] disease Assessment & Plan (12/12/2022 2:00 PM CORPORATE STRATEGY INTERN): [] ccp sent [] Hand X rays [...] Hig h Dose, Preservative Free, Intrr 12/12/2022,09/02/2021 Social History Tobacco Use Types Packs/Day Years Used Date Smoking Tobacco: Former Smokeless Tobacco: Never Alcohol Use Standard Drinks/Week Comments Yes 0 (1 standard drink = 0.6 oz pur e alcohol) [facility] Utilities Answer Date Recorded In the past 12 months has th e electric, gas, oil, or water company [...] often do you attend chur ch or amish services? More than 4 times per year 03/18/2024 Do you belong to any clubs o r organizations such as nondenominational groups, unions, fraternal or athletic groups, or [...] place to sleep or slept in a residential (including now)? No 03/18/2024 Personal Safety Answer Date Recorded Have you ever been in or are you currently in a harmful physical or emotional relationship or is someone making you feel afraid or unsafe? Denies 05/19/2024 Comments No Sex and Gender Information Value Date Recorded Sex Assigned at Not on file Legal Sex Female 2:25 AM CORPORATE STRATEGY INTERN Gender Identity Not on file Sexual Orientation Not on file Last Filed [...] 05/19/2024 5:24 PM CDT Plan of Treatment Not on file Procedures Procedure Name Priority Date/Time Associated Diagnosis [...] Hep B core IgM Nonreactive Nonreactive [facility] [place] Comment: Interpretive Data If HepB Core IgM [...] revised on 2020. HepBsAg Nonreactive Nonreactive [facility] Blood 03/18/2024 10:1 0 AM CDT 03/18/2024 12:38 PM CDT Florinda Atkinson MD LAB MICROBIOLOGY - GENERAL ORDER [place] Final Result [facility] [address] [facility] Department [place] [address] from Last 3 Months or Most Recently Relevant to Health Maintenance Insurance MEDICARE [facility] MEDICARE [facility] MEDICARE [employer] Advance Directives For more information, please contact: [phone] * Full Code (Latest Code Status on File) Date Activated Date Inactivated Comments 03/17/2024 11:29 PM 03/20/2024 9:21 PM * Full Code Date Activated Date Inactivated Comments 04/18/2023 5:37 PM 04/20/2023 6:38 PM * Full Code Date Activated Date Inactivated Comments 11/14/2022 7:41 PM 11/15/2022 10:07 PM * Full Code Date Activated Date Inactivated Comments 08/31/2021 5:07 AM 09/02/2021 9:50 PM Care Teams Rotor Plate Washer Relationship Specialty Start Date End Date Bayron Rich MD [address] [facility] [id number] [place] [address] PCP - General 05/03/24
[2025-02-03 19:54] LABS: Alanine Aminotransferase 18 U/L (6-35); Albumin Level 4.1 g/dL (3.5-5.1); Alkaline Phosphatase 118 U/L (38-126); Anion Gap 10 mmol/L (4-12); Aspartate Amino Transferase 46 U/L (14-36); Bilirubin,Total 0.6 mg/dL (0.2-1.3); Blood Urea Nitrogen 25 mg/dL (7-17); Calcium 9.3 mg/dL (8.4-10.2); Carbon Dioxide 27 mmol/L (22-30); Chloride 105 mmol/L (98-107); Cholesterol 149 mg/dL (0-200); Estimated Glomerular Filt Rate 49; Glucose 69 mg/dL (65-110); HDL Direct 52 mg/dL; Magnesium 2.2 mg/dL (1.6-2.3); Potassium 4.7 mmol/L (3.4-5.0); Sodium 142 mmol/L (137-145); Triglycerides 106 mg/dL (<150)
[2025-02-03 20:06] LABS: LDL Cholesterol Direct 61 mg/dL
== END 2025-02-03 13:43 | disposition home or self-care (01) ==
PROVIDERS: PCP Nurse Practitioner Adult Health; Visit Provider Nurse Practitioner Adult Health
DX: M16.0 Bilateral primary osteoarthritis of hip (principal); I10 Essential (primary) hypertension
CPT/HCPCS: 36415; 73521; 80053; 80061; 83735

== ENCOUNTER 2025-04-22 15:57 | Outpatient (CLI) | payer MEDICARE, BC, SELFPAY ==
--- NOTE | ~2025-04-22 | XR_ITS ---
[XR ribs BI 3V w CXR 2V ] INDICATION: Pleurodynia TECHNIQUE: Frontal projection of the upper right ribs, frontal projection of the lower right ribs, ob lique projection of all the right ribs, frontal inspiratory chest x-ray for interpretation. FINDINGS: There are no acute displaced rib fractures identified. There is a healed right fifth rib f racture. There are no soft tissue abnormality seen. The lungs are clear. 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 IMPRESSION: 1:No acute displaced rib fractures. Reviewed, dictated and finalized at location []
[2025-04-22 16:37] LABS: Basophils Absolute Auto 0.1 K/mm3 (0.0-0.1); Basophils Percent Auto 1.4 % (0.2-1.2); Eosinophils Absolute Auto 0.2 K/mm3 (0-0.3); Eosinophils Percent Auto 4.1 % (0-4.4); Hematocrit 38.2 % (37.0-47.0); Hemoglobin 12.4 g/dL (12.0-15.0); Immature Granulocyte Absolute 0.03 K/mm3 (0.00-0.031); Immature Granulocyte Percent A 0.5 % (0-0.5); Lymphocytes Absolute Auto 1.54 K/mm3 (0.9-3.2); Lymphocytes Percent Auto 27.5 % (18.3-44.2); Mean Corpuscular HGB Conc 32.5 g/dl (32-36); Mean Corpuscular Hemoglobin 31.2 pg (26-34); Mean Corpuscular Volume 96.2 fl (80-100); Mean Platelet Volume 11.2 fl (7.4-10.4); Monocytes Absolute Auto 0.7 K/mm3 (0.1-0.6); Monocytes Percent Auto 12.7 % (2.6-8.5); Neutrophils Percent Auto 53.8 % (45.5-73.1); Platelet Count Result 191 k/mm3 (150-375); Red Blood Count 3.97 M/mm3 (4.2-5.4); Red Cell Distribution Width 13.2 % (11.5-14.5); White Blood Count 5.6 K/mm3 (4.5-10.0)
[2025-04-22 16:57] LABS: Alanine Aminotransferase 32 U/L (6-35); Albumin Level 3.8 g/dL (3.5-5.1); Alkaline Phosphatase 119 U/L (38-126); Anion Gap 7 mmol/L (4-12); Aspartate Amino Transferase 38 U/L (14-36); Bilirubin,Total 0.7 mg/dL (0.2-1.3); Blood Urea Nitrogen 16 mg/dL (7-17); Carbon Dioxide 27 mmol/L (22-30); Chloride 107 mmol/L (98-107); Cholesterol 149 mg/dL (0-200); Estimated Glomerular Filt Rate 52; Glucose 99 mg/dL (65-110); HDL Direct 58 mg/dL; Potassium 3.9 mmol/L (3.4-5.0); Sodium 141 mmol/L (137-145); Total Protein 6.5 g/dL (6.3-8.2); Triglycerides 127 mg/dL (<150)
[2025-04-22 17:02] LABS: NT Pro B Type Natriuretic Pept 440 pg/mL (19.9-100)
[2025-04-22 17:09] LABS: LDL Cholesterol Direct 61 mg/dL
[2025-04-22 17:30] LABS: Total Triiodothyronine (T3) 1.09 NG/ML (0.82-1.58)
--- OUTSIDE RECORDS SUMMARY | 2025-04-22 17:57 | XMS_ITS | Encounter Summary ---
Author Organization [facility] Address [address] [facility] [place] [address] Care Team Providers Care Research Center Partner Name Role Phone Unavailable Primary Care Provider Unavailabl e Encounter Details Date Type Department Care Team (Late st Contact Info) Description 12/04/2024 Lab Requisition [facility] - DermPath Lab [address] [facility], [place] [address] Ellen Lui MD [address] [facility] [address] [place] [address] Social History Tobacco Use Types Packs/Day Years Used Date Smoking Tobacco: Former Cigarettes 0.8 20 Smokeless Tobacco: Never Comments:quit 25 yrs ago Alcohol Use Standard Drinks/Week Comments Yes 0 (1 standard drink = 0.6 oz pur e alcohol) 1 per week Comments No Sex and Gender Information Value Date Recorded Sex Assigned at Not on file Legal Sex Female 9:44 AM STRAP MACHINE OPERATOR AUTOMATIC Gender Identity Female 09/28/2017 8:52 AM STRAP MACHINE OPERATOR AUTOMATIC Sexual Orientation Not on file documented as of this encounter Plan of Treatment Not on file documented as of this encounter Procedures Procedure Name Priority Date/Time Associated Diagnosis Comments DERMATOPATHOLOGY Routine 12/04/2024 4:49 PM STRAP MACHINE OPERATOR AUTOMATIC documented in this encounter Results * DERMATOPATHOLOGY (12/04/2024 4:49 PM STRAP MACHINE OPERATOR AUTOMATIC) Case Report Dermatopathology Report Case: [id number] Authorizing Provider: Ellen Lui MD Collected: 12/04/2024 04:49 PM Ordering Location: [facility] - Received: 12/05/2024 01:41 PM DermPath Lab Pathologist: Cynthia Hernandez MD Specimen: Skin, left low leg 1:[address] [facility] DERMATOPATHOLOGY LABORATORY Final Diagnosis Specimen A. SKIN, left low leg: ACTINIC KERATOSES, MULTIFOCAL (L57.0) DERMAL SCAR RESIDUAL SQUAMOUS CELL CARCINOMA NOT IDENTIFIED (L90.5) 1:[address] [facility] DERMATOPATHOLOGY LABORATORY at [address] [facility] Clinical History R/O BX proven SCCIS 1:[address] [facility] DERMATOPATHOLOGY LABORATORY Gross Description Specimen A: Received is one formalin filled container labeled with the patient's name and designated left low leg.The specimen consists of an ellipse measuring 77u05i9 mm and is oriented with the suture/notch [...] cassettes 3 -5. Jar 0. 1:[address] [facility] DERMATOPATHOLOGY LABORATORY Microscopic Description Specimen [...] squamous cell carcinoma is identified. 1:[address] [facility] DERMATOPATHOLOGY LABORATORY Disclaimer An external and internal positive and negative controls are appropriate for the histochemical, immunohistochemical and immunofluorescence stain(s) in this case (if any), except where stated explicitly. The performance characteristics of the stain(s) cited in this report were developed and its performance characteristic determined by the Dermatopathology Laboratory at [facility], directed by Dr. Mateus Landaverde. These tests need not be, and therefore are not, approved by the [place] Food and Drug Administration. The tests are used for clinical purposes. Billing Codes Specimen Charges Stain Charges 68606 1 5 1:29 PM STRAP MACHINE OPERATOR AUTOMATIC DERMATOPATHOLOGY LABORATORY Embedded Images 5 1:29 PM STRAP MACHINE OPERATOR AUTOMATIC DERMATOPATHOLOGY LABORATORY Pathology/Cytolo gy TISSUE SPECIMEN FROM SKIN / Unknown 12/04/2024 4:49 PM STRAP MACHINE OPERATOR AUTOMATIC 12/05/2024 1:41 PM STRAP MACHINE OPERATOR AUTOMATIC Ellen Lui MD LAB - PATHOLOGY/CYTOLOGY ORD ERABLES Final Result DERMATOPATHOLOGY LABORATORY [facility] - Department of Dermatology [facility] Specialized Medicine [address] [place] [address], [address] [phone] documented in this encounter Visit Diagnoses Not on filedocumented in this encounter
--- OUTSIDE RECORDS SUMMARY | 2025-04-22 17:57 | XMS_ITS | Encounter Summary ---
Author Organization [facility] Address [address] [place] [address] Care Team Providers Care Fan Runner Name Role Phone Carl E[place] MD Primary Care Provider Lizbeth Barros RN Unavailable [phone] Marti Mario NP Primary Care Provider [phone] Bayron Rich MD Primary Care Provider [phone] Encounter Details Date Type Department Care Team (Late st Contact Info) Description 01/24/2023 Telephone [facility] Primary Care Medicine Clinic [address] [facility] [address] [place] [address] Carl [place] MD [address] [place], [place] [id number] Social History Tobacco Use Types Packs/Day Years [...] How often do you attend chur or judaism services? More than 4 times per year 11/16/2022 Do you belong to any clubs o r organizations such as congregation groups, unions, fraternal or athletic groups, or [...] place to sleep or slept in a fci (including now)? No 11/16/2022 Comments No Sex and Gender Information Value Date Recorded Sex Assigned at Not on file Legal Sex Female 2:25 AM STANDARDS ENGINEER Gender Identity Not on file Sexual Orientation [...] documented as of this encounter Care Teams Fan Runner Relationship Specialty Start Date End Date Carl [place] MD PCP - General Internal Medicine 12/12/22 03/16/24 Marti Mario NP [address] [place] [address] PCP - General Nurse Practitioner 03/17/24 05/02/24 Bayron Rich MD [address] [facility] [id number] [place] [address] PCP - General 05/03/24 Lizbeth Barros, RN [address] [facility] [address] [place] [address] SHOP Outpatient Duplicator Punch Operator 04/23/23 05/17/23 documented as of this encounter
--- OUTSIDE RECORDS SUMMARY | 2025-04-22 17:57 | XMS_ITS | Clinical Summary ---
Author Organization [facility] Address [address] [facility] [place] [address] Care Team Providers Care Property And Casualty Insurance Agent Name Role Phone Unavailable Primary Care Provider Unavailabl e Source Comments [facility],non-owned Affiliates and Associated Physician Practices is amultiple site organization consisting of ambulatory clinics and hospital sitesin [place], [place], [place] and [place]. This disclosure is being madepursuant to the Care Everywhere program and may not contain all information available regarding this patient. Last updated 18.[facility] Allergies Active Allergy Reactions Criticality Noted Date Comments Buspirone Nausea and/or Vomiting 08/12/2015 Celecoxib Other 08/12/2015 Codeine Anaphylaxis High 08/12/2015 Latex Rash Low 08/12/2015 Benazepril Cough 08/12/2015 Ardfhluw-Nzbsrvakqs-Qavkiuchk Other 2014 Rofecoxib Other 08/12/2015 Medications * Be aware that medications may not be up to date on this document. Alwaysverify current medications with the patient. ALPRAZolam (XANAX) 0.25 MG tablet Take 0.25 mg by mouth 3 times daily as needed for Anxiety Active aspirin (ASPIRIN) 81 MG tablet Take 81 mg by mouth once daily Active diphenhydrAMIN E (BENADRYL) 25 MG capsule Take 25 mg by mouth every 4 hours as needed for Itching Active biotin 2.5 MG tablets Take 2.5 mg by mouth once daily Active clopidogrel (PLAVIX) 75 MG tablet Take 75 mg by mouth once daily Active Boswellia-Gluc osamine-Vit D (GLUCOSAMINE COMPLEX PO) Reported on 01/29/2017 Active hydrocodone-ac etaminophen (NORCO) 5-325 MG tablet Take 1 Tab [...] days Active clobetasol (TEMOVATE) 0.05 % ointment 7 Active imiquimod (ALDARA) 5 % cream 7 Active Elastic Bandages & Supports (TENNIS ELBOW STRAP/GEL PAD) MISC Use 1 Packet once daily 1 Each 7 Active Active Problems No known active problems Social History Tobacco Use Types Packs/Day Years Used Date Smoking Tobacco: Former Cigarettes 0.8 20 Smokeless Tobacco: Never Comments:quit 25 yrs ago Alcohol Use Standard Drinks/Week Comments Yes 0 (1 standard drink = 0.6 oz pur e alcohol) 1 per week Comments No Sex and Gender Information Value Date Recorded Sex Assigned at Not on file Legal Sex Female 9:44 AM ELECTRONICS TEACHER Gender Identity Female 09/28/2017 8:52 AM ELECTRONICS TEACHER Sexual Orientation Not on file Last Filed Vital Signs Vital Sign Reading Time Taken Comments Blood Pressure 135/60 09/28/2017 9:33 AM ELECTRONICS TEACHER Pulse 60 09/28/2017 9:33 AM ELECTRONICS TEACHER Temperature - - Respiratory Rate 16 09/28/2017 9:33 AM ELECTRONICS TEACHER Oxygen Saturation 97% 09/28/2017 9:33 AM ELECTRONICS TEACHER Inhaled Oxygen Concentration - - Weight 85.7 kg (189 lb) 09/28/2017 9:33 AM ELECTRONICS TEACHER Height 167.6 cm (5' 6) 01/29/2017 10:18 AM CDT Body Mass Index [...] - 1-dose 75+ series) 2020 COVID-19 VACCINE ( - season) 2024 DEPRESSION SCREENING 11/12/2024 INFLUENZA VACCINE (Season Ended) 2025 09/25/2019, 09/17/2018, 09/16/2018, Additional history exists HEPATITIS B VACCINE Aged Out No longe [...] on patient's age to complete this topic Insurance MEDICARE [facility]
--- OUTSIDE RECORDS SUMMARY | 2025-04-22 17:57 | XMS_ITS | Encounter Summary ---
Author Organization [facility] Address [address] [facility] [place] [address] Care Team Providers Care Supervisor [employer] Name Role Phone Jose Tian MD Unavailable [phone] Encounter Details Date Type Department Care Team (Late st Contact Info) Description 08/12/2019 Lab Requisition [facility] Care DermPath Lab [address] [facility], [place] [address] Sonia Ibanez DO [address] [facility] 3 [place] [address] Social History Tobacco Use Types Packs/Day Years Used Date Smoking Tobacco: Former Cigarettes 0.8 20 Smokeless Tobacco: Never Comments:quit 25 yrs ago Alcohol Use Standard Drinks/Week Comments Yes 0 (1 standard drink = 0.6 oz pur e alcohol) 1 per week Comments No Sex and Gender Information Value Date Recorded Sex Assigned at Not on file Legal Sex Female 9:44 AM HOSPITAL CODER Gender Identity Female 09/28/2017 8:52 AM HOSPITAL CODER Sexual Orientation Not on file documented as of this encounter Plan of Treatment Not on file documented as of this encounter Procedures Procedure Name Priority Date/Time Associated Diagnosis Comments DERMATOPATHOLOGY Routine 08/11/2019 12:0 0 AM CDT documented in this encounter Results * DERMATOPATHOLOGY (08/11/2019 12:00 AM CDT) Case Report Dermatopathology Report Case: [id number] Authorizing Provider: Sonia Ibanez DO Collected: 08/11/2019 12:00 AM Ordering Location: [facility] DermPath Lab Received: 08/12/2019 07:38 AM Pathologist: Alsiha Monae MD Specimen: Skin, left anterior LE 1:42 PM CDT DERMATOPATHOLOGY LABORATORY Final Diagnosis Specimen A. SKIN, left anterior LE: STASIS DERMATITIS (L30.8) 1:42 PM CDT DERMATOPATHOLOGY LABORATORY at 1342 CDT Clinical History Pruritic pink papules/plaques. Stasis vs LP vs ACD vs other. 1:42 PM CDT DERMATOPATHOLOGY LABORATORY Gross Description Specimen A: Received is one formalin filled container labeled with the patient's name and designated left anterior LE. The specimen consists of a shave measuring [id number]. Jar 0. 1:42 PM CDT DERMATOPATHOLOGY LABORATORY [...] characteristic determined by the Dermatopathology Laboratory at [facility], directed by Dr. Mateus Landaverde. These tests need not be, and therefore are not, approved by the [place] Food and Drug Administration. The tests are used for clinical purposes. Billing Codes Specimen Charges Stain Charges 60859 1 1:42 PM CDT DERMATOPATHOLOGY LABORATORY Embedded Images 1:42 PM CDT DERMATOPATHOLOGY LABORATORY Pathology/Cytolog y TISSUE SPECIMEN FROM SKIN / Unknown 08/11/2019 08/12/2019 7:38 AM CDT us Sonia Ibanez DO LAB - PATHOLOGY/CYTOLOGY ORDERABLES Final Result DERMATOPATHOLOGY LABORATORY [facility] - Department of Dermatology [address] [facility], 5th Floor Lab B [address] [phone] documented in this encounter Visit Diagnoses Not on filedocumented in this encounter Care Teams Supervisor [employer] Relationship Specialty Start Date End Date Jose Tian MD [address] [facility] [address] [place] [address] PCP - Attributed-MSSP 05/28/18 02/15/20 documented as of this encounter
--- OUTSIDE RECORDS SUMMARY | 2025-04-22 17:57 | XMS_ITS | Encounter Summary ---
Author Organization [facility] Address [address] [facility] [place] [address] Care Team Providers Care Sales Assistant Name Role Phone Unavailable Primary Care Provider Unavailabl e Encounter Details Date Type Department Care Team (Late st Contact Info) Description 11/20/2024 Lab Requisition [facility] - DermPath Lab [address] [facility], [place] [address] Ellen Lui MD [address] [facility] 3 [place] [address] Social History Tobacco Use Types Packs/Day Years Used Date Smoking Tobacco: Former Cigarettes 0.8 20 Smokeless Tobacco: Never Comments:quit 25 yrs ago Alcohol Use Standard Drinks/Week Comments Yes 0 (1 standard drink = 0.6 oz pur e alcohol) 1 per week Comments No Sex and Gender Information Value Date Recorded Sex Assigned at Not on file Legal Sex Female 9:44 AM SPANISH LECTURER Gender Identity Female 09/28/2017 8:52 AM SPANISH LECTURER Sexual Orientation Not on file documented as of this encounter Plan of Treatment Not on file documented as of this encounter Procedures Procedure Name Priority Date/Time Associated Diagnosis Comments DERMATOPATHOLOGY Routine 11/20/2024 3:10 PM SPANISH LECTURER documented in this encounter Results * DERMATOPATHOLOGY (11/20/2024 3:10 PM SPANISH LECTURER) Case Report Dermatopathology Report Case: [id number] Authorizing Provider: Ellen Lui MD Collected: 11/20/2024 03:10 PM Ordering Location: [facility] - Received: 11/24/2024 01:32 PM DermPath Lab Pathologist: Pepito Landaverde MD Specimen: Skin, left distal lateral leg 3:27 PM [facility] DERMATOPATHOLOGY LABORATORY Amended Report At the request of the clinician's office, the 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 At the request of the clinician's office, the site is changed from Left distal leg to Left distal lateral leg 3:27 PM [facility] DERMATOPATHOLOGY LABORATORY Final Diagnosis Specimen A. 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) NOT PRESENT AT MARGIN 3:27 PM SPANISH LECTURER DERMATOPATHOLOGY LABORATORY Amendment electronically signed by Pepito Landaverde MD on 12/03/2024 at 1527 SPANISH LECTURER Amendment electronically signed by Pepito Landaverde MD on 11/28/2024 at 1656 SPANISH LECTURER at 1628 SPANISH LECTURER Clinical History SCC 3:27 PM [facility] DERMATOPATHOLOGY LABORATORY Gross Description Specimen A: Received is one formalin filled container labeled with the patient's name and designated left distal lateral leg.The specimen consists of an ellipse measuring [id number] mm and is oriented with the suture/notch [...] cassettes 3 -4. Jar 0. 3:27 PM [facility] DERMATOPATHOLOGY LABORATORY Microscopic Description Specimen A. SKIN, left distal lateral leg: The epidermis shows parakeratosis, full thickness disorderly maturation of keratinocytes, mitoses at different levels, and dyskeratotic cells. This lesion is not present at the margin of the specimen. 3:27 PM [facility] DERMATOPATHOLOGY LABORATORY Disclaimer An external and internal positive and negative controls are appropriate for the histochemical, immunohistochemical and immunofluorescence stain(s) in this case (if any), except where stated explicitly. The performance characteristics of the stain(s) cited in this report were developed and its performance characteristic determined by the Dermatopathology Laboratory at [facility], directed by Dr. Mateus Landaverde. These tests need not be, and therefore are not, approved by the [place] Food and Drug Administration. The tests are used for clinical purposes. Billing Codes Specimen Charges Stain Charges 47784 1 5 3:27 PM SPANISH LECTURER DERMATOPATHOLOGY LABORATORY Embedded Images 5 3:27 PM SPANISH LECTURER DERMATOPATHOLOGY LABORATORY Pathology/Cytolo gy TISSUE SPECIMEN FROM SKIN / Unknown 11/20/2024 3:10 PM SPANISH LECTURER 11/24/2024 1:32 PM SPANISH LECTURER Ellen Lui MD LAB - PATHOLOGY/CYTOLOGY ORD ERABLES Edited Result - Final DERMATOPATHOLOGY LABORATORY [facility] - Department of Dermatology [facility] Medicine [address] [place] [address], [address] [phone] documented in this encounter Visit Diagnoses Not on filedocumented in this encounter
--- OUTSIDE RECORDS SUMMARY | 2025-04-22 17:57 | XMS_ITS | Encounter Summary ---
Author Organization [facility] Healthcare Address [address] [place] [address] Care Team Providers Care Supervisor Cigarette Making Department Name Role Phone Carl Estrada MD Primary Care Provider Marti Mario NP Primary Care Provider Bayron Rich MD Primary Care Provider [phone] Encounter Details Date Type Department Care Team (Late st Contact Info) Description 07/10/2023 Telephone [facility] Primary Care Medicine Clinic [address] [facility] [address] [place] [address] Carl Estrada MD [facility] [address] [place] [address] Social History Tobacco Use Types Packs/Day Years [...] often do you attend chur ch or latter-day services? More than 4 times per year 04/23/2023 Do you belong to any clubs o r organizations such as hoahaoism groups, unions, fraternal or athletic groups, or [...] place to sleep or slept in a custodial (including now)? No 04/23/2023 Comments No Sex and Gender Information Value Date Recorded Sex Assigned at Not on file Legal Sex Female 2:25 AM BUILDING SERVICES TECHNICIAN Gender Identity Not on file Sexual Orientation [...] documented as of this encounter Care Teams Supervisor Cigarette Making Department Relationship Specialty Start Date End Date Carl Estrada MD PCP - General Internal Medicine 12/12/22 03/16/24 Marti Mario NP [address] [place] [address] PCP - General Nurse Practitioner 03/17/24 05/02/24 Bayron Rich MD [address] [facility] [phone] [place] [address] PCP - General 05/03/24 documented as of this encounter
--- OUTSIDE RECORDS SUMMARY | 2025-04-22 17:57 | XMS_ITS | Encounter Summary ---
Author Organization [facility] Address [address] [place] [address] Care Team Providers Care Safety Equipment Tester Name Role Phone Unavailable Primary Care Provider Unavailabl e Encounter Details Date Type Department Care Team (Late st Contact Info) Description 09/30/2024 Lab Requisition [facility] - DermPath Lab [address] [facility], [place] [address] Ellen Lui MD [address] [facility] 3 [place] [address] Social History Tobacco Use Types Packs/Day Years Used Date Smoking Tobacco: Former Cigarettes 0.8 20 Smokeless Tobacco: Never Comments:quit 25 yrs ago Alcohol Use Standard Drinks/Week Comments Yes 0 (1 standard drink = 0.6 oz pur e alcohol) 1 per week Comments No Sex and Gender Information Value Date Recorded Sex Assigned at Not on file Legal Sex Female 9:44 AM BLANKET CUTTING MACHINE OPERATOR Gender Identity Female 09/28/2017 8:52 AM BLANKET CUTTING MACHINE OPERATOR Sexual Orientation Not on file documented as of this encounter Plan of Treatment Not on file documented as of this encounter Procedures Procedure Name Priority Date/Time Associated Diagnosis Comments DERMATOPATHOLOGY Routine 09/30/2024 10:2 1 AM BLANKET CUTTING MACHINE OPERATOR documented in this encounter Results * DERMATOPATHOLOGY (09/30/2024 10:21 AM BLANKET CUTTING MACHINE OPERATOR) Case Report Dermatopathology Report Case: [id number] Authorizing Provider: Ellen Lui MD Collected: 09/30/2024 10:21 AM Ordering Location: [facility] - Received: 10/01/2024 07:30 AM DermPath Lab Pathologist: Pepito Landaverde MD Specimens: A) - Skin, left lower leg B) - Skin, left distal lateral leg 12:13 PM [facility] DERMATOPATHOLOGY LABORATORY Final Diagnosis Specimen A. 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 SKIN, left distal lateral leg: SQUAMOUS CELL CARCINOMA, WELL DIFFERENTIATED (C44.729) 12:13 PM [facility] DERMATOPATHOLOGY LABORATORY at 1213 BLANKET CUTTING MACHINE OPERATOR Clinical History A: R/O SCC, pink papule B: SCC vs DF, pink papule 12:13 PM [facility] DERMATOPATHOLOGY LABORATORY Gross Description Specimen [...] measuring 9x7x2 mm. Jar 0. 12:13 PM [facility] DERMATOPATHOLOGY LABORATORY Microscopic Description Specimen [...] showing evidence of premature cornification. 12:13 PM [facility] DERMATOPATHOLOGY LABORATORY Disclaimer An external and internal positive and negative controls are appropriate for the histochemical, immunohistochemical and immunofluorescence stain(s) in this case (if any), except where stated explicitly. The performance characteristics of the stain(s) cited in this report were developed and its performance characteristic determined by the Dermatopathology Laboratory at [facility], directed by Dr. Mateus Landaverde. These tests need not be, and therefore are not, approved by the [place] Food and Drug Administration. The tests are used for clinical purposes. Billing Codes Specimen Charges Stain Charges 81143 63391 1 1 4 12:13 PM BLANKET CUTTING MACHINE OPERATOR DERMATOPATHOLOGY LABORATORY Embedded Images 4 12:13 PM BLANKET CUTTING MACHINE OPERATOR DERMATOPATHOLOGY LABORATORY Pathology/Cytology TISSUE SPECIMEN FROM SKIN / Unknown 09/30/2024 10:21 AM BLANKET CUTTING MACHINE OPERATOR 10/01/2024 7:30 AM BLANKET CUTTING MACHINE OPERATOR Miscellaneous samples (specimen) TISSUE SPECIMEN FROM SKIN / Unknown 09/30/2024 10:21 AM BLANKET CUTTING MACHINE OPERATOR 10/01/2024 7:30 AM BLANKET CUTTING MACHINE OPERATOR us Ellen Lui MD LAB - PATHOLOGY/CYTOLOGY ORD ERABLES Final Result DERMATOPATHOLOGY LABORATORY [facility] - Department of Dermatology [facility] Medicine [address] [place] [address], [address] [phone] documented in this encounter Visit Diagnoses Not on filedocumented in this encounter
--- OUTSIDE RECORDS SUMMARY | 2025-04-22 17:57 | XMS_ITS | Encounter Summary ---
Author Organization [facility] Healthcare Address [address] [place] [address] Care Team Providers Care Surface Water Manager Name Role Phone Carl Estrada MD Primary Care Provider Lizbeth Barros RN Unavailable Marti Mario NP Primary Care Provider [phone] Bayron Rich MD Primary Care Provider [phone] Encounter Details Date Type Department Care Team (Late st Contact Info) Description 01/04/2023 Telephone [facility] Primary Care Medicine Clinic [address] [facility] [address] [place] [address] Carl Estrada MD [address] [place], [place] [id number] Social History Tobacco Use Types Packs/Day Years [...] How often do you attend chur or buddhism services? More than 4 times per year 11/16/2022 Do you belong to any clubs o r organizations such as roman catholic groups, unions, fraternal or athletic groups, or [...] place to sleep or slept in a [place] facility (including now)? No 11/16/2022 Comments No Sex and Gender Information Value Date Recorded Sex Assigned at Not on file Legal Sex Female 2:25 AM COUNTERPERSON Gender Identity Not on file Sexual Orientation [...] documented as of this encounter Care Teams Surface Water Manager Relationship Specialty Start Date End Date Carl Estrada MD PCP - General Internal Medicine 12/12/22 03/16/24 Marti Mario NP [address] [place] [address] PCP - General Nurse Practitioner 03/17/24 05/02/24 Bayron Rich MD [address] [facility] [phone] [place] [address] PCP - General 05/03/24 Lizbeth Barros, RN [address] [facility] [address] [place] [address] SHOP Outpatient Land Mobile Radio Technician 04/23/23 05/17/23 documented as of this encounter
--- OUTSIDE RECORDS SUMMARY | 2025-04-22 17:58 | XMS_ITS | CONTINUITY OF CARE DOCUMENT ---
Author Name ana, ana Address Unknown Organization [facility] Address [address] [address] [place] [address] Phone [phone] Care Team Providers Care Bowling Teacher Name Role Phone Nathan LE, Balwinder Unavailable Fabiano PATIENT APPOINTMENT COORDINATOR, Carlos Unavailable Fabiano PATIENT APPOINTMENT COORDINATOR, Carlos Unavailable [phone] PROBLEMS Condition Status Date Provider Notes Hypertension--Echo ef 60%, 04/2022 active Andrew Granger Hyperlipidemia active Balwinder Evans MD Anemia active Balwinder Evans MD Anxiety active Balwinder Evans MD GERD active Balwinder Evans MD Chronic pain active Balwinder Evans MD Former smoker, quit >30 yrs active Balwinder rojas MD CAD- s/p 2.5 by 12 resolute stent in LAD 2014, nml stress nuc 06/2021 active Balwinder Evans MD Fibromyalgia active Balwinder Evans MD Exposure to COVID-19 coronav irus - pneumonia , hospitalized , needed 02 active Balwinder Evans MD Mitral regurgitation, mild, Diast dysfn , RVSP 30 mm hg 04/2022 , nl sleep study 06/2021 active To sasha Evans MD Frequent falls active Balwinder Evans MD Splenic aneurysm--CTA chest 1.6 cm 08/2023 active 2022 Dontae Motamedshreya Cardiology examination active Balwinder Evans MD Rib pain, left sided active Balwinder Evans MD Dyspnea on exertion active Balwinder Evans MD Chest pain active Balwinder Evans MD Palpitations active Balwinder Evans MD ENCOUNTERS Date Type Provider Location Encounter Diag nosis - In-person encounter Office Visit Balwinder Evans MD [facility] Cardiology examinationRib pain, left sidedDyspnea on exertionChest painPalpitations - In-person encounter Office Visit Balwinder Evans MD [facility] Splenic aneurysm--CTA chest 1.6 cm 08/2023 - In-person encounter Office Visit Balwinder Evans MD [facility] Frequent falls - In-person encounter Office Visit Balwinder Evans MD [facility] Mitral regurgitation, mild, Diast dysfn , RVSP 30 mm hg 04/2022 , nl sleep study 06/2021 - In-person encounter Office Visit Balwinder Evans MD [facility] Hypertension--Echo ef 60%, 04/2022 - In-person encounter Office Visit Balwinder Evans MD [facility] Hypertension--Echo ef 60%, 04/2022 - In-person encounter Office Visit Balwinder Evans MD [facility] - In-person encounter Office Visit Balwinder Evans MD [facility] CAD- s/p 2.5 by 12 resolute stent in LAD 2013, nml stress nuc 06/2021Mitral regurgitation, mild, Diast dysfn , RVSP 30 mm hg 04/2022 , nl sleep study 06/2021 - In-person encounter Office Visit Balwinder Evans MD [facility] Exposure to COVID-19 coronavirus - pneumonia , hospitalized , needed - In-person encounter Office Visit Balwinder Evans MD [facility] Fibromyalgia - In-person encounter Office Visit Balwinder Evans MD [facility] Hypertension--Echo ef 60%, AD- s/p 2.5 by 12 resolute stent in LAD 2013, nml stress nuc 06/2021 - In-person encounter Office Visit Balwinder Evans MD [facility] Hypertension--Echo ef 60%, 04/2022HyperlipidemiaAne miaAnxietyGERDChronic painFormer smoker, quit >30 yrsCAD- s/p 2.5 by 12 resolute stent in LAD 2013, nml stress nuc 06/2021 VITAL SIGNS Date Observation Value Provider Body Mass Index (Ratio) 32.31 kg/m2 Fabio Evans MD blood pressure, diastolic 103 mm[Hg] Scarlet Fowler blood pressure, systolic 138 mm[Hg] Susu Richardsoggonzalez pulse rate 72 /min Urvashi Hernandez blood pressure, diastolic 103 mm[Hg] Al kacy Hernandez blood pressure, systolic 138 mm[Hg] Lana Hernandez oxygen saturation, oximetry 97 % Urvashi Hernandez weight E&M 194.2 [lb_av] Urvashi Hernandez blood pressure, cuff size regular Maxi Hernandez height E&M 65 [in_i] Urvashi Hernandez Body Mass Index (Ratio) 33.11 kg/m2 Fabio Evans MD blood pressure, diastolic -1 mm[Hg] Scarlet middletonLoggonzalez blood pressure, systolic 148 mm[Hg] Susu Mauriceoggonzalez blood pressure, diastolic 59 mm[Hg] Claire Sal blood pressure, systolic 148 mm[Hg] She kareem Sal oxygen saturation, oximetry 95 % Abbey [...] curt Sal blood pressure, systolic 128 mm[Hg] [facility] kareem Sal oxygen saturation, oximetry 98 % Abbey Sal pulse rate 66 /min Abbey Sal respiratory rate E&M 18 /min Abbey Sal weight E&M 198.8 [lb_av] Abbey Sal height E&M 65 [in_i] Abbey Sal Body Mass Index (Ratio) 33.54 kg/m2 Fabio Evans MD blood pressure, diastolic 69 mm[Hg] Scarlet nkLog blood pressure, systolic 141 mm[Hg] [facility] cuff size large Ayush martineza [place] blood pressure, diastolic 69 mm[Hg] Ta anca Van blood pressure, systolic 141 mm[Hg] Eisenberg valentina Van pulse rate 75 /min Isa Van weight E&M 201.6 [lb_av] Isa Van respiratory rate E&M 16 /min Isa Van oxygen saturation, oximetry 96 % Isa Van height E&M 65 [in_i] Isa Van Body Mass Index (Ratio) 33.61 kg/m2 Fabio Evans MD blood pressure, systolic 153 mm[Hg] Keegan Narvaez respiratory rate E&M 18 /min Kimmy Narvaez pulse rate 65 /min Diamond hawkins oxygen saturation, oximetry 97 % Diamond Narvaez weight E&M 202 [lb_av] Diamond hawkins blood pressure, cuff size regular Radha Narvaez height E&M 65 [in_i] Diamond hawkins Body Mass Index (Ratio) 32.61 kg/m2 Fabio Evans MD blood pressure, cuff size large Ke rri Aj blood pressure, diastolic 72 mm[Hg] Ke rri Michaeluenedewayne blood pressure, systolic 112 mm[Hg] Ker ri Loisnedewayne oxygen saturation, oximetry 98 % Rachel Aj respiratory rate E&M 16 /min Rachel Wali camacho pulse rate 64 /min Rachel Grvijaynenfe lder weight E&M 196 [lb_av] Rachel Gruenenfe lder height E&M 65 [in_i] Rachel Gruenenfe lder Body Mass Index (Ratio) 32.98 kg/m2 Fabio Evans MD blood pressure, diastolic 70 mm[Hg] Scarlet nkLogic blood pressure, systolic 126 mm[Hg] Susu kLogic blood pressure, diastolic 70 mm[Hg] Melody Feliz blood pressure, systolic 126 mm[Hg] Laury Feliz oxygen saturation, oximetry 92 % Marcello Feliz respiratory rate E&M 16 /min Marion Feliz pulse rate 64 /min Marcello moya weight E&M 198.2 [lb_av] Marcello rios height E&M 65 [in_i] Marcello moya blood pressure, cuff size regular Ayush Cai blood pressure, diastolic 76 mm[Hg] Ayush Cai blood pressure, systolic 120 mm[Hg] Be Cai Body Mass Index (Ratio) 32.11 kg/m2 Fabio Evans MD blood pressure, diastolic 80 mm[Hg] Juan tillman UrbinaMemoArun blood pressure, systolic 122 mm[Hg] Madison crowley UrbinaMemoArun oxygen saturation, oximetry 97 % Aida BartholomewArun pulse rate 64 /min Aida Bartholomew Arun weight E&M 193 [lb_av] Aida Bartholomew Arun blood pressure, resting Yes Maik recinos Ayad height E&M 65 [in_i] Aida Puma Dias Body Mass Index (Ratio) 32.28 kg/m2 Fabio Evans MD blood pressure, cuff size regular Cy hectorgrisel Rayo blood pressure, diastolic 80 mm[Hg] Cy hectorgrisel Rayo blood pressure, systolic 138 mm[Hg] Ashlee kalpana Cade oxygen saturation, oximetry 96 % Laura Cade respiratory rate E&M 16 /min Laura Cade pulse rate 65 /min Laura Lynch l height E&M 65 [in_i] Laura Lynch l weight E&M 194 [lb_av] Laura Lynch l ALLERGIES Allergy Name Onset Date Reaction Criticality Status LYRICA Low Criticality active GABAPENTIN Low Criticality active LATEX GLOVES Low Criticality active NEOSPORIN ORIGINAL Low Criticality a ctive LOTENSIN Low Criticality active CODEINE SULFATE Low Criticality acti ve CELEBREX Low Criticality active HISTORY OF MEDICATION USE Medication Status Instructions Dates Provider Indications Com ments furosemide 40 mg tablet active TAKE 1 TABLET BY MOUTH EVERY MORNING Dontae Granger atorvastatin 10 mg tablet active TAKE 1 TABLET DAILY Balwinder Evans MD atorvastatin 10 mg tablet completed Take 1 tablet by mouth once a day - Dontae Granger Gemtesa 75 mg tablet active Julita Ventimiglia CONCRETE PUMP OPERATOR HELPER atorvastatin 10 mg tablet completed TAKE 1 TABLET DAILY - Rachel Rocha dicyclomine 10 mg capsule completed TAKE 1 CAPSULE BY MOUTH 4 TIMES A DAY NEEDED - Julita Ventimiglia [employer]CR[employer]E PU[employer] OPERATOR HELPER paroxetine HCl 40 mg tablet active Balwinder Evans MD folic acid 1 mg tablet completed - Balwinder Evans MD Dayvigo 5 mg tablet completed - Julitaclinton Ramirezmiglia CONCRETE PUMP OPERATOR HELPER esomeprazole magnesium 40 mg capsule,delayed release(DR/EC) active [...] by mouth once a day - Julita Jamesdcglia [facility] aspirin 81 mg tablet,delayed release (DR/EC) active Take 1 tablet by mouth once a day Laura Cade irbesartan 300 mg tablet active Take 1 tablet by mouth once a day Laura Cade Paxil 30 mg tablet completed Take 1 tablet by mouth once a day - Julitaclinton Ramirezmiglia [employer]CRETE PUMP OPERATOR HELPER biotin 1 mg tablet completed Take 1 tablet by mouth once a day - Julita Ventimiglia [employer]CRETE PUMP OPERATOR HELPER Nasonex 50 mcg/actuation spray,non-aeros ol active Take 2 spray into both nostrils once a day as needed Laura Cade montelukast 10 mg tablet active Take 1 tablet by mouth once a day Laura Cade oxybutynin chloride 5 mg tablet completed Take 1 tablet by mouth once a day - Julita Ventimiglia [facility] SOCIAL HISTORY Date Observation Value Provider drug use no Dontae Reggiezadeb alcohol use, average drinks per day social Dontae Milliedeb alcohol use yes Dontae Reggiezadeb smoking status Never smoker Dontae Milliedeb drug use no Julita Ventimig cristian [facility] alcohol use, average drinks per day social Julita Ventimiglia [facility] alcohol use yes Julita Ventimig cristian [facility] smoking status Never smoker Julita Ventim iglia [facility] social history reviewed E&M revi ewed - no changes required Dontae Granger smoking status Never smoker Abbey Jonelle social history reviewed E&M revi ewed - no changes required Dontae Granger smoking status Never smoker Isa Yony social history reviewed E&M revi ewed - no changes required Balwinder Evans MD social history reviewed E&M revi ewed - no changes required Dontae Granger Exercise counseling yes Fernando Narvaez social history reviewed E&M revi ewed - no changes required Dontae Granger social history reviewed E&M revi ewed - no changes required Dontae Granger social history E&M S moking History: Anthony beltrán is a former smoker. Dontae Granger smoking history, tot al pack/day 1 PPD Rachel Rocha cigarette use yes Rachel greer smoking status Former smoker Rachel walshpercy social history reviewed E&M revi ewed - no changes required Balwinder Evans MD social history E&M S moking History: Anthony beltrán is a former smoker. Balwinder Evans MD social history reviewed E&M revi ewed - no changes required Balwinder Evans MD smoking history, tot al pack/day 1 PPD Marcello Feliz cigarette use yes Marcello rios smoking status Former smoker Marcello Sky social history E&M S moking History: Anthony beltrán is a former smoker. Cherelleon Trell smoking history, tot al pack/day 1 PPD Taewon Trell cigarette use yes Taewon Trell smoking status Former smoker Taewon Trell social history reviewed E&M revi ewed - no changes required Mariaelena Trell social history E&M S moking History: Anthony [...] history, tot al pack/day 1 PPD Laura Cade cigarette use yes Laura chaney smoking status Former smoker Laura casiano FUNCTIONAL STATUS Date Observation Value Provider HRA, CV Assess/Plan, Angina (inactive) Management Plan continue current therapy Julita STEWART HRA, CV Assess/Plan, Angina (inactive) Management Plan continue current therapy Dontae Granger HRA, CV Assess/Plan, Angina (inactive) Management Plan [...] (inactive) Management Plan continue current therapy Mariaelena aCi HRA, CV Assess/Plan, Angina (inactive) Management Plan continue current therapy Balwinder Evans MD INSURANCE PROVIDERS Payer name Policy type / Coverage type [place] red libertarian ID [facility] [id number] 1 [place] MEDIC[place] Medicare [id number] ADVANCE DIRECTIVES Name Date DISCUSSED - NO DECISION MADE TREATMENT PLAN Date Name Performer [id number],S, Dontae Paredesza i [id number],S, Dontae Motamedza i [id number],S, Dontae Motamedza i [id number],S, Dontae Motamedza i [id number],S, Dontae Motamedza i [id number],S, Julitaclinton Ramirez miglia [facility] [id number],S, Julita Venti miglia [facility] [id number],S,o n [facility] er updated medication list for this problem includes: Atorvastatin 10 Mg Tablet (Atorvastatin) ..... Take 1 tablet daily Julita Hernandez [facility] [id number],S,B P 148/59 w ill continue present medication regimen p atient will monitor BP at home H er updated medication list for this problem includes: Irbesartan 300 Mg Tablet (Irbesartan) ..... Take 1 tablet by mouth once a day Aspirin 81 Mg Tablet,delayed Release (dr/ec) (Aspirin) ..... Take 1 tablet by mouth once a day Julitaclinton Hernandez [facility] [id number],S,E F 60% on last echo w ill continue f/u echo Julitaclinton Hernandez [facility] [id number],C,S he has chronic SOB post covid and RSV S he is increasing activity n o chest pain S tress test negative for ischemia and last echo normal EF W ill continue medical management at this time Julitaclinton Hernandez [facility] [id number],S, Dontae Ahmedza i [id number],S, Dontae Ahmedza i [id number],S, Dontae Ahmedza i [id number],S, Dontae Ahmedza i [id number],S, Dontae Ahmedza i [id number],S, Dontae Ahmedza i [id number],S, Dontae Ahmedza i [id number],S, Dontae Ahmedza i [id number],S, Dontae Ahmedza i [id number],S, Dontae Ahmedza i [id number],S, Dontae Ahmedza i [id number],S, Dontae Ahmedza i [id number],S, Dontae Ahmedza i [id number],S, Dontae Ahmedza i [id number],S, Dontae Ahmedza i [id number],S, Dontae Ahmedza i [id number],S, Dontae Svetlanamedza i [id number],S, Dontae Svetlanamedza i [id number],S, Dontae Ahmedza i [id number],S, Dontae Svetlanamedza i [id number],S, Dontae Svetlanamedza i [id number],S, Dontae Motamedza i [id number],S, Balwinder Evans MD [id number],S, Balwinder Evans MD [id number],B, Balwinder Evans MD [id number],W, Balwinder Evans MD Cardiology:This visi t has been a part of the consistent, comprehensive, and ongoing management of the chronic medical condition(s) listed above for the patient. Her updated medication list for this problem includes: Furosemide 40 Mg Tablet (Furosemide) ..... Take 1 tablet by mouth every morning Irbesartan 300 Mg Tablet (Irbesartan) ..... Take 1 tablet by mouth once a day Aspirin 81 Mg Tablet,delayed Release (dr/ec) (Aspirin) ..... Take 1 tablet by mouth once a day Balwinder Evans MD Cardiology: O rders: X -Ray, Ribs (CPT-20122) C BC (INCLUDES DIFF/PLT) (1499) F ERRITIN (457) I BREANNA AND TOTAL IRON BINDING CAPACITY (7573) C OMPREHENSIVE METABOLIC PANEL, W/EGFR (61790) L IPID PANEL (9340) T SH, free T4, total T3 (7444) P ROBNP, N TERMINAL (31251) C XR- PA/Lat (CPT-89132) Balwinder Evans MD Cardiology: O rders: C BC (INCLUDES DIFF/PLT) (6399) F ERRITIN (457) I BREANNA AND TOTAL IRON BINDING CAPACITY (7573) C OMPREHENSIVE METABOLIC PANEL, W/EGFR (28772) L IPID PANEL (7600) T SH, free T4, total T3 (7444) P ROBNP, N TERMINAL (14625) Balwinder Evans MD Cardiology: O rders: C omplete Echo (74516) S tress Regadenoson (CPT-27273) C BC (INCLUDES DIFF/PLT) (6399) F ERRITIN (457) I BREANNA AND TOTAL IRON BINDING CAPACITY (7573) C OMPREHENSIVE METABOLIC PANEL, W/EGFR (28296) L IPID PANEL (7600) T SH, free T4, total T3 (7444) P ROBNP, N TERMINAL (23549) Balwinder Evans MD Cardiology: O rders: C omplete Echo (22759) S tress Regadenoson (CPT-56719) C BC (INCLUDES DIFF/PLT) (6399) F ERRITIN (457) I BREANNA AND TOTAL IRON BINDING CAPACITY (7573) C OMPREHENSIVE METABOLIC PANEL, W/EGFR (53140) L IPID PANEL (7600) T SH, free T4, total T3 (7444) P ROBNP, N TERMINAL (85085) C XR- PA/Lat (CPT-05841) Her updated medication list for this problem includes: Aspirin 81 Mg Tablet,delayed Release (dr/ec) (Aspirin) ..... Take 1 tablet by mouth once a day Balwinder Evans MD Cardiology: O rders: C omplete Echo (24717) S tress Regadenoson (CPT-91190) C BC (INCLUDES DIFF/PLT) (6399) F ERRITIN (457) I BREANNA AND TOTAL IRON BINDING CAPACITY (7573) C OMPREHENSIVE METABOLIC PANEL, W/EGFR (08767) L IPID PANEL (7600) T SH, free T4, total T3 (7444) P ROBNP, N TERMINAL (86494) Balwinder Evans MD Telehealth Dontae Granger Telehealth Dontae Granger Telehealth Dontae Granger Telehealth Dontae Granger Telehealth Dontae Granger Cardiology Julita Ventimigl ia [facility] Cardiology Julita Ventimigl ia [facility] Cardiology:on statin therpay H er updated medication list for this problem includes: Atorvastatin 10 Mg Tablet (Atorvastatin) ..... Take 1 tablet daily Julitaclinton Ramirezmiglia [facility] Cardiology:BP 148/59 w ill continue present medication regimen p atient will monitor BP at home H er updated medication list for this problem includes: Irbesartan 300 Mg Tablet (Irbesartan) ..... Take 1 tablet by mouth once a day Aspirin 81 Mg Tablet,delayed Release (dr/ec) (Aspirin) ..... Take 1 tablet by mouth once a day Julitaclinton Valladaresglia [facility] Cardiology:EF 60% on last echo w ill continue f/u echo Julitaclinton Ramirezmiglia [facility] Cardiology:She has c hronic SOB post covid and RSV S he is increasing activity n o chest pain S tress test negative for ischemia and last echo normal EF W ill continue medical management at this time Julitaclinton Ramirezmigljoey [facility] Cardiology Dontae Motamedzai Cardiology Dontae Granger Cardiology Dontae Granger Cardiology Dontae Granger Cardiology Dontae Granger Cardiology Dontae Motamedelijahi Cardiology Dontae Granger Cardiology Dontae Granger Cardiology Dontae Garnger Cardiology Dontae Granger Cardiology Dontae Granger Cardiology Dontae Granger Cardiology Dontae Granger Cardiology Dontae Ahmedzai Cardiology Dontae Ahmedzai Cardiology Dontae Ahmedzai Cardiology Dontae Ahmedzai Cardiology Dontae Ahmedzai Cardiology Dontae Ahmedzai Cardiology Dontae Ahmedzai Cardiology Dontae Ahmedzai Cardiology Dontae medzai Cardiology Balwinder Evans MD Cardiology Balwinder Evans [...] Cardiology Balwinder Evans MD Cardiology New Patient Toniya Shani best MD Cardiology New Patient Toniya Shani best MD Cardiology New Patient Toniya Shani best MD Cardiology New Patient Toniya Shani best MD Cardiology New Patient Toniya Shani best MD Date Name CXR- PA/Lat PROBNP, N TERMINAL TSH, free T4, total T3 LIPID PANEL COMPREHENSIVE METABO LIC PANEL, W/EGFR IRON AND TOTAL IRON BINDING CAPACITY FERRITIN CBC (INCLUDES DIFF/P LT) Monitor - Telemetry (Mobile Cardiac) Stress Regadenoson Complete Echo X-Ray, Ribs EKG CT Angio, abdomen an d pelvis CT Angio Chest (Aort a) Stress Regadenoson Complete Echo Sleep Study Home Stress Regadenoson Complete Echo Stress Regadenoson Complete Echo HISTORY OF PROCEDURES Procedure Date Procedure Name Provider Procedure Notes S tatus Complex e/m visit add on Balwinder Evans MD completed EKG Balwinder Evans [...]
--- OUTSIDE RECORDS SUMMARY | 2025-04-22 17:58 | XMS_ITS | Clinical Summary ---
Author Organization [facility] Address [address] [place] [address] Care Team Providers Care Amf Mechanic Name Role Phone Bayron Rich MD Primary Care Provider [phone] Allergies Active Allergy Reactions Criticality Noted Date [...] comments) High 03/18/2024 Elevated bili, LFTs, DILI Itdyxvep-Vipughrhub-Kcpvi yxin Unknown,Hives Medium 08/12/2015 Neosporin (Neomycin-Polymyx) Hives [...] B6. Assessment & Plan (12/12/2022 2:02 PM [employer]): [] Given phone number to make appointment [...] 08/31/2021 Overview (12/12/2022): History of HTN. On [id number] at home Assessment & Plan (12/12/2022 1:51 PM [employer]): [] Refileld irbesartan Assessment & Plan (08/31/2021 [...] boxes. Assessment & Plan (12/12/2022 1:53 PM [employer]): [] Provided extensive counseling in the office visit with an attending [] WIll continue current regimen. Assessment & Plan (08/31/2021 4:31 AM CDT): A/P: continue home paxil, low dose PRN alprazolam, TCA Coronary arteriosclerosis 04/28/2019 Overview (12/12/2022): Stent to LAD in 2013. On Aspirin monotherapy Assessment & Plan (12/12/2022 1:54 PM [employer]): [] Continue asa 81 and atorvastatin. Refills [...] disease Assessment & Plan (12/12/2022 2:00 PM [employer]): [] ccp sent [] Hand X rays [...] Other Medical ascending aorti c aneurysm; Comments: [facility] [place] 06/25/2015 - Hypertension Hypertension Hx Other Medical cataracts; Comm ents: [facility] [place] 06/25/2015 - Hx Other Medical coronary artery disease; Comments: [facility] [place] 06/25/2015 - Hypercholesterolemia High choles terol; Comments: [facility] [place] 06/25/2015 - Hx Other Medical hx DVT; Comment s: [facility] [place] 06/25/2015 - Hx Other Medical chronic sinus c ondition; Comments: [facility] [place] 06/25/2015 - Arthritis Arthritis; Comme nts: [facility] [place] 06/25/2015 - Family History Medical History Relation Name Comments Hypertension Son Hypertension; Relation Name Status Comments Son Social History Tobacco Use Types Packs/Day Years Used Date Smoking Tobacco: Former Smokeless Tobacco: Never Alcohol Use Standard Drinks/Week Comments Yes 0 (1 standard drink = 0.6 oz pur e alcohol) [facility] Utilities Answer Date Recorded In the [...] often do you attend chur ch or yarsani services? More than 4 times per year 03/18/2024 Do you belong to any clubs o r organizations such as mosque groups, unions, fraternal or athletic groups, or [...] place to sleep or slept in a mcc (including now)? No 03/18/2024 Personal Safety Answer Date Recorded Have you ever been in or are you currently in a harmful physical or emotional relationship or is someone making you feel afraid or unsafe? Denies 05/19/2024 Comments No Sex and Gender Information Value Date Recorded Sex Assigned at Not on file Legal Sex Female 2:25 AM [employer] Gender Identity Not on file Sexual Orientation [...] P M CDT Height 165.1 cm (5' 5) 05/19/2024 5:24 PM CDT Body Mass Index 32.32 05/19/2024 5:24 PM CDT Plan of Treatment Health Maintenance Due Date Last Done Comments Depression Screening 1945 Osteoporosis Screening-Bone Density Scan 1945 Hepatitis B Screening 1963 Well Visit 65+ 2010 Zoster Vaccine (2 of 3) 01/29/2014 12/04/2013 Fall Risk Assessment 03/20/2025 03/20/2024 Influenza Vaccine (Season Ended) 2025 12/12/2022, 09/02/2021, 09/25/2019, Additional history exists DTaP/Tdap/Td Vaccine (3 - Td or Tdap) [...] ORDER FERNANDO Final Result [facility] [address] [facility] Department [place] [address] from Last 3 Months or Most Recently Relevant to Health Maintenance Insurance MEDICARE [facility] MEDICARE [employer] MEDIC[employer] Advance Directives For more information, please contact: [phone] * Full Code (Latest Code Status on File) Date Activated Date Inactivated Comments 03/17/2024 11:29 PM 03/20/2024 9:21 PM * Full Code Date Activated Date Inactivated Comments 04/18/2023 5:37 PM 04/20/2023 6:38 PM * Full Code Date Activated Date Inactivated Comments 11/14/2022 7:41 PM 11/15/2022 10:07 PM * Full Code Date Activated Date Inactivated Comments 08/31/2021 5:07 AM 09/02/2021 9:50 PM Care Teams Amf Mechanic Relationship Specialty Start Date End Date Bayron Rich MD [address] [id number] [place] [address] PCP - General 05/03/24
--- OUTSIDE RECORDS SUMMARY | 2025-04-22 17:58 | XMS_ITS ---
Author Organization [facility] Address [address] [place] [address] Care Team Providers Care Clerical Car Checker Name Role Phone Bayron Rich MD Primary Care Provider [phone] Active Problems Problem Noted Date Diagnosed Date [...] B6. Assessment & Plan (12/12/2022 2:02 PM POULTICE MACHINE OPERATOR): [] Given phone number to make [...] 08/31/2021 Overview (12/12/2022): History of HTN. On [id number] at home Assessment & Plan (12/12/2022 1:51 PM POULTICE MACHINE OPERATOR): [] Refileld irbesartan Assessment & Plan [...] boxes. Assessment & Plan (12/12/2022 1:53 PM POULTICE MACHINE OPERATOR): [] Provided extensive counseling in the office visit with an attending [] WIll continue current regimen. Assessment & Plan (08/31/2021 4:31 AM CDT): A/P: continue home paxil, low dose PRN alprazolam, TCA Coronary arteriosclerosis 04/28/2019 Overview (12/12/2022): Stent to LAD in 2013. On Aspirin monotherapy Assessment & Plan (12/12/2022 1:54 PM POULTICE MACHINE OPERATOR): [] Continue asa 81 and atorvastatin. [...] disease Assessment & Plan (12/12/2022 2:00 PM POULTICE MACHINE OPERATOR): [] ccp sent [] Hand X [...]
--- OUTSIDE RECORDS SUMMARY | 2025-04-22 17:58 | XMS_ITS | Continuity of Care Document ---
Author Organization [facility] [place] [address] [place] [address] Phone Care Team Providers Care Field Agent Name Role Phone [facility] Unavailable Unavail able Unavailable Unavailable Unavailable Advance Directives Directive Yes / No Effective Date File Name No Information Encounters Encounter Description Practice Location Reason(s) For Visit Diagnoses Date Provider Providers Copied on Encounter [facility], [address], [place], [place], [id number], [place] tel:[phone] [facility] No Information [facility] [address], [address], [place], [place], [id number] , [place]. tel:[phone] Referring Provider: Cricket Chua, [address], [place], [address]. tel:[phone] Family History Family Member Type Diagnosis Age At Onset No Information Payers Payer name Insurance type Covered constitution party ID Authoriza tion(s) No Information Social [...]
--- OUTSIDE RECORDS SUMMARY | 2025-04-22 17:58 | XMS_ITS | Clinical Summary ---
Author Organization [facility] [address] [place] [address] Address [address] [place] [address] Care Team Providers Care Supplier Development Manager Name Role Phone Fabiano Marti SAJI Primary Care Provider [phone] Allergies Active Allergy Reactions Criticality Noted Date [...] instructions. Active fluticasone propionate (FLONASE) 50 mcg/spray [place], Suspension nasal inhaler Administer 2 Sprays in [...] 2024 Insurance MEDICARE PART A AND B T3 [employer]ION ACCESS/TRUE [employer] PPO Care Teams Supplier Development Manager Relationship Specialty Start Date End Date Marti Mario ANP [address] [address] PCP - General NURSE PRACTITIONER 12/30/18
--- OUTSIDE RECORDS SUMMARY | 2025-04-22 17:58 | XMS_ITS | Referral Summary ---
Author Organization [facility] Address [address] [place] [address] Care Team Providers Care Flight Nurse Name Role Phone Bayron Rich MD Primary Care Provider [phone] Allergies Active Allergy Reactions Criticality Noted Date [...] comments) High 03/18/2024 Elevated bili, LFTs, DILI Hdqhkggw-Okbvkcbnss-Axpoq yxin Unknown,Hives Medium 08/12/2015 Neosporin (Neomycin-Polymyx) Hives [...] B6. Assessment & Plan (12/12/2022 2:02 PM BODY TECHNICIAN): [] Given phone number to make appointment [...] 08/31/2021 Overview (12/12/2022): History of HTN. On [id number] at home Assessment & Plan (12/12/2022 1:51 PM BODY TECHNICIAN): [] Refileld irbesartan Assessment & Plan (08/31/2021 [...] boxes. Assessment & Plan (12/12/2022 1:53 PM BODY TECHNICIAN): [] Provided extensive counseling in the office visit with an attending [] WIll continue current regimen. Assessment & Plan (08/31/2021 4:31 AM CDT): A/P: continue home paxil, low dose PRN alprazolam, TCA Coronary arteriosclerosis 04/28/2019 Overview (12/12/2022): Stent to LAD in 2013. On Aspirin monotherapy Assessment & Plan (12/12/2022 1:54 PM BODY TECHNICIAN): [] Continue asa 81 and atorvastatin. Refills [...] disease Assessment & Plan (12/12/2022 2:00 PM BODY TECHNICIAN): [] ccp sent [] Hand X rays [...] drink = 0.6 oz pur e alcohol) [facility] Utilities Answer Date Recorded In the [...] often do you attend chur ch or methodist services? More than 4 times per year [...] place to sleep or slept in a senior care (including now)? No 03/18/2024 Personal Safety Answer Date Recorded Have you ever been in or are you currently in a harmful physical or emotional relationship or is someone making you feel afraid or unsafe? Denies 05/19/2024 Comments No Sex and Gender Information Value Date Recorded Sex Assigned at Not on file Legal Sex Female 2:25 AM BODY TECHNICIAN Gender Identity Not on file Sexual [...] MICROBIOLOGY - GENERAL ORDER FERNANDO Final Result [facility] [address] [facility] [place] [address] from Last 3 Months or Most Recently Relevant to Health Maintenance Insurance MEDICARE [facility] MEDICARE [facility] MEDICARE BLUE TRADITIONAL OOS Advance Directives For more information, please contact: [phone] * Full Code (Latest Code Status on File) Date Activated Date Inactivated Comments 03/17/2024 11:29 PM 03/20/2024 9:21 PM * Full Code Date Activated Date Inactivated Comments 04/18/2023 5:37 PM 04/20/2023 6:38 PM * Full Code Date Activated Date Inactivated Comments 11/14/2022 7:41 PM 11/15/2022 10:07 PM * Full Code Date Activated Date Inactivated Comments 08/31/2021 5:07 AM 09/02/2021 9:50 PM Care Teams Flight Nurse Relationship Specialty Start Date End Date Bayron Rich MD [id number] [place] [address] PCP - General 05/03/24
[2025-04-22 20:57] LABS: Iron 83 ug/dL (37-170)
[2025-04-22 21:09] LABS: Percent Iron Saturation 31 % (20-50)
[2025-04-22 21:22] LABS: Free T4 Free Thyroxine 1.27 ng/dL (0.78-2.19)
== END 2025-04-22 15:58 | disposition home or self-care (01) ==
LOC: ANHLAB 16:01
PROVIDERS: PCP Nurse Practitioner Adult Health; Visit Provider Internal Medicine Cardiovascular Disease
DX: R07.81 Pleurodynia (principal); R06.09 Other forms of dyspnea; E78.5 Hyperlipidemia, unspecified; R00.2 Palpitations; R07.9 Chest pain, unspecified; I72.8 Aneurysm of other specified arteries; I25.10 Atherosclerotic heart disease of native coronary artery without angina pectoris; R29.6 Repeated falls; I34.0 Nonrheumatic mitral (valve) insufficiency; M79.7 Fibromyalgia; G89.29 Other chronic pain; K21.9 Gastro-esophageal reflux disease without esophagitis; F41.9 Anxiety disorder, unspecified; D64.9 Anemia, unspecified; I10 Essential (primary) hypertension; Z13.6 Encounter for screening for cardiovascular disorders; Z20.828 Contact with and (suspected) exposure to other viral communicable diseases; Z87.891 Personal history of nicotine dependence
CPT/HCPCS: 36415; 71046; 71110; 80053; 80061; 82728; 83540; 83550; 83880; 84439; 84443; 84480; 85025

== ENCOUNTER 2025-07-30 14:44 | Outpatient (CLI) | payer MEDICARE, BC, SELFPAY ==
--- OUTSIDE RECORDS SUMMARY | 2025-07-30 14:48 | XMS_ITS | Encounter Summary ---
Author Organization [facility] Address [address] [place] [address] Care Team Providers Care Obstetrician And Gynaecologist Name Role Phone Jose Tian MD Unavailable [phone] Encounter Details Date Type Department Care Team (Late st Contact Info) Description 08/12/2019 Lab Requisition [facility] Care DermPath Lab [address] [facility] [place] [address] Sonia Ibanez DO [address] [facility] [address] [place] [address] Social History Tobacco Use Types Packs/Day Years Used Date Smoking Tobacco: Former Cigarettes 0.8 20 Smokeless Tobacco: Never Comments:quit 25 yrs ago Alcohol Use Standard Drinks/Week Comments Yes 0 (1 standard drink = 0.6 oz pur e alcohol) 1 per week Comments No Sex and Gender Information Value Date Recorded Sex Assigned at Not on file Legal Sex Female 9:44 AM ENGLISH LANGUAGE LEARNER TEACHER Gender Identity Female 09/28/2017 8:52 AM ENGLISH LANGUAGE LEARNER TEACHER Sexual Orientation Not on file documented as of this encounter Plan of Treatment Not on file documented as of this encounter Procedures Procedure Name Priority Date/Time Associated Diagnosis Comments DERMATOPATHOLOGY Routine 08/11/2019 12:0 0 AM CDT documented in this encounter Results * DERMATOPATHOLOGY (08/11/2019 12:00 AM CDT) Case Report Dermatopathology Report Case: [id number] Authorizing Provider: Sonia Ibanez DO Collected: 08/11/2019 12:00 AM Ordering Location: [facility] Lab Received: 08/12/2019 07:38 AM Pathologist: [...] The specimen consists of a shave measuring [id number]. Jar 0. 1:42 PM CDT DERMATOPATHOLOGY LABORATORY [...] characteristic determined by the Dermatopathology Laboratory at [facility], directed by Dr. Mateus Landaverde. These tests need not be, and therefore are not, approved by the [place] Food and Drug Administration. The tests are used for clinical purposes. Billing Codes Specimen Charges Stain Charges 78235 1 1:42 PM CDT DERMATOPATHOLOGY LABORATORY Embedded Images 1:42 PM CDT DERMATOPATHOLOGY LABORATORY Pathology/Cytolog y TISSUE SPECIMEN FROM SKIN / Unknown 08/11/2019 08/12/2019 7:38 AM CDT us Sonia Ibanez DO LAB - PATHOLOGY/CYTOLOGY ORDERABLES Final Result DERMATOPATHOLOGY LABORATORY [facility] - Department of Dermatology [address] [facility], 5th Floor Lab [address] [phone] documented in this encounter Visit Diagnoses Not on filedocumented in this encounter Care Teams Obstetrician And Gynaecologist Relationship Specialty Start Date End Date Jose Tian MD [address] [facility] [address] [place] [address] PCP - Attributed-MSSP 05/28/18 02/15/20 documented as of this encounter
--- OUTSIDE RECORDS SUMMARY | 2025-07-30 14:48 | XMS_ITS | Encounter Summary ---
Author Organization [facility] Healthcare Address [address] [place] [address] Care Team Providers Care Safety Engineer Name Role Phone Carl Estrada MD Primary Care Provider Marti Mario NP Primary Care Provider [phone] Bayron Rich MD Primary Care Provider [phone] Encounter Details Date Type Department Care Team (Late st Contact Info) Description 07/10/2023 Telephone [facility] Primary Care Medicine Clinic [address] [facility] [address] [facility] [address] [place] [address] Carl Estrada MD [facility] [address] [facility] [address] [place] [address] Social History Tobacco Use Types Packs/Day Years Used Date Smoking Tobacco: Former Smokeless Tobacco: Never Alcohol Use Standard Drinks/Week Comments Yes 0 (1 standard drink = 0.6 oz pur e alcohol) Social Connection and Isolation Panel Answer Date Recorded In a typical week, how many times do you talk on the phone with family, friends, or neighbors? More than three times a week 04/23/2023 How often do you get togethe r with friends or relatives? More than three times a week 04/23/2023 How often do you attend chur or gnosticist services? More than 4 times per year 04/23/2023 Do you belong to any clubs o r organizations such as christian groups, unions, fraternal or athletic groups, or [...] place to sleep or slept in a half-way (including now)? No 04/23/2023 Comments No Sex and Gender Information Value Date Recorded Sex Assigned at Not on file Legal Sex Female 2:25 AM GAS ENGINE OPERATOR COMPRESSORS Gender Identity Not on file Sexual Orientation [...] documented as of this encounter Care Teams Safety Engineer Relationship Specialty Start Date End Date Carl Estrada MD PCP - General Internal Medicine 12/12/22 03/16/24 Marti Mario NP [address] [place] [address] PCP - General Nurse Practitioner 03/17/24 05/02/24 Bayron Rich MD [address] [facility] [facility] [id number] [place] [address] PCP - General 05/03/24 documented as of this encounter
--- OUTSIDE RECORDS SUMMARY | 2025-07-30 14:48 | XMS_ITS | Clinical Summary ---
Author Organization [facility] [address] [place] [address] Address [address] [place] [address] Care Team Providers Care Lasting Room Machine Operator Name Role Phone Fabiano Marti SAJI Primary Care Provider [phone] Allergies Active Allergy Reactions Criticality Noted Date [...] instructions. Active fluticasone propionate (FLONASE) 50 mcg/spray [place], Suspension nasal inhaler Administer 2 Sprays in [...] 1-dose 75+ series) 2020 INFLUENZA VACCINE (#1) 2025 Insurance MEDICARE PART A AND B [place] ACCESS/TRUE [employer] PPO Care Teams Lasting Room Machine Operator Relationship Specialty Start Date End Date Marti Mario ANP [address] [address] PCP - General NURSE PRACTITIONER 12/30/18
--- OUTSIDE RECORDS SUMMARY | 2025-07-30 14:48 | XMS_ITS | Encounter Summary ---
Author Organization [facility] Healthcare Address [address] [place] [address] Care Team Providers Care Furnace Installer Helper Name Role Phone Carl Estrada MD Primary Care Provider Lizbeth Barros RN Unavailable Marti Mario NP Primary Care Provider [phone] Bayron Rich MD Primary Care Provider [phone] Encounter Details Date Type Department Care Team (Late st Contact Info) Description 01/04/2023 Telephone [facility] Primary Care Medicine Clinic [address] [place] [address] Carl Estrada MD [address] [place] [address] Social History Tobacco Use Types Packs/Day Years [...] any clubs o r organizations such as uatsdin groups, unions, fraternal or athletic groups, or [...] place to sleep or slept in a halfway (including now)? No 11/16/2022 Comments No Sex and Gender Information Value Date Recorded Sex Assigned at Not on file Legal Sex Female 2:25 AM BOAT JOINER Gender Identity Not on file Sexual Orientation [...] documented as of this encounter Care Teams Furnace Installer Helper Relationship Specialty Start Date End Date Carl Estrada MD PCP - General Internal Medicine 12/12/22 03/16/24 Marti Mario NP [address] [place] [address] PCP - General Nurse Practitioner 03/17/24 05/02/24 Bayron Rich MD [address] [facility] [id number] [place] [address] PCP - General 05/03/24 Lizbeth Barros, RN [address] [facility] [address] [place] [address] SHOP Outpatient Power Supply Engineer 04/23/23 05/17/23 documented as of this encounter
--- OUTSIDE RECORDS SUMMARY | 2025-07-30 14:48 | XMS_ITS | Encounter Summary ---
Author Organization [facility] Address [address] [facility] [place] [address] Care Team Providers Care Patient Relations Coordinator Name Role Phone Unavailable Primary Care Provider Unavailabl e Encounter Details Date Type Department Care Team (Late st Contact Info) Description 05/20/2025 Lab Requisition [facility] - DermPath Lab [address] [facility] [place] [address] Ellen Lui MD [address] [facility] [address] [place] [address] Social History Tobacco Use Types Packs/Day Years Used Date Smoking Tobacco: Former Cigarettes 0.8 20 Smokeless Tobacco: Never Comments:quit 25 yrs ago Alcohol Use Standard Drinks/Week Comments Yes 0 (1 standard drink = 0.6 oz pur e alcohol) 1 per week Comments No Sex and Gender Information Value Date Recorded Sex Assigned at Not on file Legal Sex Female 9:44 AM ESTIMATE CLERK Gender Identity Female 09/28/2017 8:52 AM ESTIMATE CLERK Sexual Orientation Not on file documented as of this encounter Plan of Treatment Not on file documented as of this encounter Procedures Procedure Name Priority Date/Time Associated Diagnosis Comments DERMATOPATHOLOGY Routine 05/20/2025 2:29 PM CDT documented in this encounter Results * DERMATOPATHOLOGY (05/20/2025 2:29 PM CDT) Case Report Dermatopathology Report Case: [id number] Authorizing Provider: Ellen Lui MD Collected: 05/20/2025 02:29 PM Ordering Location: [facility] - Received: 05/22/2025 10:36 AM DermPath Lab Pathologist: Alisha Monae MD Specimen: Skin, right ankle 2:03 PM CDT DERMATOPATHOLOGY LABORATORY Final Diagnosis Specimen A. SKIN, right ankle: SQUAMOUS CELL CARCINOMA, WELL DIFFERENTIATED (C44.722) 2:03 PM CDT DERMATOPATHOLOGY LABORATORY at 1403 CDT Clinical History R/O SCC 2:03 PM CDT DERMATOPATHOLOGY LABORATORY Gross Description Specimen A: Received is one formalin filled container labeled with the patient's name and designated right ankle. The specimen consists of a shave biopsy measuring 66g54x5 mm. Jar 0. 2:03 PM CDT DERMATOPATHOLOGY LABORATORY Microscopic Description Specimen A. SKIN, right ankle: Arising in the epidermis and extending into the dermis there are irregularly shaped aggregates of keratinocytes showing evidence of premature cornification. 2:03 PM CDT DERMATOPATHOLOGY LABORATORY Disclaimer An external and internal positive and negative controls are appropriate for the histochemical, immunohistochemical and immunofluorescence stain(s) in this case (if any), except where stated explicitly. The performance characteristics of the stain(s) cited in this report were developed and its performance characteristic determined by the Dermatopathology Laboratory at [facility], directed by Dr. Mateus Landaverde. These tests need not be, and therefore are not, approved by the [place] Food and Drug Administration. The tests are used for clinical purposes. Billing Codes Specimen Charges Stain Charges 46799 1 2:03 PM CDT DERMATOPATHOLOGY LABORATORY Embedded Images 2:03 PM CDT DERMATOPATHOLOGY LABORATORY Pathology/Cytolo gy TISSUE SPECIMEN FROM SKIN / Unknown 05/20/2025 2:29 PM CDT 05/22/2025 10:36 AM CDT us Ellen Lui MD LAB - PATHOLOGY/CYTOLOGY ORD ERABLES Final Result DERMATOPATHOLOGY LABORATORY [facility] - Department of Dermatology [address] 3rd Floor [place], [place] [address] [place] [address] documented in this encounter Visit Diagnoses Not on filedocumented in this encounter
--- OUTSIDE RECORDS SUMMARY | 2025-07-30 14:48 | XMS_ITS | Encounter Summary ---
Author Organization [facility] Address [address] [facility] [place] [address] Care Team Providers Care Fuse Cup Expander Name Role Phone Unavailable Primary Care Provider Unavailabl e Encounter Details Date Type Department Care Team (Late st Contact Info) Description 11/20/2024 Lab Requisition [facility] - DermPath Lab [address] [facility], [place] [address] Ellen Lui MD [address] [facility] [address] [place] [address] Social History Tobacco Use Types Packs/Day Years Used Date Smoking Tobacco: Former Cigarettes 0.8 20 Smokeless Tobacco: Never Comments:quit 25 yrs ago Alcohol Use Standard Drinks/Week Comments Yes 0 (1 standard drink = 0.6 oz pur e alcohol) 1 per week Comments No Sex and Gender Information Value Date Recorded Sex Assigned at Not on file Legal Sex Female 9:44 AM CONTRACTING OFFICER Gender Identity Female 09/28/2017 8:52 AM CONTRACTING OFFICER Sexual Orientation Not on file documented as of this encounter Plan of Treatment Not on file documented as of this encounter Procedures Procedure Name Priority Date/Time Associated Diagnosis Comments DERMATOPATHOLOGY Routine 11/20/2024 3:10 PM CONTRACTING OFFICER documented in this encounter Results * DERMATOPATHOLOGY (11/20/2024 3:10 PM CONTRACTING OFFICER) Case Report Dermatopathology Report Case: [id number] Authorizing Provider: Ellen Lui MD Collected: 11/20/2024 03:10 PM Ordering Location: [facility] - Received: 11/24/2024 01:32 PM DermPath [...] (D04.72) NOT PRESENT AT MARGIN 3:27 PM CONTRACTING OFFICER DERMATOPATHOLOGY LABORATORY Amendment electronically signed by Pepito Landaverde MD on 12/03/2024 at 1527 CONTRACTING OFFICER Amendment electronically signed by Pepito Landaverde MD on 11/28/2024 at 1656 CONTRACTING OFFICER at 1628 CONTRACTING OFFICER Clinical History SCC 3:27 PM [facility] DERMATOPATHOLOGY LABORATORY Gross Description Specimen A: Received is one formalin filled container labeled with the patient's name and designated left distal lateral leg.The specimen consists of an ellipse measuring 65r35r3 mm and is oriented with the suture/notch [...] characteristic determined by the Dermatopathology Laboratory at [facility], directed by Dr. Mateus Landaverde. These tests need not be, and therefore are not, approved by the [place] Food and Drug Administration. The tests are used for clinical purposes. Billing Codes Specimen Charges Stain Charges 05440 1 5 3:27 PM CONTRACTING OFFICER DERMATOPATHOLOGY LABORATORY Embedded Images 5 3:27 PM CONTRACTING OFFICER DERMATOPATHOLOGY LABORATORY Pathology/Cytolo gy TISSUE SPECIMEN FROM SKIN / Unknown 11/20/2024 3:10 PM CONTRACTING OFFICER 11/24/2024 1:32 PM CONTRACTING OFFICER Ellen Lui MD LAB - PATHOLOGY/CYTOLOGY ORD ERABLES Edited Result - Final DERMATOPATHOLOGY LABORATORY [facility] - Department of Dermatology [facility] Medicine [address] [place] [address], [address] [phone] documented in this encounter Visit Diagnoses Not on filedocumented in this encounter
--- OUTSIDE RECORDS SUMMARY | 2025-07-30 14:48 | XMS_ITS | Clinical Summary ---
Author Organization [facility] Address [address] [place] [address] Care Team Providers Care Environmental Assistant Name Role Phone Bayron Rich MD Primary Care Provider [phone] Allergies Active Allergy Reactions Criticality Noted Date [...] comments) High 03/18/2024 Elevated bili, LFTs, DILI Eftaecdy-Fwzlpswznd-Lcyqu yxin Unknown,Hives Medium 08/12/2015 Neosporin (Neomycin-Polymyx) Hives [...] B6. Assessment & Plan (12/12/2022 2:02 PM SAMPLE COORDINATOR): [] Given phone number to make appointment [...] 08/31/2021 Overview (12/12/2022): History of HTN. On [id number] at home Assessment & Plan (12/12/2022 1:51 PM SAMPLE COORDINATOR): [] Refileld irbesartan Assessment & Plan (08/31/2021 [...] boxes. Assessment & Plan (12/12/2022 1:53 PM SAMPLE COORDINATOR): [] Provided extensive counseling in the office visit with an attending [] WIll continue current regimen. Assessment & Plan (08/31/2021 4:31 AM CDT): A/P: continue home paxil, low dose PRN alprazolam, TCA Coronary arteriosclerosis 04/28/2019 Overview (12/12/2022): Stent to LAD in 2013. On Aspirin monotherapy Assessment & Plan (12/12/2022 1:54 PM SAMPLE COORDINATOR): [] Continue asa 81 and atorvastatin. Refills [...] disease Assessment & Plan (12/12/2022 2:00 PM SAMPLE COORDINATOR): [] ccp sent [] Hand X rays [...] 23 Scar 07/04/2012 12/12/2022 Postoperative infection 05/20/201211/14 Encounters Date Type Department Care Team Description 06/18/2025 12:37 PM CDT - 06/18/2025 11:59 PM CDT Hospital Encounter [place] [place] [address] Cervicalgia; Hip pain, acute, unspecified laterality Discharge Disposition: Discharge to home or self care from Last 3 Months Immunizations Immunization Administration Dates Next Due Influenza, Quadrivalent, Hig h Dose, Preservative Free, Intrr 12/12/2022,09/02/2021 Surgical History Surgery Date Site/Laterality Comments OTHER SURGICAL HISTORY coronary artery disease: coronary stent CHOLECYSTECTOMY Cholecystectomy APPENDECTOMY Medical History Medical History Date Comments Hx Other Medical ascending aorti c aneurysm; Comments: [facility] 06/25/2015 - Hypertension Hypertension Hx Other Medical cataracts; Comm ents: [facility] 06/25/2015 - Hx Other Medical coronary artery disease; Comments: [facility] 06/25/2015 - Hypercholesterolemia High choles terol; Comments: [facility] 06/25/2015 - Hx Other Medical hx DVT; Comment s: [facility] 06/25/2015 - Hx Other Medical chronic sinus c ondition; Comments: [facility] 06/25/2015 - Arthritis Arthritis; Comme nts: [facility] 06/25/2015 - Family History Medical History Relation Name Comments Hypertension Son Hypertension; Relation Name Status Comments Son Social History Tobacco Use Types Packs/Day Years Used Date Smoking Tobacco: Former Smokeless Tobacco: Never Alcohol Use Standard Drinks/Week Comments Yes 0 (1 standard drink = 0.6 oz pur e alcohol) [facility] Utilities Answer Date Recorded In the past 12 months has [employer], gas, oil, or water [place] threatened to shut off services in your home? No 03/18/2024 Social Connection and Isolation Panel Answer Date Recorded In a typical week, how many times do you talk on the phone with family, friends, or neighbors? More than three times a week 03/18/2024 How often do you get togethe r with friends or relatives? More than three times a week 03/18/2024 How often do you attend [facility] or adventism services? More than 4 times per year 03/18/2024 Do you belong to any clubs o r organizations such as congregational groups, unions, fraternal or athletic groups, or [...] place to sleep or slept in a nursing home (including now)? No 03/18/2024 Personal Safety Answer Date Recorded Have you ever been in or are you currently in a harmful physical or emotional relationship or is someone making you feel afraid or unsafe? Denies 05/19/2024 Comments No Sex and Gender Information Value Date Recorded Sex Assigned at Not on file Legal Sex Female 2:25 AM SAMPLE COORDINATOR Gender Identity Not on file Sexual Orientation [...] Fall Risk Assessment 03/20/2025 03/20/2024 Influenza Vaccine (#1) 2025 , 12/12/2022, 09/02/2021, Additional history exists DTaP/Tdap/Td Vaccine (3 - Td or Tdap) 07/04/2026 07/04/2016, 10/17/2006 Pneumococcal vaccine 65+ Completed 09/06/2017, 12/2011 Hepatitis C Screening Completed 03/18/2024 , 04/18/2023, 09/01/2021, Additional history exists Procedures Procedure Name Priority Date/Time Associated Diagnosis Comments XR HIP LEFT 2 OR 3 VIEWS Schedule Routine, Read Routine (OP Routine) 06/18/2025 1:20 PM CDT Hip pain, acute, unspecified laterality XR SPINE CERVICAL 2 OR 3 VIEWS Schedule Routine, Read Routine (OP Routine) 06/18/2025 1:20 PM CDT Cervicalgia HEPATITIS PANEL, ACUTE Routine 03/18/2024 10:10 AM CDT from Last 3 Months or Most Recently Relevant to Health Maintenance Results * XR Hip Left 2 or 3 Views (06/18/2025 1:20 PM CDT) Anatomical Region Laterality Modality Lower Extremities, Hip, Pelvis Left C omputed Radiography 06/20/2025 3:46 PM CDT Narrative 06/20/2025 3:49 PM CDT EXAM DESCRIPTION: 1. XR SPINE CERVICAL 2 OR 3 VIEWS; 2. XR HIP LEFT 2 OR 3 VIEWS REASON FOR STUDY: Pain thru neck into lt arm into left 1-3 digits,fall x months ago ; See DX Chronic left hip pain with frequent falls,into lt groin FINDINGS: Two views cervical spine and two views left hip submitted with comparison 05/19/2024. Cervical spine: No acute fracture. Mild anterolisthesis of C3 on C4. Mild C3-C4, moderate C4-C6 and mild C6-C7 degenerative disc disease. Bilateral cervical facet osteoarthritis. Multilevel inferior cervical uncovertebral osteoarthritis. Left hip: No acute fracture. Alignment is normal. Mild left hip osteoarthritis. IMPRESSION: 1. Jbol-pu-sieuhhzw C3-C7 degenerative disc disease, greatest at C4-C6 with bilateral cervical facet osteoarthritis. 2. Mild left hip osteoarthritis. THIS IS AN ELECTRONICALLY VERIFIED FINAL REPORT 06/20/2025 3:49 PM - Electronically signed by José Encinas M.D. T: Report ID: [id number] Reading Location: [id number] Procedure Note José Encinas MD - 06/20/2025 EXAM DESCRIPTION: 1. XR SPINE CERVICAL 2 OR 3 VIEWS; 2. XR HIP LEFT 2 OR 3 VIEWS REASON FOR STUDY: Pain thru neck into lt arm into left 1-3 digits,fall x months ago ; See DX Chronic left hip pain with frequent falls,into lt groin FINDINGS: Two views cervical spine and two views left hip submitted with comparison 05/19/2024. Cervical spine: No acute fracture. Mild anterolisthesis of C3 on C4. Mild C3-C4,moderate C4-C6 and mild C6-C7 degenerative disc disease. Bilateral cervical facet osteoarthritis. Multilevel inferior cervical uncovertebralosteoarthritis. Left hip: No acute fracture. Alignment is normal. Mild left hip osteoarthritis. IMPRESSION: 1. Tnhq-yc-qphbxdje C3-C7 degenerative disc disease, greatest at C4-C6with bilateral cervical facet osteoarthritis. 2. Mild left hip osteoarthritis. THIS IS AN ELECTRONICALLY VERIFIED FINAL REPORT 06/20/2025 3:49 PM - Electronically signed by José Encinas M.D. T: Report ID: [id number] Reading Location: [id number] Marti Mario NP IMG XR PROCEDURES Final Result * XR Spine Cervical 2 or 3 Views (06/18/2025 1:20 PM CDT) Anatomical Region Laterality Modality Spine N/A Computed Radiogr aphy 06/20/2025 3:46 PM CDT Narrative 06/20/2025 3:49 PM CDT EXAM DESCRIPTION: 1. XR SPINE CERVICAL 2 OR 3 VIEWS; 2. XR HIP LEFT 2 OR 3 VIEWS REASON FOR STUDY: Pain thru neck into lt arm into left 1-3 digits,fall x months ago ; See DX Chronic left hip pain with frequent falls,into lt groin FINDINGS: Two views cervical spine and two views left hip submitted with comparison 05/19/2024. Cervical spine: No acute fracture. Mild anterolisthesis of C3 on C4. Mild C3-C4, moderate C4-C6 and mild C6-C7 degenerative disc disease. Bilateral cervical facet osteoarthritis. Multilevel inferior cervical uncovertebral osteoarthritis. Left hip: No acute fracture. Alignment is normal. Mild left hip osteoarthritis. IMPRESSION: 1. Qorr-bf-fqpaprjv C3-C7 degenerative disc disease, greatest at C4-C6 with bilateral cervical facet osteoarthritis. 2. Mild left hip osteoarthritis. THIS IS AN ELECTRONICALLY VERIFIED FINAL REPORT 06/20/2025 3:49 PM - Electronically signed by José Encinas M.D. T: Report ID: [id number] Reading Location: [id number] Procedure Note José Encinas MD - 06/20/2025 EXAM DESCRIPTION: 1. XR SPINE CERVICAL 2 OR 3 VIEWS; 2. XR HIP LEFT 2 OR 3 VIEWS REASON FOR STUDY: Pain thru neck into lt arm into left 1-3 digits,fall x months ago ; See DX Chronic left hip pain with frequent falls,into lt groin FINDINGS: Two views cervical spine and two views left hip submitted with comparison 05/19/2024. Cervical spine: No acute fracture. Mild anterolisthesis of C3 on C4. Mild C3-C4,moderate C4-C6 and mild C6-C7 degenerative disc disease. Bilateral cervical facet osteoarthritis. Multilevel inferior cervical uncovertebralosteoarthritis. Left hip: No acute fracture. Alignment is normal. Mild left hip osteoarthritis. IMPRESSION: 1. Clms-qu-qvrmjcpd C3-C7 degenerative disc disease, greatest at C4-C6with bilateral cervical facet osteoarthritis. 2. Mild left hip osteoarthritis. THIS IS AN ELECTRONICALLY VERIFIED FINAL REPORT 06/20/2025 3:49 PM - Electronically signed by José Encinas M.D. T: Report ID: [id number] Reading Location: [place] [address] Marti Mario NP IMG XR PROCEDURES Final Result * Hepatitis panel, acute Blood (03/18/2024 10:10 AM CDT) Hep A IgM Nonreactive Nonreactive Comment: Interpretive Data: If Hep A IgM Ab is reported as Equivocal, a new sample should be drawn in two weeks for testing. Current interpretive data was last revised on 20. Hep B core IgM Nonreactive Nonreactive [facility] Comment: Interpretive Data If HepB Core IgM Ab is reported as Equivocal, a new sample should be drawn in two weeks for testing. Current interpretive data was last revised on 20. Hep C Ab Nonreactive Nonreactive [facility] Comment: Antibodies to HCV not detected. Does [...] last revised on 2020. HepBsAg Nonreactive Nonreactive [facility] Blood 03/18/2024 10:1 0 AM CDT 03/18/2024 12:38 PM CDT Florinda Atkinson MD LAB MICROBIOLOGY - GENERAL ORDER FERNANDO Final Result [facility] [address] [facility] Department [place] [address] from Last 3 Months or Most Recently Relevant to Health Maintenance Insurance MEDICARE [facility] MEDICARE BLUE [employer]AL [employer] MEDICARE BLUE [employer] Advance Directives For more information, please contact: [phone] * Full Code (Latest Code Status on File) Date Activated Date Inactivated Comments 03/17/2024 11:29 PM 03/20/2024 9:21 PM * Full Code Date Activated Date Inactivated Comments 04/18/2023 5:37 PM 04/20/2023 6:38 PM * Full Code Date Activated Date Inactivated Comments 11/14/2022 7:41 PM 11/15/2022 10:07 PM * Full Code Date Activated Date Inactivated Comments 08/31/2021 5:07 AM 09/02/2021 9:50 PM Care Teams Environmental Assistant Relationship Specialty Start Date End Date Bayron Rich MD [id number] [place] [address] PCP - General 05/03/24
--- OUTSIDE RECORDS SUMMARY | 2025-07-30 14:48 | XMS_ITS | Clinical Summary ---
Author Organization [facility] [employer] Address [address] [place] [address] Care Team Providers Care Parking Garage Manager Name Role Phone Unavailable Primary Care Provider Unavailabl e Source Comments [facility],non-owned Affiliates and Associated Physician Practices is amultiple site organization consisting of ambulatory clinics and hospital sitesin [place], [place], [place] and [place]. This disclosure is being madepursuant to the Care Everywhere program and may not contain all information available regarding this patient. Last updated 18.[facility] Allergies Active Allergy Reactions Criticality Noted Date Comments Buspirone Nausea and/or Vomiting 08/12/2015 Celecoxib Other 08/12/2015 Codeine Anaphylaxis High 08/12/2015 Latex Rash Low 08/12/2015 Benazepril Cough 08/12/2015 Demnbtbv-Lnwdbpftja-Zyzigbzbz Other 2014 Rofecoxib Other 08/12/2015 Medications * [...] Encounters Date Type Department Care Team Description 05/20/2025 Lab Requisition [facility] - DermPath Lab [address] [place] [address] Ellen Lui MD from Last 3 Months [...] on file Legal Sex Female 9:44 AM BRAKE LINER Gender Identity Female 09/28/2017 8:52 AM BRAKE LINER Sexual Orientation Not on file Last Filed Vital Signs Vital Sign Reading Time Taken Comments Blood Pressure 135/60 09/28/2017 9:33 AM BRAKE LINER Pulse 60 09/28/2017 9:33 AM BRAKE LINER Temperature - - Respiratory Rate 16 09/28/2017 9:33 AM BRAKE LINER Oxygen Saturation 97% 09/28/2017 9:33 AM BRAKE LINER Inhaled Oxygen Concentration - - Weight 85.7 kg (189 lb) 09/28/2017 9:33 AM BRAKE LINER Height 167.6 cm (5' 6) 01/29/2017 10:18 [...] yrs (1 - 1-dose 75+ series) 2020 DEPRESSION SCREENING 11/12/2024 COVID-19 VACCINE ( - season) 2025 INFLUENZA VACCINE (#1) 2025 9, 09/17/2018, 09/16/2018, Additional history exists HEPATITIS B [...] Comments DERMATOPATHOLOGY Routine 05/20/2025 2:29 PM CDT from Last 3 Months Results * DERMATOPATHOLOGY (05/20/2025 2:29 PM CDT) Case Report Dermatopathology Report Case: [id number] Authorizing Provider: Ellen Lui MD Collected: 05/20/2025 02:29 PM Ordering Location: [facility] - Received: 05/22/2025 10:36 AM [...] specimen consists of a shave biopsy measuring 34i74a1 mm. Jar 0. 2:03 PM CDT DERMATOPATHOLOGY [...] determined by the Dermatopathology Laboratory at [facility], directed by Dr. Mateus Landaverde. These tests need not be, and therefore are not, approved by the [place] Food and Drug Administration. The tests are used for clinical purposes. Billing Codes Specimen Charges Stain Charges 22855 1 2:03 PM CDT DERMATOPATHOLOGY LABORATORY Embedded Images 2:03 PM CDT DERMATOPATHOLOGY LABORATORY Pathology/Cytolo gy TISSUE SPECIMEN FROM SKIN / Unknown 05/20/2025 2:29 PM CDT 05/22/2025 10:36 AM CDT us Ellen Lui MD LAB - PATHOLOGY/CYTOLOGY ORD ERABLES Final Result DERMATOPATHOLOGY LABORATORY [facility] - Department of Dermatology [address] [place] [address], [facility] [phone] from Last 3 Months Insurance MEDICARE [facility], [facility]
--- OUTSIDE RECORDS SUMMARY | 2025-07-30 14:48 | XMS_ITS | Encounter Summary ---
Author Organization [facility] Address [address] [place] [address] Care Team Providers Care Cardiology Consultants Name Role Phone Carl Estrada MD Primary Care Provider Lizbeth Barros RN Unavailable [phone] Marti Mario NP Primary Care Provider [phone] Bayron Rich MD Primary Care Provider [phone] Encounter Details Date Type Department Care Team (Late st Contact Info) Description 01/24/2023 Telephone Primary Care Medicine Clinic [address] [facility] [address] [place] [address] Carl Estrada MD [address] [place] [address] Social History Tobacco Use Types [...] How often do you attend chur or congregational services? More than 4 times per year 11/16/2022 Do you belong to any clubs o r organizations such as restorationism groups, unions, fraternal or athletic groups, or [...] place to sleep or slept in a assisted (including now)? No 11/16/2022 Comments No Sex and Gender Information Value Date Recorded Sex Assigned at Not on file Legal Sex Female 2:25 AM FLIGHT MANAGER Gender Identity Not on file Sexual Orientation [...] documented as of this encounter Care Teams Cardiology Consultants Relationship Specialty Start Date End Date Carl Estrada MD PCP - General Internal Medicine 12/12/22 03/16/24 Marti Mario NP [address] [place] [address] PCP - General Nurse Practitioner 03/17/24 05/02/24 Bayron Rich MD [address] [facility] [id number] [place] [address] PCP - General 05/03/24 Lizbeth Barros, RN [address] [facility] [address] [place] [address] SHOP Outpatient Code Number Stamper 04/23/23 05/17/23 documented as of this encounter
--- OUTSIDE RECORDS SUMMARY | 2025-07-30 14:48 | XMS_ITS | Encounter Summary ---
Author Organization [facility] Address [address] [place] [address] Care Team Providers Care Fiberglass Finisher Name Role Phone Unavailable Primary Care Provider Unavailabl e Encounter Details Date Type Department Care Team (Late st Contact Info) Description 09/30/2024 Lab Requisition [facility] - DermPath Lab [address] [facility] [place] [address] Ellen Lui MD [address] [facility] [address] [place] [address] Social History Tobacco Use Types Packs/Day Years Used Date Smoking Tobacco: Former Cigarettes 0.8 20 Smokeless Tobacco: Never Comments:quit 25 yrs ago Alcohol Use Standard Drinks/Week Comments Yes 0 (1 standard drink = 0.6 oz pur e alcohol) 1 per week Comments No Sex and Gender Information Value Date Recorded Sex Assigned at Not on file Legal Sex Female 9:44 AM TELEMARKETING SALES REPRESENTATIVE Gender Identity Female 09/28/2017 8:52 AM TELEMARKETING SALES REPRESENTATIVE Sexual Orientation Not on file documented as of this encounter Plan of Treatment Not on file documented as of this encounter Procedures Procedure Name Priority Date/Time Associated Diagnosis Comments DERMATOPATHOLOGY Routine 09/30/2024 10:2 1 AM TELEMARKETING SALES REPRESENTATIVE documented in this encounter Results * DERMATOPATHOLOGY (09/30/2024 10:21 AM TELEMARKETING SALES REPRESENTATIVE) Case Report Dermatopathology Report Case: [id number] Authorizing Provider: Ellen Lui MD Collected: 09/30/2024 10:21 AM Ordering Location: [facility] - Received: 10/01/2024 07:30 AM DermPath Lab Pathologist: Pepito Landaverde MD Specimens: A) - Skin, left lower leg B) - Skin, left distal lateral leg 12:13 PM [facility] DERMATOPATHOLOGY LABORATORY Final Diagnosis Specimen A. 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 SKIN, left distal lateral leg: SQUAMOUS CELL CARCINOMA, WELL DIFFERENTIATED (C44.729) 12:13 PM [facility] DERMATOPATHOLOGY LABORATORY at [address] TELEMARKETING SALES REPRESENTATIVE Clinical History A: R/O SCC, pink papule B: SCC vs DF, pink papule 12:13 PM [facility] DERMATOPATHOLOGY LABORATORY Gross Description Specimen A: Received [...] measuring 9x7x2 mm. Jar 0. 12:13 PM [facility] DERMATOPATHOLOGY LABORATORY Microscopic Description Specimen A. SKIN, [...] showing evidence of premature cornification. 12:13 PM [facility] DERMATOPATHOLOGY LABORATORY Disclaimer An external and internal [...] purposes. Billing Codes Specimen Charges Stain Charges 34312 62464 1 1 4 12:13 PM TELEMARKETING SALES REPRESENTATIVE DERMATOPATHOLOGY LABORATORY Embedded Images 4 12:13 PM TELEMARKETING SALES REPRESENTATIVE DERMATOPATHOLOGY LABORATORY Pathology/Cytology TISSUE SPECIMEN FROM SKIN / Unknown 09/30/2024 10:21 AM TELEMARKETING SALES REPRESENTATIVE 10/01/2024 7:30 AM TELEMARKETING SALES REPRESENTATIVE Miscellaneous samples (specimen) TISSUE SPECIMEN FROM SKIN / Unknown 09/30/2024 10:21 AM TELEMARKETING SALES REPRESENTATIVE 10/01/2024 7:30 AM TELEMARKETING SALES REPRESENTATIVE us Ellen Lui MD LAB - PATHOLOGY/CYTOLOGY ORD ERABLES Final Result DERMATOPATHOLOGY LABORATORY [facility] - Department of Dermatology [facility] Medicine [address] [place] [address], [address] [phone] documented in this encounter Visit Diagnoses Not on filedocumented in this encounter
--- OUTSIDE RECORDS SUMMARY | 2025-07-30 14:48 | XMS_ITS | Encounter Summary ---
Author Organization [facility] Address [address] [facility] [place] [address] Care Team Providers Care Hebrew Cantor Name Role Phone Unavailable Primary Care Provider Unavailabl e Encounter Details Date Type Department Care Team (Late st Contact Info) Description 12/04/2024 Lab Requisition [facility] - DermPath Lab [address] [facility] [place] [address] Ellen Lui MD [address] [facility] [address] [place] [address] Social History Tobacco Use Types Packs/Day Years Used Date Smoking Tobacco: Former Cigarettes 0.8 20 Smokeless Tobacco: Never Comments:quit 25 yrs ago Alcohol Use Standard Drinks/Week Comments Yes 0 (1 standard drink = 0.6 oz pur e alcohol) 1 per week Comments No Sex and Gender Information Value Date Recorded Sex Assigned at Not on file Legal Sex Female 9:44 AM FUNERAL ARRANGER Gender Identity Female 09/28/2017 8:52 AM FUNERAL ARRANGER Sexual Orientation Not on file documented as of this encounter Plan of Treatment Not on file documented as of this encounter Procedures Procedure Name Priority Date/Time Associated Diagnosis Comments DERMATOPATHOLOGY Routine 12/04/2024 4:49 PM FUNERAL ARRANGER documented in this encounter Results * DERMATOPATHOLOGY (12/04/2024 4:49 PM FUNERAL ARRANGER) Case Report Dermatopathology Report Case: [id number] Authorizing Provider: Ellen Lui MD Collected: 12/04/2024 04:49 PM Ordering Location: [facility] - Received: 12/05/2024 01:41 PM DermPath Lab Pathologist: Cynthia Hernandez MD Specimen: Skin, left low leg 1:29 PM [facility] DERMATOPATHOLOGY LABORATORY Final Diagnosis Specimen A. SKIN, left low leg: ACTINIC KERATOSES, MULTIFOCAL (L57.0) DERMAL SCAR RESIDUAL SQUAMOUS CELL CARCINOMA NOT IDENTIFIED (L90.5) 1:29 PM [facility] DERMATOPATHOLOGY LABORATORY at [address] [facility] Clinical History R/O BX proven SCCIS 1:29 PM [facility] DERMATOPATHOLOGY LABORATORY Gross Description Specimen A: Received is one formalin filled container labeled with the patient's name and designated left low leg.The specimen consists of an ellipse measuring 14c65z2 mm and is oriented with the suture/notch [...] cassettes 3 -5. Jar 0. 1:29 PM [facility] DERMATOPATHOLOGY LABORATORY Microscopic [...] squamous cell carcinoma is identified. 1:29 PM [facility] DERMATOPATHOLOGY LABORATORY Disclaimer An external and internal positive and negative controls are appropriate for the histochemical, immunohistochemical and immunofluorescence stain(s) in this case (if any), except where stated explicitly. The performance characteristics of the stain(s) cited in this report were developed and its performance characteristic determined by the Dermatopathology Laboratory at [facility], directed by Dr. Mateus Landaverde. These tests need not be, and therefore are not, approved by the [place] Food and Drug Administration. The tests are used for clinical purposes. Billing Codes Specimen Charges Stain Charges 08300 1 5 1:29 PM FUNERAL ARRANGER DERMATOPATHOLOGY LABORATORY Embedded Images 5 1:29 PM FUNERAL ARRANGER DERMATOPATHOLOGY LABORATORY Pathology/Cytolo gy TISSUE SPECIMEN FROM SKIN / Unknown 12/04/2024 4:49 PM FUNERAL ARRANGER 12/05/2024 1:41 PM FUNERAL ARRANGER Ellen Lui MD LAB - PATHOLOGY/CYTOLOGY ORD ERABLES Final Result DERMATOPATHOLOGY LABORATORY [facility] - Department of Dermatology [facility] Medicine [address] [place] [address], [address] [phone] documented in this encounter Visit Diagnoses Not on filedocumented in this encounter
--- OUTSIDE RECORDS SUMMARY | 2025-07-30 14:48 | XMS_ITS ---
Author Organization [facility] Address [address] [place] [address] Care Team Providers Care Berry Planter Name Role Phone Bayron Rich MD Primary Care Provider Active Problems Problem Noted Date Diagnosed Date [...] B6. Assessment & Plan (12/12/2022 2:02 PM REPEATER CHIEF): [] Given phone number to make appointment [...] 08/31/2021 Overview (12/12/2022): History of HTN. On [id number] at home Assessment & Plan (12/12/2022 1:51 PM REPEATER CHIEF): [] Refileld irbesartan Assessment & Plan (08/31/2021 [...] boxes. Assessment & Plan (12/12/2022 1:53 PM REPEATER CHIEF): [] Provided extensive counseling in the office visit with an attending [] WIll continue current regimen. Assessment & Plan (08/31/2021 4:31 AM CDT): A/P: continue home paxil, low dose PRN alprazolam, TCA Coronary arteriosclerosis 04/28/2019 Overview (12/12/2022): Stent to LAD in 2013. On Aspirin monotherapy Assessment & Plan (12/12/2022 1:54 PM REPEATER CHIEF): [] Continue asa 81 and atorvastatin. Refills [...] disease Assessment & Plan (12/12/2022 2:00 PM REPEATER CHIEF): [] ccp sent [] Hand X rays [...]
[2025-07-30 19:11] LABS: Add Urine Microscopic? YES; Appearance Urine Clear (Clear); Glucose Urine UA Negative (Negative); Leukocyte Esterase Ur 1+ LEU/UL (Negative); Need Manual Microscopic Reviewed; Nitrate Urine Negative (Negative); Non Pathogenic Casts 0-2; Specific Grav Ur 1.019 (1.001-1.035)
== END 2025-07-30 14:45 | disposition home or self-care (01) ==
PROVIDERS: PCP Nurse Practitioner Adult Health; Visit Provider Nurse Practitioner Adult Health
DX: R39.9 Unspecified symptoms and signs involving the genitourinary system (principal)
CPT/HCPCS: 81001; 87086